=== PATIENT | female | born 1955 | race Caucasian/White ===

== ENCOUNTER 2020-05-17 09:48 | Emergency (ER) | payer MEDICARE, SELFPAY ==
--- NOTE | ~2020-05-17 | XR_ITS ---
EXAMINATION: XR humerus RT DATE: 05/17/2020 10:22 INDICATION: Right upper arm injury and pain. TECHNIQUE: 2 views of right humerus were obtained. COMPARISON: None. FINDINGS: Bone alignment is normal. No acute fracture. There is an old healed fracture deformity of p roximal humeral diaphysis. There is mild osteoarthritis of glenohumeral joint and acromioclavicular j oint. IMPRESSION: 1. Mild polyarticular osteoarthritis. Reviewed, dictated and finalized at location B. SUPERVISOR
[2020-05-17 10:00] VITALS: BP 140/78; PULSE 69; RESP 20; TEMP 37.7; O2SAT 98
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
== END 2020-05-17 11:50 | disposition home or self-care (01) ==
PROVIDERS: Emergency Provider Nurse Practitioner Family; PCP Internal Medicine
DX: S40.011A Contusion of right shoulder, initial encounter (principal); S60.222A Contusion of left hand, initial encounter; S60.221A Contusion of right hand, initial encounter; S60.00XA Contusion of unspecified finger without damage to nail, initial encounter; S50.12XA Contusion of left forearm, initial encounter; S50.11XA Contusion of right forearm, initial encounter; S70.11XA Contusion of right thigh, initial encounter; S40.021A Contusion of right upper arm, initial encounter; S51.811A Laceration without foreign body of right forearm, initial encounter; Y04.8XXA Assault by other bodily force, initial encounter
CPT/HCPCS: 73060; 99203; G0463

== ENCOUNTER 2021-07-31 18:59 | Emergency (ER) | payer MEDICARE, MEDICAID, SELFPAY ==
[2021-07-31] VITALS (26 sets, daily range): BP systolic 78–114; BP diastolic 47–71; PULSE 50–68; RESP 12–25; TEMP 36.4; O2SAT 95–100
[2021-07-31 19:27] LABS: Glucose Point of Care 96 mg/dl (65-105)
--- NOTE | 2021-07-31 19:37 | PC.NURSE ---
Pt to ED with report of accidentally taking her husbands night time medication instead of her own. Pt states their medications are sorted in a daily pill box and she accidentally picked up his instead of her own. Pt took Atorvastatin 80mg (1), Entresto 24mg-26mg (1), Metformin 500mg (2), Famotadine 20mg (1), ad Carvedilol 25mg (1). Pt has no complaints at this time. Denies dizziness, nausea, vomiting, or pain.
--- NOTE | 2021-07-31 19:38 | ECG_ITS ---
Measurements Intervals [place] Rate: 54 P: -3 AR: 195 QRS: -29 QRSD: 89 T: -27 QT: 447 QTc: 424 Interpretive Statements SINUS BRADYCARDIA BORDERLINE LEFT AXIS DEVIATION [QRS AXIS < -20] VOLTAGE CRITERIA FOR LVH [MEETS CRITERIA IN ONE OF: R(aVL), S(V1), R(V5), R(V5/V6)+S(V1)] NONSPECIFIC T-WAVE ABNORMALITY NO PREVIOUS ECG AVAILABLE FOR COMPARISON Electronically Signed On 08-01-2021 14:18:25 CDT by Della Oliveira M.D.
--- NOTE | 2021-07-31 19:41 | ED.OVERDOSE ---
HPI - Overdose General Chief Complaint: Overdose Stated Complaint: Accidently took husbands medication Time Seen by Provider: 07/31/21 19:30 Source: patient, family and RN notes reviewed Mode of arrival: ambulatory Limitations: no limitations History of Present Illness HPI Narrative: This is a 65 year old female who presents for evaluation after accidentally taking her 's medication. Patient took her 's Carvedilol 25 mg, Entresto 24/26 mg, metformin 1000 mg, famotidine 20 mg, and atorvastatin 80 mg at 4 pm. Patient normally only takes vitamins and celebrex. She states she became nauseated after eating a lot of chocolate to keep her blood sugar up. She also states she had diarrhea as well. She denies chest pain, shortness of breath, dizziness, vomiting, weakness. They checked her blood pressure at home and it was reading low. Poison control recommended that patient come to ER for evaluation. MD complaint: accidental overdose Related Data Home Medications Medication Instructions Recorded Confirmed celecoxib 200 mg PO BID 05/17/20 05/17/20 furosemide 40 mg PO DAILY 05/17/20 05/17/20 hydrocodone-acetaminophen 7.5 - 325 tablet PO TID 05/17/20 05/17/20 omeprazole 20 mg PO DAILY 05/17/20 05/17/20 potassium chloride [Klor-Con M20] 20 meq PO DAILY 05/17/20 05/17/20 Allergies Allergy/AdvReac Type Severity Reaction Status Date / Time No Known Allergies Allergy Verified 07/31/21 19:21 Review of Systems Review of Systems: All systems reviewed & are unremarkable except as noted in HPI and below PMFSH Past Medical History Medical History (Updated 08/01/21 @ 06:44 by Adri Joe MD) Arthritis Surgical History Surgical History (Updated 07/31/21 @ 19:47 by Adri Joe MD) History of knee replacement Hx of cholecystectomy Social History Social History (Updated 07/31/21 @ 19:47 by Adri Joe MD) Smoking status: Never smoker Alcohol intake: never Exam Const: General: no acute distress and alert Orientation/consciousness: patient oriented x3 Eyes: EOM: EOMs intact bilaterally Resp: Effort & Inspection: normal respiratory effort and no retractions Auscultation: clear to auscultation bilaterally Cardio: Rate: regular rate Rhythm: regular rhythm Heart sounds: no murmurs GI: GI Palp: Yes Soft to palpation, No Tenderness to palpation present (GI) and No Guarding due to palpation present (GI) Auscultation: normal bowel sounds Skin: General skin exam: normal color Rashes: no rashes Neuro: General: patient oriented x3, moves all extremities and CN's II-XI intact bilaterally Psych: Mental Status: mental status grossly normal Affect: normal affect Course Reevaluation(s) Reevaluation #1: Patient's HR has been decreasing in 40s with systolic BP in 80s. She is currently receiving IVF. Will give glucagon to check for response. Date: 07/31/21 Time: 21:00 Reevaluation #2: Patient's BP is improving. Patient is stating she is ready to go home. I tried to explain to patient that her BP is improving but it has only been improved for 30 minutes and she received medication to help. I explained that she will need to be monitored longer. Poison control states it takes 10 hours half life for coreg. I explained to patient if she leaves now she will be leaving AMA. Date: 07/31/21 Time: 21:45 Reevaluation #3: Nursing staff reports patient stated she was going home. Daughter stated she was leaving AMA. Date: 08/01/21 Time: 23:10 Vital Signs Vital signs: Vital Signs Temperature 97.6 F 07/31/21 19:16 Pulse Rate 60 07/31/21 19:16 Respiratory Rate 16 07/31/21 19:16 Blood Pressure 78/52 L 07/31/21 19:16 Pulse Oximetry 99 07/31/21 19:16 Temperature 97.6 F 07/31/21 19:16 Pulse Rate 62 07/31/21 22:15 Respiratory Rate 17 07/31/21 22:15 Blood Pressure 101/55 L 07/31/21 22:01 Pulse Oximetry 97 07/31/21 22:15 MDM - Overdose Lab Data Atte
--- NOTE | 2021-07-31 19:50 | PC.NURSE ---
Call poison control. Poison control reports expected symptoms with medications taken could include slight drowsiness, GI upset, and slight hypotension/bradycardia. All medications peak within 2-4 hours of ingestion. Pt took medications at 1600. Per poison control, monitor pt for 2-3 hours; if no change in stable condition pt can be discharged home. Dr. Joe made aware.
[2021-07-31 19:53] LABS: Basophils Absolute Auto 0.1 K/mm3 (0.0-0.1); Basophils Percent Auto 0.9 % (0.2-1.2); Eosinophils Absolute Auto 0.2 K/mm3 (0-0.3); Eosinophils Percent Auto 2.7 % (0-4.4); Hematocrit 41.8 % (37.0-47.0); Hemoglobin 13.4 g/dL (12.0-15.0); Immature Granulocyte Absolute 0.02 K/mm3 (0.00-0.031); Immature Granulocyte Percent A 0.3 % (0-0.5); Lymphocytes Absolute Auto 2.62 K/mm3 (0.9-3.2); Lymphocytes Percent Auto 34.7 % (18.3-44.2); Mean Corpuscular HGB Conc 32.1 g/dl (32-36); Mean Corpuscular Hemoglobin 31.7 pg (26-34); Mean Corpuscular Volume 98.8 fl (80-100); Mean Platelet Volume 11.8 fl (7.4-10.4); Monocytes Absolute Auto 0.5 K/mm3 (0.1-0.6); Monocytes Percent Auto 6.1 % (2.6-8.5); Neutrophils Absolute Auto 4.2 K/mm3 (1.3-6.7); Neutrophils Percent Auto 55.3 % (45.5-73.1); Platelet Count Result 197 k/mm3 (150-375); Red Blood Count 4.23 M/mm3 (4.2-5.4); Red Cell Distribution Width 13.5 % (11.5-14.5); White Blood Count 7.5 K/mm3 (4.5-10.0)
[2021-07-31] MEDS: SODIUM CHLORIDE 0.9% IV 1,000 ML 999 ML IV CONT (19:54)
[2021-07-31 20:05] LABS: Alanine Aminotransferase 17 U/L (4-35); Albumin Level 3.6 g/dL (3.5-5.1); Alkaline Phosphatase 63 U/L (38-126); Anion Gap 3 mmol/L (8-16); Aspartate Amino Transferase 28 U/L (14-36); Bilirubin,Total 0.2 mg/dL (0.2-1.3); Blood Urea Nitrogen 22 mg/dL (7-17); Calcium 8.8 mg/dL (8.4-10.2); Carbon Dioxide 26 mmol/L (22-30); Chloride 110 mmol/L (98-107); Estimated CRCL calculation 55 ml/min; Estimated Glomerular Filt Rate 56; Glucose 94 mg/dL (65-110); Magnesium 2.2 mg/dL (1.6-2.3); Sodium 139 mmol/L (137-145)
[2021-07-31 20:06] LABS: Partial Thromboplastin Time 26.1 SECONDS (22.3-36.8); Prothrombin Time 13.1 Seconds (11.1-14.7)
[2021-07-31 20:37] LABS: Lactic Acid Reflex 0.8 mmol/L (0.7-2.1)
[2021-07-31] MEDS: GLUCAGON FOR INJ 1 MG VIAL 5 MG IV PUSH (21:26)
--- NOTE | 2021-07-31 21:56 | PC.NURSE ---
closed - per elaine at poison control
--- NOTE | 2021-07-31 22:58 | PC.NURSE ---
PT REPORTS SHE IS GOING TO GO HOME. PT REPORTS SHE IS HUNGRY AND SHE IS UPSET BECAUSE NO ONE ANSWERED HER CALL LIGHT FAST SHE NEEDS. PT STATES I'VE BEEN HERE FOR A LONG TIME AND ALL YOU HAVE DONE IS GIVE ME FLUIDS. INFORMED PT POISON CONTROL RECOMMENDS HER TO BE WATCHED FOR A WHILE DUE TO INGESTION OF MEDICATIONS. PT AGITATED AND STATES I WANT TO LEAVE I'M HUNGRY. EVEN OFFERED PT MEAL AND SHE DENIED
== END 2021-07-31 23:03 | disposition left against medical advice (07) ==
LOC: ANHED 19:43
PROVIDERS: Emergency Provider General Practice; PCP Internal Medicine
DX: T65.91XA Toxic effect of unspecified substance, accidental (unintentional), initial encounter (principal); M19.90 Unspecified osteoarthritis, unspecified site; Z90.49 Acquired absence of other specified parts of digestive tract; R00.1 Bradycardia, unspecified
CPT/HCPCS: 36415; 80053; 82948; 83605; 83735; 85025; 85610; 85730; 93005; 96361; 96374; 99284; J1610; J7030

== ENCOUNTER 2022-07-05 09:10 | Emergency (ER) | payer MEDICARE, MEDICAID, SELFPAY ==
--- NOTE | 2022-07-05 09:13 | ED.URI ---
HPI - URI/Sore Throat General Chief Complaint: Upper Respiratory Infection Stated Complaint: cold/flu Time Seen by Provider: 07/05/22 09:13 Source: patient Mode of arrival: ambulatory Limitations: no limitations History of Present Illness HPI Narrative: Arcelia is a 66-year-old female patient presenting to the clinic today with complaints of headache, sore throat, fever, chills, runny nose, congestion, and body aches/chills. She reports she has had exposure to bronchitis and strep. She denies any shortness of breath or chest pain. MD elicited complaint: fever, cough, sore throat, rhinorrhea, nasal congestion and other (Headache, body aches chills) Related Data Home Medications Medication Instructions Recorded Confirmed celecoxib 200 mg capsule 200 mg PO BID 05/17/20 07/05/22 furosemide 40 mg tablet 40 mg PO DAILY 05/17/20 07/05/22 hydrocodone 7.5 mg-acetaminophen 7.5 - 325 tablet PO TID 05/17/20 07/05/22 325 mg tablet omeprazole 20 mg capsule,delayed 20 mg PO DAILY 05/17/20 07/05/22 release potassium chloride 20 mEq 20 meq PO DAILY 05/17/20 07/05/22 tablet,extended release(part/cryst) (Klor-Con M) ferrous sulfate 325 mg (65 mg 325 mg PO DAILY 07/05/22 07/05/22 iron) tablet pregabalin 50 mg capsule 50 mg PO DAILY 07/05/22 07/05/22 topiramate 100 mg tablet 100 mg PO BID 07/05/22 07/05/22 Allergies Allergy/AdvReac Type Severity Reaction Status Date / Time No Known Allergies Allergy Verified 07/31/21 19:21 Review of Systems Review of Systems: Pertinent positives per HPI. Patient denies any fever, chills, rash, headache, visual changes, dizziness, cough, shortness of breath, chest pain, palpitations, nausea, vomiting, diarrhea, constipation, abdominal pain, or any urinary issues. [facility] Past Medical History Medical History Arthritis Surgical History Surgical History History of knee replacement Hx of cholecystectomy Social History Social History Smoking status: Never smoker Alcohol intake: never Comments At the time of my signature, I reviewed and agree with the nursing past medical, surgical, social, and family history. There is no relevant family history pertinent to the patient complaint. Exam Narrative: General: Well-developed, well nourished, in no apparent distress Head: Normocephalic, atraumatic Eyes: Pupils equally round and reactive to light bilaterally, EOM intact, sclera and conjunctive clear, no discharge, lids normal Ears: TMs intact and dull, ear canals clear, no drainage, grossly hearing normal. Nose: Nares patent, clear nasal discharge, moderate inflammation, no sinus tenderness. Mouth: Oral pharynx without lesions or masses, good dentition, MMM. Oropharynx red, postnasal drip Neck: Supple, trachea midline, no enlargement of anterior or posterior cervical nodes, no thyroid masses or goiter palpable. Cardio: Regular rate and rhythm, s1 and s2 normal, no murmur appreciated. Resp: Clear to auscultation bilaterally, no rhonchi, rales, wheezing or rubs Course Course Emergency Course: Portions of this record may have been created with voice recognition software. Level of Care: Express Care Visit Vital Signs Vital signs: Vital Signs Temperature 38.5 C H 07/05/22 09:19 Pulse Rate 88 07/05/22 09:19 Respiratory Rate 16 07/05/22 09:19 Blood Pressure 124/72 07/05/22 09:19 Pulse Oximetry 98 07/05/22 09:19 Oxygen Delivery Room Air 07/05/22 09:19 Temperature 38.5 C H 07/05/22 09:19 Pulse Rate 88 07/05/22 09:19 Respiratory Rate 16 07/05/22 09:19 Blood Pressure 124/72 07/05/22 09:19 Pulse Oximetry 98 07/05/22 09:19 Oxygen Delivery Room Air 07/05/22 09:19 Vital signs reviewed MDM - URI/Sore Throat MDM Narrative Medical decision making narrative:
[2022-07-05 09:19] VITALS: BP 124/72; PULSE 88; RESP 16; TEMP 38.5; O2SAT 98
== END 2022-07-05 10:04 | disposition home or self-care (01) ==
PROVIDERS: Emergency Provider Nurse Practitioner Family; PCP Internal Medicine
DX: B34.9 Viral infection, unspecified (principal); J02.9 Acute pharyngitis, unspecified; R09.82 Postnasal drip; Z79.891 Long term (current) use of opiate analgesic; Z20.822 Contact with and (suspected) exposure to COVID-19
CPT/HCPCS: 87081; 87426; 87880; 99213; C9803; G0463

== ENCOUNTER 2022-07-06 09:01 | Emergency (ER) | payer MEDICARE, MEDICAID, SELFPAY ==
[2022-07-06 09:08] VITALS: BP 134/73; PULSE 73; RESP 20; TEMP 37.3; O2SAT 96
--- NOTE | 2022-07-06 09:19 | ED.EAR ---
HPI - Ear Problem General Chief complaint: Ear Stated complaint: Left ear Time Seen by Provider: 07/06/22 09:21 History of Present Illness HPI Narrative: patient presents with left er pain. patient states she wears hearing aids and noticed some bleeding from her left ear. no loss of hearing patient does wear heating aids in both ears. Related Data Home Medications Medication Instructions Recorded Confirmed celecoxib 200 mg capsule 200 mg PO BID 05/17/20 07/06/22 furosemide 40 mg tablet 40 mg PO DAILY 05/17/20 07/06/22 hydrocodone 7.5 mg-acetaminophen 7.5 - 325 tablet PO TID 05/17/20 07/06/22 325 mg tablet omeprazole 20 mg capsule,delayed 20 mg PO DAILY 05/17/20 07/06/22 release potassium chloride 20 mEq 20 meq PO DAILY 05/17/20 07/06/22 tablet,extended release(part/cryst) (Klor-Con M) ferrous sulfate 325 mg (65 mg 325 mg PO DAILY 07/05/22 07/06/22 iron) tablet pregabalin 50 mg capsule 50 mg PO DAILY 07/05/22 07/06/22 topiramate 100 mg tablet 100 mg PO BID 07/05/22 07/06/22 Allergies Allergy/AdvReac Type Severity Reaction Status Date / Time No Known Allergies Allergy Verified 07/06/22 09:26 Review of Systems Review of Systems: CONSTITUTIONAL: Denies fever, chills, or sweats. EYES: Denies visual changes, redness, or discharge. ENT: Denies rhinorrhea, congestion, sore throat, or otalgia. CARDIOVASCULAR: Denies chest pain, palpitations, or edema. RESPIRATORY: Denies cough or dyspnea. GASTROINTESTINAL: Denies abdominal pain, nausea, vomiting, or diarrhea. GENITOURINARY: Denies dysuria or hematuria. SKIN: Denies rash or itching. MUSCULOSKELETAL: Denies back pain, joint pain, or myalgia. NEUROLOGIC: Denies headache, numbness, or weakness. PSYCHIATRIC: Denies anxiety or depression. [facility] Past Medical History Medical History Arthritis Surgical History Surgical History History of knee replacement Hx of cholecystectomy Social History Social History Smoking status: Never smoker Alcohol intake: never Comments At time of signature, agree with nursing past medical, surgical, social and family history. There is no relevant family history pertinent to the presenting complaint Exam Narrative: GENERAL: Well-appearing, well-nourished, and in no acute distress. HEAD: Normocephalic, atraumatic. EYES: PERRLA and EOMI. ENT: Nares clear, no rhinorrhea or epistaxis. Mucous membranes moist. NECK: Supple. CHEST: Clear to auscultation. No respiratory distress. HEART: Regular rate and rhythm. No murmur heard. Normal peripheral pulses. ABDOMEN: Soft, nontender, nondistended, normal active bowel sounds. EXTREMITIES: Normal range of motion. No edema. SKIN: Warm, dry, no rash. NEURO: No focal deficits. Alert and oriented x3. [place] Coma Scale Eye Opening: Spontaneous 4 [place] Coma Scale Motor: Obeys Commands 6 [place] Coma Scale Verbal: Oriented 5 [place] Coma Scale Total 15 HENMT: Ears: Abnormal EAC present erythema, EAC tenderness and other (tympanic membrane intact ) Course Course Emergency Course: GENERAL: Well-appearing, well-nourished, and in no acute distress. HEAD: Normocephalic, atraumatic. EYES: PERRLA and EOMI. ENT: Nares clear, no rhinorrhea or epistaxis. Mucous membranes moist. NECK: Supple. CHEST: Clear to auscultation. No respiratory distress. HEART: Regular rate and rhythm. No murmur heard. Normal peripheral pulses. ABDOMEN: Soft, nontender, nondistended, normal active bowel sounds. EXTREMITIES: Normal range of motion. No edema. SKIN: Warm, dry, no rash. NEURO: No focal deficits. Alert and oriented x3. [place] Coma Scale Eye Opening: Spontaneous 4 [place] Coma Scale Motor: Obeys Commands 6 [place] Coma Scale Verbal: Oriented 5 [place] Coma Scale Total 15 Level of Care: Express Care Visit Vital
== END 2022-07-06 09:33 | disposition home or self-care (01) ==
PROVIDERS: Emergency Provider Nurse Practitioner Family; PCP Internal Medicine
DX: H60.92 Unspecified otitis externa, left ear (principal); M19.90 Unspecified osteoarthritis, unspecified site
CPT/HCPCS: 99213; G0463

== ENCOUNTER 2022-09-25 15:26 | Emergency (ER) | payer MEDICARE, MEDICAID, SELFPAY ==
[2022-09-25 15:36] VITALS: BP 145/73; PULSE 61; RESP 16; TEMP 37.2; O2SAT 99
--- NOTE | 2022-09-25 15:54 | ED.SKABFB ---
HPI - Skin/Abscess/Foreign Bdy General Stated complaint: Rash arms up to neck Time Seen by Provider: 09/25/22 16:11 Source: patient and RN notes reviewed Mode of arrival: ambulatory Limitations: no limitations History of Present Illness HPI narrative: 66-year-old female presents with concern for a rash on her arms and neck. She reports the rash started over the weekend after she was working in her yd. She reports she also used suntan lotion later that day, the rash is not on all of the areas of her body where she use some hand lotion such as her legs. She denies swollen tongue, swollen lips, trouble breathing. MD complaint: rash Related Data Home Medications Medication Instructions Recorded Confirmed celecoxib 200 mg capsule 200 mg PO BID 05/17/20 07/06/22 furosemide 40 mg tablet 40 mg PO DAILY 05/17/20 07/06/22 hydrocodone 7.5 mg-acetaminophen 7.5 - 325 tablet PO TID 05/17/20 07/06/22 325 mg tablet omeprazole 20 mg capsule,delayed 20 mg PO DAILY 05/17/20 07/06/22 release potassium chloride 20 mEq 20 meq PO DAILY 05/17/20 07/06/22 tablet,extended release(part/cryst) (Klor-Con M) ferrous sulfate 325 mg (65 mg 325 mg PO DAILY 07/05/22 07/06/22 iron) tablet pregabalin 50 mg capsule 50 mg PO DAILY 07/05/22 07/06/22 topiramate 100 mg tablet 100 mg PO BID 07/05/22 07/06/22 Allergies Allergy/AdvReac Type Severity Reaction Status Date / Time No Known Allergies Allergy Verified 07/06/22 09:26 Review of Systems Review of Systems: CONSTITUTIONAL: Denies malaise, chills, sweats, or fever. EYES: Denies redness, or discharge. ENT: Denies rhinorrhea, congestion, swollen lips, swollen tongue CARDIOVASCULAR: Denies chest pain, palpitations, or edema. RESPIRATORY: Denies cough or dyspnea. GASTROINTESTINAL: Denies abdominal pain, nausea, vomiting SKIN: Reports rash on bilateral forearms and neck MUSCULOSKELETAL: Denies joint pain or myalgia. NEUROLOGIC: Denies headache. All systems reviewed & are unremarkable except as noted in HPI and below PMFSH Past Medical History Medical History Arthritis Surgical History Surgical History History of knee replacement Hx of cholecystectomy Social History Social History Smoking status: Never smoker Alcohol intake: never Comments At time of signature, agree with nursing past medical, surgical, social and family history. There is no relevant family history pertinent to the presenting complaint Exam Narrative: GENERAL: Well-appearing, well-nourished, and in no acute distress. HEAD: Normocephalic, atraumatic. EYES: PERRLA, conjunctivae clear, and EOMI. ENT: Mucous membranes moist. Oropharynx without edema, erythema or lesions. NECK: Supple. No lymphadenopathy CHEST: Clear to auscultation. No respiratory distress. HEART: Regular rate and rhythm. SKIN: Warm, dry. Erythematous confluent papular rash noted to the bilateral forearms in the back of the neck, 1 urea noted on the left cheek NEURO: Alert and oriented x3. PSYCH: Normal mood and affect Course Course Emergency Course: Patient is aware of diagnosis, understands and agrees to treatment plan. Anticipatory guidance given. Patient agrees to follow-up as directed and is aware of reasons to seek care at the emergency department. Portions of this record may have been created with voice recognition software Level of Care: Express Care Visit Vital Signs Vital signs: Vital Signs Temperature 99 F 09/25/22 15:36 Pulse Rate 61 09/25/22 15:36 Respiratory Rate 16 09/25/22 15:36 Blood Pressure 145/73 H 09/25/22 15:36 Pulse Oximetry 99 09/25/22 15:36 Oxygen Delivery Room Air 09/25/22 15:36 Temperature 99 F 09/25/22 15:36 Pulse Rate 61 09/25/22 15:36 Respiratory Rate 16 09/25/22 15:36 Bloo
== END 2022-09-25 16:27 | disposition home or self-care (01) ==
PROVIDERS: Emergency Provider Nurse Practitioner; PCP Internal Medicine
DX: L25.5 Unspecified contact dermatitis due to plants, except food (principal); M19.90 Unspecified osteoarthritis, unspecified site
CPT/HCPCS: 99213; G0463

== ENCOUNTER 2022-10-08 08:49 | Emergency (ER) | payer MEDICARE, MEDICAID, SELFPAY ==
[2022-10-08 08:54] VITALS: BP 136/84; PULSE 88; RESP 20; TEMP 37; O2SAT 100
--- NOTE | 2022-10-08 08:59 | ED.SKABFB ---
HPI - Skin/Abscess/Foreign Bdy General Chief complaint: Skin/Abscess/Foreign Body Stated complaint: Rash on face Time Seen by Provider: 10/08/22 08:50 Source: patient and RN notes reviewed History of Present Illness HPI narrative: PATIENT IS A 66-YEAR-OLD FEMALE PRESENTS TO URGENT CARE WITH COMPLAINTS OF A RASH TO THE FACE. PATIENT PRESENTED TO THE URGENT CARE ON 09/25 AND WAS GIVEN A MEDROL DOSEPAK AND TRIAMCINOLONE FOR THE RASH ON BILATERAL ARMS. PATIENT THEN FOLLOWED UP WITH HER DOCTOR LAST FRIDAY AND WAS PLACED ON ANOTHER MEDROL DOSEPAK FOR THE RASH AROUND HER EYE AND FOREHEAD. PATIENT BELIEVES THAT SHE INITIALLY GOT INTO [facility]. PATIENT WAS NOT SEEN BY HER PCP AT THE TIME OF THE LAST PRESCRIPTION REFILL. NO OTHER ACUTE COMPLAINTS. NO ACUTE DISTRESS NOTED. PATIENT AWARE OF THE PLAN OF CARE. SOME PARTS OF THIS DICTATION WERE GENERATED BY VOICE RECOGNITION SOFTWARE AND MAY CONTAIN TYPOGRAPHICAL AND/OR GRAMMATICAL INACCURACIES. Related Data Home Medications Medication Instructions Recorded Confirmed celecoxib 200 mg capsule 200 mg PO BID 05/17/20 10/08/22 furosemide 40 mg tablet 40 mg PO DAILY 05/17/20 10/08/22 potassium chloride 20 mEq 20 meq PO DAILY 05/17/20 10/08/22 tablet,extended release(part/cryst) (Klor-Con M) ferrous sulfate 325 mg (65 mg 325 mg PO DAILY 07/05/22 10/08/22 iron) tablet Allergies Allergy/AdvReac Type Severity Reaction Status Date / Time No Known Allergies Allergy Verified 10/08/22 09:02 Review of Systems Review of Systems: CONSTITUTIONAL: Denies fever, chills, or sweats. EYES: Denies visual changes, redness, or discharge. ENT: Denies rhinorrhea, congestion, sore throat, or otalgia. CARDIOVASCULAR: Denies chest pain, palpitations, or edema. RESPIRATORY: Denies cough or dyspnea. GASTROINTESTINAL: Denies abdominal pain, nausea, vomiting, or diarrhea. GENITOURINARY: Denies dysuria or hematuria. SKIN: Reports of a rash around the left eye MUSCULOSKELETAL: Denies back pain, joint pain, or myalgia. NEUROLOGIC: Denies headache, numbness, or weakness. All other systems reviewed are negative, except as documented in HPI. [facility] Past Medical History Medical History Arthritis Surgical History Surgical History History of knee replacement Hx of cholecystectomy Social History Social History Smoking status: Never smoker Alcohol intake: never Comments At the time of my signature, I reviewed and agree with the nursing past medical, surgical, social, and family history. There is no relevant family history pertinent to the patient complaint. Exam Narrative: GENERAL: This is a well-nourished, well-developed patient, in no apparent distress. HEAD: normocephalic, atraumatic. EYES: PERRL. Sclera clear/white. Vision is grossly intact. EARS: External ears normal NOSE: External nose normal with no obvious nasal discharge, nares without redness, no rhinorrhea. THROAT: Mucous membranes moist NECK: Neck supple SKIN: Mild erythema/excoriation/dermatitis surrounding the left eye more notable to the medial upper orbital rim NEURO: awake, alert, and oriented to person, place and time. There were no obvious focal neurologic abnormalities. EXTREMITIES: No clubbing, cyanosis, or edema. Course Course Level of Care: Express Care Visit Vital Signs Vital signs: Vital Signs Temperature 98.6 F 10/08/22 08:54 Pulse Rate 88 10/08/22 08:54 Respiratory Rate 20 10/08/22 08:54 Blood Pressure 136/84 10/08/22 08:54 Pulse Oximetry 100 10/08/22 08:54 Oxygen Delivery Room Air 10/08/22 08:54 Temperature 98.6 F 10/08/22 08:54 Pulse Rate 88 10/08/22 08:54 Respiratory Rate 20 10/08/22 08:54 Blood Pressure 136/84 10/08/22 08:54 Pulse Oximetry 100 10/08/22 08:54 Oxygen Delive
== END 2022-10-08 09:16 | disposition home or self-care (01) ==
PROVIDERS: Emergency Provider Nurse Practitioner Family; PCP Internal Medicine
DX: L25.9 Unspecified contact dermatitis, unspecified cause (principal); M19.90 Unspecified osteoarthritis, unspecified site
CPT/HCPCS: 99213; G0463

== ENCOUNTER 2023-01-04 13:48 | Emergency (ER) | payer MEDICARE, MEDICAID, SELFPAY ==
[2023-01-04 14:00] VITALS: BP 123/68; RESP 16; TEMP 36.8; O2SAT 100
--- NOTE | 2023-01-04 14:04 | ED.GENADULT ---
HPI - General Adult General Chief complaint: Upper Respiratory Infection Stated complaint: sore throat/abdo pain Source: patient and RN notes reviewed History of Present Illness HPI narrative: 67 yo F presents to urgent care with complaints of sore throat, diarrhea, [place], nausea, lower abdominal discomfort, and lightheadedness. Pt states , she was at [employer] when she suddenly started to not feel well. Pt states she went home and had diarreha. Pt states she ate a little something and slept the majority of the day. Yesterday, her throat began to hurt and the rest of her symptoms began. Pt denies any vomiting, fevers, chest pain, or SOB. Pt denies any ear pain. Reports some congestion. States her diarrhea is getting better. Pt has taken an OTC cold and sinus med. Related Data Home Medications Medication Instructions Recorded Confirmed celecoxib 200 mg capsule 200 mg PO BID 05/17/20 10/08/22 furosemide 40 mg tablet 40 mg PO DAILY 05/17/20 10/08/22 potassium chloride 20 mEq 20 meq PO DAILY 05/17/20 10/08/22 tablet,extended release(part/cryst) (Klor-Con M) ferrous sulfate 325 mg (65 mg 325 mg PO DAILY 07/05/22 10/08/22 iron) tablet hydrocodone 7.5 mg-acetaminophen tablet 01/04/23 325 mg tablet omeprazole 20 mg capsule,delayed mg 01/04/23 release pregabalin 50 mg capsule mg 01/04/23 topiramate 100 mg tablet mg 01/04/23 Allergies Allergy/AdvReac Type Severity Reaction Status Date / Time No Known Allergies Allergy Verified 10/08/22 09:02 Review of Systems Review of Systems: Pertinent positives and pertinent negatives per HPI. [facility] Past Medical History Medical History Arthritis Surgical History Surgical History History of knee replacement Hx of cholecystectomy Social History Social History Smoking status: Never smoker Alcohol intake: never Comments At the time of my signature, I reviewed and agree with the nursing past medical, surgical, social, and family history. There is no relevant family history pertinent to the patient complaint. Exam Narrative: GENERAL: This is a well-nourished, well-developed patient, in no apparent distress. HEAD: normocephalic, atraumatic. EYES: Sclera clear/white. Vision is grossly intact. EARS: External ears normal, auditory canals clear and without drainage. Hearing grossly intact. NOSE: External nose normal with no obvious nasal discharge, nares without redness, no rhinorrhea. THROAT: Mucous membranes moist, posterior pharynx erythremic. NECK: Neck supple, non-tender without lymphadenopathy, masses or thyromegaly. CARDIOVASCULAR: Regular rate and rhythm without murmurs, gallops, or rubs. RESPIRATORY: Clear to auscultation. Breath sounds equal bilaterally. No wheezes, rales, or rhonchi. GASTROINTESTINAL: Abdomen soft, nondistended. Bowel sounds are active. No hepato-splenomegaly, or palpable masses. No guarding. Slight tenderness over suprapubic area. SKIN: warm, intact with no suspicious lesions or rash, good texture and turgor. NEURO: awake, alert, and oriented to person, place and time. There were no obvious focal neurologic abnormalities. BACK: Nontender without deformity or crepitus. No flank tenderness. Course Course Level of Care: Express Care Visit Vital Signs Vital signs: Vital Signs Temperature 98.3 F 01/04/23 14:00 Respiratory Rate 16 01/04/23 14:00 Blood Pressure 123/68 01/04/23 14:00 Pulse Oximetry 100 01/04/23 14:00 Oxygen Delivery Room Air 01/04/23 14:00 Temperature 98.3 F 01/04/23 14:00 Pulse Rate 63 01/04/23 14:31 Respiratory Rate 16 01/04/23 14:00 Blood Pressure 123/68 01/04/23 14:00 Pulse Oximetry 100 01/04/23 14:00 Oxygen Delivery Room Air 01/04/23 14:00 Reviewed Medical Decision [place]
[2023-01-04 14:31] VITALS: PULSE 63
== END 2023-01-04 14:43 | disposition home or self-care (01) ==
PROVIDERS: Emergency Provider Nurse Practitioner Family; PCP Internal Medicine
DX: K52.9 Noninfective gastroenteritis and colitis, unspecified (principal); Z20.822 Contact with and (suspected) exposure to COVID-19; M19.90 Unspecified osteoarthritis, unspecified site
CPT/HCPCS: 81003; 87081; 87426; 87880; 99213; C9803; G0463

== ENCOUNTER 2023-04-26 08:21 | Emergency (ER) | payer MEDICARE, MEDICAID, SELFPAY ==
[2023-04-26 08:31] VITALS: BP 149/71; PULSE 60; RESP 16; TEMP 36.8; O2SAT 100
--- NOTE | 2023-04-26 08:47 | ED.GENADULT ---
HPI - General Adult General Chief complaint: Upper Respiratory Infection Stated complaint: Sore Throat/Shortness of Breath/Nausea Source: patient, RN notes reviewed and old records reviewed Mode of arrival: ambulatory Limitations: no limitations History of Present Illness HPI narrative: 67-year-old female presents to [facility] with complaint cough, congestion, sore throat, fever, nausea, diarrhea, myalgia this started 2 days ago. Patient taking [id number] medications with no relief. Patient denies chest pain, shortness of breath, weakness, vomiting MD complaint: sore throat, congestion Onset (ago): day(s) (2-3) Related Data Home Medications Medication Instructions Recorded Confirmed celecoxib 200 mg capsule 200 mg PO BID 05/17/20 10/08/22 furosemide 40 mg tablet 40 mg PO DAILY 05/17/20 10/08/22 potassium chloride 20 mEq 20 meq PO DAILY 05/17/20 10/08/22 tablet,extended release(part/cryst) (Klor-Con M) ferrous sulfate 325 mg (65 mg 325 mg PO DAILY 07/05/22 10/08/22 iron) tablet hydrocodone 7.5 mg-acetaminophen tablet 01/04/23 325 mg tablet omeprazole 20 mg capsule,delayed mg 01/04/23 release pregabalin 50 mg capsule mg 01/04/23 topiramate 100 mg tablet mg 01/04/23 Allergies Allergy/AdvReac Type Severity Reaction Status Date / Time No Known Allergies Allergy Verified 10/08/22 09:02 Review of Systems Constitutional: Constitutional: Reports no additional constitutional complaints, Reports body ache(s), Denies chills, Denies fatigue, Reports fever(s) and Denies headache(s) Eyes: Eyes: Reports no additional eye complaints and Denies blurry vision ENT: Reports system reviewed and no additional complaints, except as documented, Denies vertigo, Denies dizziness, Denies ear discharge, Denies otalgia, Denies facial pain, Denies headache(s), Reports nasal congestion, Denies nasal discharge, Denies sinus pain, Denies sinus pressure and Reports sore throat Cardiovascular: Cardiovascular: Reports no additional cardiovascular complaints, Denies chest pain, Denies chest pain at rest, Denies rapid heart rate and Denies dyspnea Respiratory: Respiratory: Reports no additional respiratory complaints, Denies chest congestion, Reports cough, Denies pain on inspiration, Denies pain with cough and Denies dyspnea Gastrointestinal: Gastrointestinal: Denies abdominal pain, Reports diarrhea, Reports nausea and Denies vomiting Integumentary/Breasts: Skin/Breast: Denies rash Neurologic: Reports system reviewed and no additional complaints, except as documented, Denies vertigo, Denies dizziness and Denies headache(s) Endocrine: Endocrine: Denies fatigue PMFSH Past Medical History Medical History Arthritis Surgical History Surgical History History of knee replacement Hx of cholecystectomy Social History Social History Smoking status: Never smoker Alcohol intake: never Comments At the time of my signature, I reviewed and agree with the nursing past medical, surgical, social, and family history. There is no relevant family history pertinent to the patient complaint. Exam Const: General: cooperative, healthy appearing, no acute distress and well nourished Nutritional Appearance: well nourished Orientation/consciousness: patient oriented x3 Limitations: no limitations HENMT: Head: normal to inspection and normocephalic Ears: external ears normal, TM's normal bilaterally, mastoids normal and Abnormal EAC present Face/Nose/Sinus: normal facial exam Face and sinus: normal facial exam Mouth: Yes Normal oral and palatal mucosa present, Yes oropharynx normal and Yes moist mucous membranes Throat: uvula midline, posterior oropharynx abnormal erythema and no uvular edema Eyes: General: appearance normal, both eyes and all related structures
== END 2023-04-26 09:14 | disposition home or self-care (01) ==
PROVIDERS: Emergency Provider Registered Nurse; PCP Internal Medicine
DX: J02.9 Acute pharyngitis, unspecified (principal); B97.89 Other viral agents as the cause of diseases classified elsewhere; Z96.659 Presence of unspecified artificial knee joint; Z20.822 Contact with and (suspected) exposure to COVID-19
CPT/HCPCS: 87081; 87426; 87804; 87880; 99213; C9803; G0463

== ENCOUNTER 2024-01-03 09:04 | Emergency (ER) | payer MEDICARE, MEDICAID, SELFPAY ==
[2024-01-03 09:12] VITALS: BP 147/69; PULSE 51; RESP 20; TEMP 36.5; O2SAT 100
--- NOTE | 2024-01-03 09:38 | ED.GENADULT ---
HPI - General Adult General Chief complaint: Unspecified Stated complaint: had cardio version/heart feels off Time Seen by Provider: 01/03/24 09:24 Source: patient, RN notes reviewed and old records reviewed Mode of arrival: ambulatory Limitations: no limitations History of Present Illness HPI narrative: 68-year-old female to Express Care for complaint dizziness, weakness, lightheadedness, shortness of breath since yesterday. Patient endorses cardioversion 1 month ago as well as recent medication adjustments. Patient states that she checked her vitals this morning and that her rate was 45 at home. Patient drove herself to [facility], stating that she wants to get checked out. Patient denies chest pain, recent illness, allergy. Patient hypertensive and bradycardic in triage. Patient ambulates with steady gait. Patient resting anxiously and tearful in exam room. Respirations even and nonlabored. Patient in no acute distress. Related Data Home Medications Medication Instructions Recorded Confirmed celecoxib 200 mg capsule 200 mg PO BID 05/17/20 10/08/22 furosemide 40 mg tablet 40 mg PO DAILY 05/17/20 10/08/22 ferrous sulfate 325 mg (65 mg 325 mg PO DAILY 07/05/22 10/08/22 iron) tablet hydrocodone 7.5 mg-acetaminophen tablet 01/04/23 325 mg tablet omeprazole 20 mg capsule,delayed mg 01/04/23 release pregabalin 50 mg capsule mg 01/04/23 topiramate 100 mg tablet mg 01/04/23 alendronate 70 mg tablet mg PO 01/03/24 amiodarone 200 mg tablet mg 01/03/24 apixaban 5 mg tablet (Eliquis) mg 01/03/24 lisinopril 2.5 mg tablet mg 01/03/24 topiramate 100 mg tablet mg 01/03/24 Allergies Allergy/AdvReac Type Severity Reaction Status Date / Time No Known Allergies Allergy Verified 10/08/22 09:02 Review of Systems Review of Systems: All systems reviewed & are unremarkable except as noted in HPI and below Constitutional: Constitutional: Reports as per HPI and Reports weakness Eyes: Eyes: Reports no additional eye complaints ENT: Reports system reviewed and no additional complaints, except as documented Cardiovascular: Cardiovascular: Reports as per HPI, Denies chest pain, Denies syncope, Reports lightheadedness, Denies dyspnea and Reports slow heart rate Respiratory: Respiratory: Reports no additional respiratory complaints, Denies cough and Reports dyspnea Musculoskeletal: Musculoskeletal: Reports no additional musculoskeletal complaints Neurologic: Reports system reviewed and no additional complaints, except as documented Psychiatric: Psychiatric: Reports no additional psychiatric complaints PMFSH Past Medical History Medical History Arthritis Surgical History Surgical History History of knee replacement Hx of cholecystectomy Social History Social History Smoking status: Never smoker Alcohol intake: never Comments At the time of my signature, I reviewed and agree with the nursing past medical, surgical, social, and family history. There is no relevant family history pertinent to the patient complaint. Exam Const: General: cooperative, no acute distress, well developed, alert, anxious, tired appearing, uncomfortable, well groomed and well nourished Nutritional Appearance: well nourished Orientation/consciousness: patient oriented x3 Limitations: no limitations HENMT: Head: normal to inspection Ears: external ears normal Face/Nose/Sinus: Normal external nose present, Normal nares present, normal facial exam, No erythema and No edema Face and sinus: normal facial exam, no erythema and no edema Mouth: Yes Normal oral and palatal mucosa present Eyes: General: appearance normal, both eyes and all related structures Neck: Neck: normal visual inspection, full ROM and no meningeal signs Lymphatic: no lymphade
--- NOTE | 2024-01-03 09:50 | ECG_ITS ---
Test Date: 2024-01-03 09:25:34 Measurements Intervals [place] Rate: 40 P: -63 NH: 151 QRS: -36 QRSD: 98 T: 267 QT: 493 QTc: 405 Interpretive Statements SLOW SINUS BRADYCARDIA WITH MARKED SINUS ARRHYTHMIA WITH OCCASIONAL SUPRAVENTRICULAR PREMATURE COMPLEXES LEFT AXIS DEVIATION ST-T WAVE ABNORMALITY IN ANTEROLAT/INF LEADS- CONSIDER ISCHEMIA BASELINE WANDER- I, II, AVR, AVL, V1 ABNORMAL ECG No previous ECG available for comparison Electronically Signed On 01-03-2024 10:50:37 CDT by Pradeep Torres D.O.
--- NOTE | 2024-01-03 09:55 | PC.NURSE ---
Brought direct to room, EKG done and shown to provider. Patient remains stable. No SOB or chest pain. States doctor removed her metoprolol 3 days ago. Arranging to go to hospital. EMS called.
== END 2024-01-03 10:00 | disposition short-term general hospital (02) ==
LOC: EXPBETH 09:07
PROVIDERS: Emergency Provider Nurse Practitioner Family; PCP Internal Medicine
DX: R00.1 Bradycardia, unspecified (principal); R42 Dizziness and giddiness; R53.1 Weakness; R94.31 Abnormal electrocardiogram [ECG] [EKG]; M19.90 Unspecified osteoarthritis, unspecified site
CPT/HCPCS: 93005; 99215; G0463

== ENCOUNTER 2024-01-03 10:33 | Emergency (ER) | payer MEDICARE, MEDICAID, SELFPAY ==
--- NOTE | ~2024-01-03 | XR_ITS ---
EXAMINATION: XR chest 2V DATE: 01/03/2024 11:11 INDICATION: Weakness. Bradycardia. TECHNIQUE: Frontal and lateral views of the chest were obtained. COMPARISON: None. FINDINGS: There is no pneumonia, pleural effusion, or pneumothorax. Cardiomegaly is noted. Surgical c lips in the right upper quadrant are likely from cholecystectomy. IMPRESSION: 1. Cardiomegaly. Reviewed, dictated and finalized at location A. IMPRESSION: 1. Cardiomegaly.
[2024-01-03 10:32] VITALS: BP 153/59; PULSE 58; RESP 20; O2SAT 100
--- NOTE | 2024-01-03 10:39 | ECG_ITS ---
Test Date: 2024-01-03 10:41:18 Measurements Intervals [place] Rate: 44 P: 7 IN: 173 QRS: -34 QRSD: 97 T: -32 QT: 478 QTc: 410 Interpretive Statements SINUS BRADYCARDIA LEFT AXIS DEVIATION DELAYED PRECORDIAL R/S TRANSITION LEFT VENTRICULAR HYPERTROPHY WITH ST-T CHANGE NONSPECIFIC ST & T-WAVE ABNORMALITY- ANTEROLAT/INF LEADS BASELINE ARTIFACT- I, II, III, AVR, AVL, AVF, V1-V6 ABNORMAL ECG Compared to ECG 01/03/2024 09:25:34 NO SIGNIFICANT CHANGE Electronically Signed On 01-03-2024 10:44:31 CDT by Pradeep Torres D.O.
[2024-01-03 10:40] VITALS: TEMP 37.2
--- NOTE | 2024-01-03 11:15 | ED.WEAKNESS ---
HPI - Weakness General Chief complaint: Weakness Stated complaint: weakness Time Seen by Provider: 01/03/24 10:47 Source: patient and family (Daughter and granddaughter) Limitations: no limitations History of Present Illness HPI Narrative: Patient presents with complaint of generalized weakness since Friday. She presented from Urgent Care for this concern. She does not note any unilateral symptoms. She was cardioverted at [facility] approximately 6 weeks ago for atrial fibrillation. 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 Read through [facility] recommended that her metoprolol be discontinued which was done on Friday. She is also noting some dyspnea on exertion and dizziness but she denies any chest pain. She lives with her with not sick. She denies any fever or cough. She does note that she will have some lower extremity swelling at the end of the day. Related Data Home Medications Medication Instructions Recorded Confirmed celecoxib 200 mg capsule 200 mg PO BID 05/17/20 10/08/22 furosemide 40 mg tablet 40 mg PO DAILY 05/17/20 10/08/22 ferrous sulfate 325 mg (65 mg 325 mg PO DAILY 07/05/22 10/08/22 iron) tablet hydrocodone 7.5 mg-acetaminophen tablet 01/04/23 325 mg tablet omeprazole 20 mg capsule,delayed mg 01/04/23 release pregabalin 50 mg capsule mg 01/04/23 topiramate 100 mg tablet mg 01/04/23 alendronate 70 mg tablet mg PO 01/03/24 amiodarone 200 mg tablet mg 01/03/24 apixaban 5 mg tablet (Eliquis) mg 01/03/24 lisinopril 2.5 mg tablet mg 01/03/24 topiramate 100 mg tablet mg 01/03/24 Allergies Allergy/AdvReac Type Severity Reaction Status Date / Time No Known Allergies Allergy Verified 10/08/22 09:02 [facility] Past Medical History Medical History Arthritis Chronic anticoagulation since Afib diagnosis summer 2023 Heart failure History of atrial fibrillation cardioverted @ [facility] summer 2023 Surgical History Surgical History History of knee replacement Hx of cholecystectomy Social History Social History (Updated 01/03/24 @ 11:30 by Ruthie Curran MD) Smoking status: Never smoker Alcohol intake: never Living arrangements: with family Additional living arrangements comments: Exam Narrative: GENERAL: Well-appearing, well-nourished, and in no acute distress. HEAD: Normocephalic, atraumatic. EYES: Non injected, non icteric ENT: Nares clear, no rhinorrhea or epistaxis. NECK: Supple. CHEST: Speaking in full sentences. No respiratory distress. Lungs clear to auscultation bilaterally without wheezes, crackles HEART: Bradycardic rate and rhythm. ABDOMEN: Soft, nondistended. EXTREMITIES: Normal range of motion. No lower extremity edema. SKIN: Warm, dry, no rash. NEURO: No focal deficits. Alert and oriented x3. PSYCH: Normal mood and affect. Course Vital Signs Vital signs: Vital Signs Pulse Rate 58 L 01/03/24 10:32 Respiratory Rate 20 01/03/24 10:32 Blood Pressure 153/59 H 01/03/24 10:32 Pulse Oximetry 100 01/03/24 10:32 Oxygen Delivery Room Air 01/03/24 10:32 Temperature 99 F 01/03/24 10:40 Pulse Rate 58 L 01/03/24 10:32 Respiratory Rate 20 01/03/24 10:32 Blood Pressure 153/59 H 01/03/24 10:32 Pulse Oximetry 100 01/03/24 10:32 Oxygen Delivery Room Air 01/03/24 10:32 MDM - Weakness MDM Narrative Medical decision making narrative: Patient presents with report of generalized weakness as well as dyspnea on exertion and dizziness. She was recently cardioverted for atrial fibrillation approximately 6 weeks ago at [facility]. She has subsequently had a low heart rate and her metoprolol was discontinued earlier this week on Friday for that reason. In the emergency department she is afebrile with vital signs notable for mild bradycardia and
[2024-01-03 11:34] LABS: Basophils Percent Auto 0.5 % (0.2-1.2); Eosinophils Absolute Auto 0.1 K/mm3 (0-0.3); Eosinophils Percent Auto 1.4 % (0-4.4); Hematocrit 39.1 % (37.0-47.0); Hemoglobin 12.7 g/dL (12.0-15.0); Immature Granulocyte Absolute 0.02 K/mm3 (0.00-0.031); Immature Granulocyte Percent A 0.5 % (0-0.5); Immature Platelet Fraction Pct 8.8 % (0.9-11.2); Lymphocytes Absolute Auto 1.19 K/mm3 (0.9-3.2); Lymphocytes Percent Auto 27.4 % (18.3-44.2); Mean Corpuscular HGB Conc 32.5 g/dl (32-36); Mean Corpuscular Hemoglobin 31.5 pg (26-34); Mean Platelet Volume 13.9 fl (7.4-10.4); Monocytes Absolute Auto 0.3 K/mm3 (0.1-0.6); Monocytes Percent Auto 6.7 % (2.6-8.5); Neutrophils Absolute Auto 2.8 K/mm3 (1.3-6.7); Neutrophils Percent Auto 63.5 % (45.5-73.1); Platelet Count Result 125 k/mm3 (150-375); Red Blood Count 4.03 M/mm3 (4.2-5.4); White Blood Count 4.4 K/mm3 (4.5-10.0)
[2024-01-03 11:39] LABS: Add Urine Microscopic? NO; Appearance Urine Clear (Clear); Bilirubin Urine Negative (Negative); Blood Urine Negative (Negative); Color Urine Yellow (Yellow); Glucose Urine UA 1+ mg/dL (Negative); Ketones Urine Negative (Negative); Leukocyte Esterase Ur Negative LEU/UL (Negative); Nitrate Urine Negative (Negative); Protein Urine Negative (Negative); Specific Grav Ur 1.011 (1.001-1.035); Urobilinogen Urine 0.2 mg/dL (<2.0); pH Urine 5.5 (5.0-9.0)
[2024-01-03 12:13] LABS: Influenza A QL RT-PCR Negative (Negative); Influenza B QL RT-PCR Negative (Negative); RSV RNA, RT-PCR Negative (Negative); SARS-CoV-2 RNA PCR Negative (Negative)
[2024-01-03 12:21] LABS: Alanine Aminotransferase 16 U/L (6-35); Albumin Level 4.3 g/dL (3.5-5.1); Alkaline Phosphatase 81 U/L (38-126); Anion Gap 10 mmol/L (4-12); Aspartate Amino Transferase 25 U/L (14-36); Bilirubin,Total 0.4 mg/dL (0.2-1.3); Blood Urea Nitrogen 26 mg/dL (7-17); Calcium 8.8 mg/dL (8.4-10.2); Carbon Dioxide 25 mmol/L (22-30); Chloride 105 mmol/L (98-107); Estimated CRCL calculation 52 ml/min; Estimated Glomerular Filt Rate > 60; Glucose 110 mg/dL (65-110); Magnesium 2.4 mg/dL (1.6-2.3); Potassium 4.1 mmol/L (3.4-5.0); Sodium 140 mmol/L (137-145)
[2024-01-03 12:23] LABS: D Dimer < 0.27 ug/mL (<0.48)
[2024-01-03 12:31] LABS: NT Pro B Type Natriuretic Pept 1830 pg/mL (19.9-100); Troponin I < 0.012 ng/mL (0.000-0.034)
[2024-01-03 13:41] LABS: Free T4 Free Thyroxine 1.34 ng/mL (0.78-2.19)
[2024-01-03 13:59] VITALS: PULSE 47
[2024-01-03 14:01] VITALS: BP 113/52; PULSE 47; RESP 16; O2SAT 100
[2024-01-06 12:08] LABS: T3 Free 2.2 pg/mL (2.3-4.2)
== END 2024-01-03 14:03 | disposition home or self-care (01) ==
PROVIDERS: Emergency Provider Student in an Organized Health Care Education/Training Program; PCP Internal Medicine
DX: R53.1 Weakness (principal); D72.819 Decreased white blood cell count, unspecified; D69.6 Thrombocytopenia, unspecified; E03.9 Hypothyroidism, unspecified; Z86.79 Personal history of other diseases of the circulatory system
CPT/HCPCS: 36415; 71046; 80053; 81003; 83735; 83880; 84439; 84443; 84480; 84484; 85025; 85055; 85380; 87637; 93005; 99284

== ENCOUNTER 2024-06-13 10:48 | Emergency (ER) | payer MEDICARE, MEDICAID, SELFPAY ==
--- NOTE | ~2024-06-13 | XR_ITS ---
CHEST RADIOGRAPH, PA AND LATERAL CLINICAL HISTORY: cough and SOB . COMPARISON: 10/2023 TECHNIQUE: PA and lateral views of the chest. FINDINGS The cardiomediastinal silhouette is unremarkable. The lungs are clear. Visualized osseous structures and soft tissues are unremarkable. IMPRESSION: No focal infiltrate or effusion. Reviewed, dictated and finalized at location A. NT LAW[employer]ER
--- OUTSIDE RECORDS SUMMARY | 2024-06-13 10:51 | XMS_ITS | Continuity of Care Document ---
Author Organization [facility] Address [address] [place] [address] Phone Care Team Providers Care Young Adult Librarian Name Role Phone Nolan yDe MD Unavailable Unavailable Allergies, Adverse Reactions, Alerts Substance Reaction Status Criticality No Known Drug Allergies Active No I nformation No Known Allergies Active No Inform ation Procedures Procedure Date Office/outpatient visit,est, mod 2011 X-ray exam of wrist, complete 2 Supplemental Report Office/outpatient visit,est, mod 2011 X-ray exam of wrist, complete 2 Supplemental Report Office/outpatient visit,est, mod 2011 X-ray exam of wrist, complete 2 Supplemental Report Office/outpatient visit,est, mod 2011 X-ray exam of wrist, complete 2 Supplemental Report Office consultation, moderate 2 Wrist Brace Titan Advance Directives Directive Yes / No Effective Date File Name No Information Encounters Encounter Description Practice Location Reason(s) For Visit Diagnoses Date Provider Providers Copied on Encounter Office/outpat ient visit,est, mod [facility], [address] [facility], [place], [place], [id number], [place] tel:[phone] [facility] COLLES FRACTURE CLOSEDFX DISTAL RADIUS NEC-CLJOINT PAIN-FOREARM 2 Hardik Francisco. [address] [facility], [address], [place], [place], [id number] , [place]. tel:[phone] Office/outpat ient visit,est, [facility], [address], [id number], [place] [phone] [facility] COLLES FRACTURE CLOSEDFX DISTAL RADIUS NEC-CLJOINT PAIN-FOREARM [address] Francisco. [address] [facility], [address], [id number] , [place]. tel: [phone] Office/outpat ient visit,est, [facility], [address], [id number], [place] [phone] [facility] COLLES FRACTURE CLOSEDJOINT PAIN-FOREARM 2 Dye Nolan. [address], [id number] , [place]. tel: [phone] Office/outpat ient visit,est, [facility], [address], [id number], [place] [phone] [facility] COLLES FRACTURE CLOSEDFX DISTAL RADIUS NEC-CLJOINT PAIN-FOREARM 2 Dye Nolan. [address] [address], [place], [place], [id number] , [place]. tel: [phone] Office consultation, [facility], [address] [place] [address], [id number], [place] [phone] [facility] SPRAIN OF WRIST NOS 2 Hardik Francisco. [address], [id number] , [place]. tel: [phone] Family History Family Member Type Diagnosis Age At Onset No Information Payers Payer name Insurance type Covered green party ID Cruz bibiana(s) Bolivar Kngroo [id number] Social History Type Description Quantity Date Captured Comments Sex Female Smoking Status No Information Vital Signs Date / Time: Height Weight BMI Pulse Rate Blood Pressure Temperature Respiratory Rate Body Surface Area Head Circumference Head Circ. Percentile Wt./Carrillo. Percentile BMI percentile Pulse Ox Inhaled Ox 8:58 AM 148/75 mm[Hg] Chief Complaint And Reason For Visit No Information Reason For Referral Reason For Referral No Information History Of Present Illness Encounter Date Complaint History Of Prese nt Illness No Information Functional Status Date Functional Assessmen t No Information Instructions Date Instruction Additional Infor mation No Information Assessments Type Assessment Date No Information Patient Care Teams Name Effective Dates (start - stop) Status Members No Information
--- OUTSIDE RECORDS SUMMARY | 2024-06-13 10:51 | XMS_ITS | Encounter Summary ---
Author Organization [facility] Address [address] [place] [address] Phone Care Team Providers Care Water Pump Servicer Name Role Phone David Han MD Primary Care Provider [phone] Suly Prabhakar APRN, PHYSICAL LABORATORY ASSISTANT Unavailable + [phone] Solomon Meyers MD PhD Unavailable [phone] Marisela Hi APRN, PHYSICAL LABORATORY ASSISTANT Unavailable [phone] Suly Prabhakar APRN, PHYSICAL LABORATORY ASSISTANT Unavailable + [phone] Reason for Visit * Reason Comments Medication Refill Encounter Details Date Type Department Care Team (Late st Contact Info) Description 09/01/[address] [facility] - Internal Medicine - [place] [address] [place] [address] David Han MD [address] [place] [address] Medication Refill Social History Tobacco Use Types Packs/Day Years Used Date Smoking Tobacco: Never Passive Smoke Exposure: Never Smokeless Tobacco: Never Alcohol Use Standard Drinks/Week Comments Not Currently 0 (1 standard drink = 0.6 oz pur e alcohol) [facility] Utilities Answer Date Recorded In the past 12 months has [employer], oil, or [employer] threatened to shut off services in your home? No 07/21/2023 Social Connection and Isolat ion Panel [NHANES] Answer Date Recorded In a typical week, how many times do you talk on the phone with family, friends, or neighbors? More than three times a week 07/21/2023 How often do you get togethe r with friends or relatives? Twice a week 07/21/2023 How often do you attend chur ch or moravian services? Never 07/21/2023 Do you belong to any clubs o r organizations such as yazidi groups, unions, fraternal or athletic groups, or school groups? No 07/21/2023 How often do you attend meet ings of the clubs or organizations you belong to? Never 07/21/2023 Are you , , di vorced, , never , or living with a partner? 07/21/2023 AUDIT-C Answer Date Recorded Q1: How often do you have a drink containing alcohol? Never 07/21/2023 Q2: How many drinks containi ng alcohol do you have on a typical day when you are drinking? Patient does not drink Q3: How often do you have si x or more drinks on one occasion? Never 07/21/2023 Overall Financial Resource Strain (CARDIA) Answe r Date Recorded How hard is it for you to pa y for the very basics like food, housing, medical care, and heating? Very hard 07/21/2023 PHQ-2 Answer Date Recorded Total Score - Questions 1-9 0 04/28 [facility] Questionnaire Answer Date Recorded Do you feel stress - tense, restless, nervous, or anxious, or unable to sleep at night because your mind is troubled all the time - these days? Only a little 07/21/2023 Exercise Vital Sign Answer Date Recorde d On average, how many days pe r week do you engage in moderate to strenuous exercise (like a brisk walk)? 0 days 07/21/2023 On average, how many minutes do you engage in exercise at this level? 0 min 07/21/2023 Hunger Vital Sign Answer Date Recorded Within the past 12 months, y ou worried that your food would run out before you got the money to buy more. Often true 07/21/19 Within the past 12 months, t he food you bought just didn't last and you didn't have money to get more. Never true 07/21/2023 PRAPARE - Transportation Answer Date Re corded In the past 12 months, has l ack of transportation kept you from medical appointments or from getting medications? No 06/27 In the past 12 months, has l ack of transportation kept you from meetings, work, or from getting things needed for daily living? No 07/21/2023 Housing Stability Vital Sign Answer Gene e Recorded In the last 12 months, was t here a time when you were not able to pay the mortgage or rent on time? No 07/21/2023 In the last 12 months, how many places have you lived? 1 07/21/2023 In the last 12 months, was t here a time when you did not have a steady place to sleep or slept in a care home (including now)? No 07/21/2023 Education Answer Date Recorded What is the highest level of school you have completed or the highest degree you have received? Associate degree: occupational, technical, or vocational program 07/14/2022 Sexually Active Control Partners Comments Yes Post-menopausal Comments No Sex and Gender Information Value Date Recorded Sex Assigned at Not on file Legal Sex Female 1:44 PM CDT Gender Identity Not on file Sexual Orientation Not on file documented as of this encounter Miscellaneous Notes * Telephone Encounter - Alta Liriano RN - 09/01/2023 9:39 AM CDT Medication failed the protocol, provider to review and approve the medication order if appropriate. Requested Prescriptions Pending Prescriptions Disp Refills Klor-Con M20 20 MEQ Tablet Controlled Release [Pharmacy Med Name: KLOR-CON M20 TABLET] 90 Tablet 1 Sig: TAKE 1 TABLET BY MOUTH DAILY NEEDED Potassium Supplement Protocol Failed - 09/01/2023 7:25 AM Failed - Normal serum potassium in past 12 months No results found for: POTASSIUM , POCTK Passed - Visit with relevant provider in past 12 months or upcoming 90 days Recent Visits Date Type Provider Dept 06/16/23 Office Visit David Han MD [facility] 03/05/23 Office Visit David Han MD [facility] 12/02/22 Office Visit David Han MD [facility] 10/15/22 Office Visit David Han MD [facility] Showing recent visits within past 365 days and meeting all other requirements Future Appointments Date Type Provider Dept 09/17/23 Appointment David Han MD [facility] Showing future appointments within next 90 days and meeting all other requirements documented in this encounter Plan of Treatment Upcoming Encounters Date Type Department Care Team (Late st Contact Info) Description 06/17/2024 8:40 AM SCRUBBER MACHINE TENDER Lab [facility] Internal Medicine [facility] [address] [place] [address] Jaret [facility] 06/24/2024 8:15 AM SCRUBBER MACHINE TENDER Office Visit [facility] Internal Medicine [facility] [address] [place] [address] David Han MD [address] [facility] [place] [address] 09/13/2024 1:00 PM CDT Office Visit [facility] Medical [facility] - Cardiology - [place] [address] [place] [id number] Suly Prabhakar, RECORDS ASSOCIATE, PHYSICAL LABORATORY ASSISTANT #2 [facility] [address] [place] [address] 10/25/2024 8:00 AM CDT Office Visit [facility] Medical [facility] - Pulmonology & Sleep Medicine - [place] [address] [place] [id number] Marisela Hi, RECORDS ASSOCIATE, PHYSICAL LABORATORY ASSISTANT #[address] [facility] [address] [place] [address] documented as of this encounter Visit Diagnoses Not on filedocumented in this encounter Additional Health Concerns Assessment Noted Time PHQ-9 Depression Total Score: 0 07/26/19 21 9:00 AM CDT documented as of this encounter Care Teams Water Pump Servicer Relationship Specialty Start Date End Date David Han MD [address] [place] [address] PCP - General Internal Medicine 01/14/20 Suly Prabhakar APRN, PHYSICAL LABORATORY ASSISTANT #2 [facility], [address] [place] [address] Nurse Practitioner Advanced Practice Nurse 10/29/23 Solomon Meyers MD PhD #[address] [place] [address] Fish Butcher Interventional Cardiology 12/02/23 Marisela Hi APRN, PHYSICAL LABORATORY ASSISTANT #[address] [facility] [address] [place] [address] Nurse Practitioner Advanced Practice Nurse 01/19/24 Suly Prabhakar APRN, PHYSICAL LABORATORY ASSISTANT #2 [facility], [address] [place] [address] Nurse Practitioner Cardiology 03/24/24 documented as of this encounter
--- OUTSIDE RECORDS SUMMARY | 2024-06-13 10:51 | XMS_ITS | Encounter Summary ---
Author Organization [facility] Address [address] [place] [address] Phone Care Team Providers Care Ethics Manager Name Role Phone David Han MD Primary Care Provider [phone] Suly Prabhakar APRN, LIFE COACH Unavailable + [phone] Solomon Meyers MD PhD Unavailable [phone] Marisela Hi APRN, LIFE COACH Unavailable [phone] Suly Prabhakar APRN, LIFE COACH Unavailable + [phone] Reason for Visit * Reason Comments Medication Refill Encounter Details Date Type Department Care Team (Late st Contact Info) Description 06/06/2020 Refill [facility] - Internal Medicine - [place] [address] [place] [address] David Han MD [address] [place] [address] Medication Refill Social History Tobacco Use Types Packs/Day Years Used Date Smoking Tobacco: Never Smokeless Tobacco: Never PHQ-2 Answer Date Recorded Total Score - Questions 1-9 0 12/28 Comments No Sex and Gender Information Value Date Recorded Sex Assigned at Not on file Legal Sex Female 1:44 PM CDT Gender Identity Not on file Sexual Orientation Not on file documented as of this encounter Miscellaneous Notes * Telephone Encounter - Jaylin Terrell RN - 06/07/2020 8:05 AM CST Please review and sign. TH PLATER documented in this encounter Plan of Treatment Upcoming Encounters Date Type Department Care Team (Late st Contact Info) Description 06/17/2024 8:40 AM SMOOTH PLATER Lab [facility] Internal Medicine [facility] [address] [place] [address] [facility] 06/24/2024 8:15 AM SMOOTH PLATER Office Visit [facility] Internal Medicine [facility] [address] [place] [place] [address] David Han MD [address] [place] [address] 09/13/2024 1:00 PM CDT Office Visit [facility] Medical [facility] - Cardiology - [place] [address] [place] [address] Suly Prabhakar APRN, LIFE COACH #2 [facility], [address] [place] [address] 10/25/2024 8:00 AM CDT Office Visit [facility] Medical [facility] - Pulmonology & Sleep Medicine - [place] [address] [place] [address] Mariesla Hi, DENTAL HYGIENE ADMINISTRATIVE ASSISTANT, LIFE COACH #2 [facility] [address] [place] [address] documented as of this encounter Visit Diagnoses Not on filedocumented in this encounter Additional Health Concerns Infection Onset Date Last Indicated Resolved Time COVID - 19 11/26/2021 11/26/2021 12/06/2021 12:1 6 AM CDT COVID - 19 06/16/2023 06/16/2023 06/26/2023 12:1 6 AM SMOOTH PLATER Respiratory Rule-Out 06/16/2023 06/16/2023 024 10:28 AM SMOOTH PLATER Assessment Noted Time PHQ-9 Depression Total Score: 0 01/20/20 20 9:00 AM CDT documented as of this encounter Care Teams Ethics Manager Relationship Specialty Start Date End Date David Han MD [address] [place] [address] PCP - General Internal Medicine 01/14/20 Suly Prabhakar APRN, LIFE COACH #2 [facility], [address] [place] [address] Nurse Practitioner Advanced Practice Nurse 10/29/23 Solomon Meyers MD PhD #[address] [place] [address] Transfill Technician Interventional Cardiology 12/02/23 Marisela Hi APRN, LIFE COACH #[address] [facility] [address] [place] [address] Nurse Practitioner Advanced Practice Nurse 01/19/24 Suly Prabhakar APRN, LIFE COACH #2 [facility], [address] [place] [address] Nurse Practitioner Cardiology 03/24/24 documented as of this encounter
--- OUTSIDE RECORDS SUMMARY | 2024-06-13 10:51 | XMS_ITS | Clinical Summary ---
Author Organization [facility] Care Team Providers Care Supervisor Pipeline Maintenance Name Role Phone David Han MD Primary Care Provider [phone] Solomon Meyers MD PhD Unavailable [phone] Marisela Hi APRN, BOOK SORTER Unavailable [phone] Suly Prabhakar MOVEMENT EDUCATION SPECIALIST, BOOK SORTER Unavailable + [phone] Allergies No known active allergies Medications Multiple Vitamins-Mineral s (PRESERVISION/MARÍA TEIN PO) Take by mouth daily. Active HYDROcodone-acet aminophen (NORCO) 7.5-325 MG Tablet every 8 hours as needed. 0 Active TURMERIC PO Take 1 Tablet by mouth daily. Active Calcium Carbonate-Vitami n D 600-200 MG-UNIT Tablet Take 1 Tablet by mouth daily. Active Cyanocobalamin (VITAMIN B-12) 1000 MCG Tablet Take 1,000 mcg by mouth. 0 Active alendronate (FOSAMAX) 70 MG TabletIndication s:Age-related osteoporosis without current pathological fracture Take 1 Tablet by mouth every 7 days. 12 Tablet 3 4 Active apixaban (ELIQUIS) 5 MG TabletIndication s:Atrial Fibrillation Take 1 Tablet by mouth 2 times daily. Indications: Atrial Fibrillation 180 Tablet 1 4 Active Empagliflozin (JARDIANCE) 10 MG Tablet Take 1 Tablet by mouth daily. 90 Tablet 1 4 Active Ferrous Sulfate (Iron) 325 (65 Fe) MG Tablet Take 1 Tablet by mouth daily. 90 Tablet 1 4 Active furosemide (LASIX) 40 MG Tablet TAKE 1 TABLET BY MOUTH EVERY DAY NEEDED FOR EDEMA 90 Tablet 1 4 Active lisinopril (PRINIVIL, ZESTRIL) 5 MG Tablet Take 1 Tablet by mouth daily. 90 Tablet 1 4 Active omeprazole (PriLOSEC) 20 MG CAPSULE DELAYED RELEASE Take 1 Capsule by mouth daily. 90 Capsule 1 4 Active pregabalin (LYRICA) 100 MG CapsuleIndicatio ns:Idiopathic peripheral neuropathy Take 1 Capsule by mouth 2 times daily. 180 Capsule 1 4 Active spironolactone (ALDACTONE) 25 MG Tablet Take 1 Tablet by mouth daily. 90 Tablet 1 4 Active topiramate (TOPAMAX) 100 MG Tablet Take 1 Tablet by mouth 2 times daily. 180 Tablet 1 4 Active levothyroxine (SYNTHROID) 25 MCG Tablet 1 tab on mon, wed, fri 36 Tablet 1 4 Active metoprolol Succinate (TOPROL-XL) 25 MG TABLET SR 24 HR Take 0.5 Tablets by mouth daily. 45 Tablet 1 4 Active Active Problems Problem Noted Date Diagnosed Date Obstructive sleep apnea 04/26/2024 Chronic systolic CHF (congestive heart failure) 11/18/2023 Assessment & Plan (12/09/2023 4:32 PM CDT): Main issue for discussion today. The patient has chronic combined systolic diastolic heart failure. Appears to be rather euvolemic. She has blood pressure room to increase ED MT. She is on SGLT 2 inhibitor, beta-cristela (low dose, although limited by bradycardia), and low doses of lisinopril and spironolactone. Since she just had her BMP checked today, and results pending, I would like to hold the current course. Once the creatinine and potassium checks out, then we can increase lisinopril and spironolactone. We talked about the overarching direction of heart failure care. We talked about ICD considerations after a few months of maximal guideline directed therapy. Chronic atrial fibrillation 11/03/2023 Assessment & Plan (12/09/2023 4:29 PM CDT): Remains in sinus rhythm today. Bradycardic therefore unable to push beta- cristela. To be evaluated for AFib ablation at [facility] Continue apixaban. Age-related osteoporosis wit hout current pathological fracture 12/02/2022 Chronic anemia 05/27/2022 Chronic bilateral low back pain with right-sided sciatica 02/18/2022 Heart murmur 02/18/2022 Bilateral lower extremity edema 02/01/2021 Bariatric surgery status 07/25/2020 Overview (07/25/2020): Gastric Sleeve- 2007 Hearing impaired person, unspecified laterality 04/25/2020 Obesity (BMI 30.0-34.9) 04/25/2020 Idiopathic peripheral neuropathy 04/25/2020 Primary generalized (osteo)arthritis 07/15/2016 Gastro-esophageal reflux disease without esophag itis 07/15/2016 Resolved Problems Problem Noted Date Diagnosed Date Resolved Date Snoring 01/19/2024 04/26/2024 Witnessed episode of apnea 12/09/2023 1 Assessment & Plan (12/09/2023 4:32 PM CDT): Sleep study being arranged by primary physician. No need for stress testing prior to sleep study. Essential hypertension, benign 07/25/2020 05/10/2021 Encounters Date Type Department Care Team Description 04/26/2024 8:30 AM LEAD MECHANIC Office Visit [facility] - Pulmonology & Sleep Medicine [facility] [address] [place] [address] Marisela Hi APRN, BOOK SORTER Obstructive sleep apnea (Primary Dx) Discharge Disposition: Discharged to home or Selfcare 04/24/2024 Travel 04/16/2024 Telephone [facility] Cardiology [facility] [address] [place] [address] Suly Prabhakar APRN, BOOK SORTER Labs Only; Appointment 04/12/2024 9:00 AM LEAD MECHANIC Clinical Support [facility] Cardiology [facility] [address] [place] [address] NurseVinny Cardiology Blood pressure check (Primary Dx) Discharge Disposition: Discharged to home or Selfcare 04/12/2024 Travel 04/10/2024 Travel 04/03/2024 MyChart RX Renewal [facility] [address] [place] [address] Tiffany Garcia APRN, BOOK SORTER Medication Renewal Declined 04/03/2024 MyChart RX Renewal [facility] [address] [place] [address] David Han MD Medication Renewal Declined 03/31/2024 9:30 AM LEAD MECHANIC Clinical Support [facility] [address] [place] [address] Nurse, Vinny Cardiology Primary hypertension (Primary Dx) Discharge Disposition: Discharged to home or Selfcare 03/29/2024 Telephone [facility] Internal [facility] [address] [place] [address] David Han MD Prior Authorization 03/29/2024 Travel 03/24/2024 8:15 AM LEAD MECHANIC Office Visit [facility] [address] [place] [address] David Han MD Chronic systolic CHF (congestive heart failure) (HCC) (Primary Dx); Age-related osteoporosis without current pathological fracture; Idiopathic peripheral neuropathy; Acquired hypothyroidism; Chronic atrial fibrillation (HCC) Discharge Disposition: Discharged to home or Selfcare 03/23/2024 10:30 AM LEAD MECHANIC Office Visit [facility] [address] [place] [address] Suly Prabhakar MOVEMENT EDUCATION SPECIALIST, BOOK SORTER Atrial fibrillation, unspecified type (HCC) (Primary Dx) Discharge Disposition: Discharged to home or Selfcare 03/22/2024 Travel from Last 3 Months Immunizations Immunization Administration Dates Next Due COVID-19, MRNA, LNP-S, BIVAL ENT , MODERNA, 50 MCG/0.5 ML (12+) 01/23/2023 Covid-19, Mrna, Lnp-s, Pf, 3 0 Mcg/0.3 Ml Dose (Pfizer) 12/31/2023 Covid-19, Mrna, Lnp-s, Pf, T ris-sucrose, 3 Mcg/0.3 Ml 07/09/2023 Covid-19, Mrna, Lnp-s, Pf, T ris-sucrose, 30 Mcg/0.3 Ml (Pfizer) 07/09/2023 Influenza Vaccine 03/09/2019 Influenza Vaccine greater than 3 yrs 12/31/2023, 12/27/2022 Influenza Vaccine, Quadrivalent, PF 02/18/2022,1 ,01/20/2020 Influenza, High-dose, Quadrivalent 12/27/2022 Influenza, Injectable, Mdck,quadrivalent,with Preservative 03/09/2019 Influenza, Injectable, Quadrivalent 04/16/2018 Influenza, Seasonal, Injectable, Undefined 03/13 Pneumococcal Vaccine Adult - 23 Valent 2 Pneumococcal conjugate PCV20 , polysaccharide [id number] conjugate, adjuvant, PF 12/31/2023 RSV, Recombinant, Protein Alberts bunit Rsvpref, Adjuvant Recon (Arexvy) 04/08/2023 Zoster Vaccine Recombinant 12/02/2022,05/19/2020 Zoster Vaccine, live 12/02/2022 Family History Medical History Relation Name Comments Hypertension Daughter 1 Bipolar Disorder Daughter 2 Mental Disorder, Other Daughter 3 thyro id issues Cancer Father ashley lung Diabetes Mother [place] Heart Disease Mother [place] High Cholesterol Mother [place] Stroke Mother [place] Relation Name Status Comments Daughter 1 Alive Daughter 2 Alive Daughter 3 Alive Father ashley Mother [place] Sister Social History Tobacco Use Types Packs/Day Years Used Date Smoking Tobacco: Never Passive Smoke Exposure: Never Smokeless Tobacco: Never Tobacco Cessation:Counseling Given: No Alcohol Use Standard Drinks/Week Comments Not Currently 0 (1 standard drink = 0.6 oz pur e alcohol) [facility] Utilities Answer Date Recorded In the past 12 months has fruux, gas, oil, or water [employer] threatened to shut off services in your home? No 11/03/2023 Social Connection and Isolat ion Panel [NHANES] Answer Date Recorded In a typical week, how many times do you talk on the phone with family, friends, or neighbors? More than three times a week 09/16/2023 How often do you get togethe r with friends or relatives? Twice a week 09/16/2023 How often do you attend chur ch or tenriism services? 1 to 4 times per year 09/16/2023 Do you belong to any clubs o r organizations such as jehovah's witness groups, unions, fraternal or athletic groups, or school groups? Yes 09/16/2023 How often do you attend meet ings of the clubs or organizations you belong to? 1 to 4 times per year 09/16/2023 Are you , , di vorced, , never , or living with a partner? 09/16/2023 AUDIT-C Answer Date Recorded Q1: How often do you have a drink containing alcohol? Never 09/16/2023 Q2: How many drinks containi ng alcohol do you have on a typical day when you are drinking? Patient does not drink Q3: How often do you have si x or more drinks on one occasion? Never 09/16/2023 Overall Financial Resource Strain (CARDIA) Answe r Date Recorded How hard is it for you to pa y for the very basics like food, housing, medical care, and heating? Somewhat hard 09/16/2023 PHQ-2 Answer Date Recorded Total Score - Questions 1-9 0 10/27 [facility]ational Stress Questionnaire Answer Date Recorded Do you feel stress - tense, restless, nervous, or anxious, or unable to sleep at night because your mind is troubled all the time - these days? Not at all 09/16/2023 Exercise Vital Sign Answer Date Recorde d On average, how many days pe r week do you engage in moderate to strenuous exercise (like a brisk walk)? 3 days 09/16/2023 On average, how many minutes do you engage in exercise at this level? 20 min 09/16/2023 Hunger Vital Sign Answer Date Recorded Within the past 12 months, y ou worried that your food would run out before you got the money to buy more. Never true 11/03/19 24 Within the past 12 months, t he food you bought just didn't last and you didn't have money to get more. Never true 11/03/2023 PRAPARE - Transportation Answer Date Re corded In the past 12 months, has l ack of transportation kept you from medical appointments or from getting medications? No 11/2023 In the past 12 months, has l ack of transportation kept you from meetings, work, or from getting things needed for daily living? No 11/03/2023 Housing Stability Vital Sign Answer Gene e Recorded In the last 12 months, was t here a time when you were not able to pay the mortgage or rent on time? No 09/16/2023 In the last 12 months, how many places have you lived? 1 09/16/2023 In the last 12 months, was t here a time when you did not have a steady place to sleep or slept in a jail (including now)? No 09/16/2023 Housing Stability Vital Sign Answer Gene e Recorded In the last 12 months, was t here a time when you were not able to pay the mortgage or rent on time? No 11/03/2023 In the past 12 months, how m any times have you moved where you were living? 1 11/03/2023 At any time in the past 12 m [facility], were you homeless or living in a jail (including now)? No 11/03/2023 Education Answer Date Recorded What is the [...] on file Sexual Orientation Not on file Last Filed Vital Signs Vital Sign Reading Time Taken Comments Blood Pressure 116/60 04/26/2024 8:32 AM LEAD MECHANIC Pulse 60 04/26/2024 8:32 AM LEAD MECHANIC Temperature 36.4 C (97.6 F) 04/26/2024 8:32 AM LEAD MECHANIC Respiratory Rate 14 04/26/2024 8:32 AM LEAD MECHANIC Oxygen Saturation 98% 04/26/2024 8:32 AM LEAD MECHANIC Inhaled Oxygen Concentration - - Weight 73.5 kg (162 lb 1.6 oz) 04/26/2024 8:32 A M LEAD MECHANIC Height 162.6 cm (5' 4 ) 04/26/2024 8:32 AM LEAD MECHANIC Body Mass Index 27.82 04/26/2024 8:32 AM LEAD MECHANIC Plan of Treatment Upcoming Encounters Date Type Department Care Team (Late st Contact Info) Description 06/17/2024 8:40 AM LEAD MECHANIC Lab [facility] - Internal Medicine - [place] [address] [place] [phone] Jaret Lance [facility] 06/24/2024 8:15 AM LEAD MECHANIC Office Visit [facility] Internal Medicine [facility] [address] [place] [address] David Han MD [address] [place] [address] 09/13/2024 1:00 PM CDT Office Visit [facility] - Cardiology - [place] [address] [place] [address] Suly Prabhakar APRN, BOOK SORTER [address] [facility] [address] [place] [address] 10/25/2024 8:00 AM CDT Office Visit [facility] - Pulmonology & Sleep Medicine - [place] [address] [place] [address] Marisela Hi, ORA, BOOK SORTER [address] [facility] [address] [place] [address] Health Maintenance Due Date Last Done Comments Hepatitis C Virus (HCV) Screening 1955 TdaP Immunization 1955 Immunochemical Fecal Occult Blood 2006 Zoster Immunization (2 of 2) 01/27/202310/2022, 12/02/2022, 05/19/2020 SARS-COV-2 Immunization ( season) 2024 12/31/2023, 07/09/2023, 07/09/2023, Additional history exists DEXA Bone Density 10/22/2024 10/22/2022 Mammogram 10/22/2024 10/22/2022, 08/03/2020 Cologuard 12/12/2024 12/12/2021 Colonoscopy 05/15/2025 05/15/2022 Colorectal Cancer Screening 05/15/2025 05/15/2022 Respiratory Syncytial Virus (RSV) Immunization (Adult) Completed 04/08/2023 Influenza Immunization Completed , 12/27/2022, 12/27/2022, Additional history exists Pneumococcal Immunization (50+ years) Completed 12/31/2023, 08/09/2021 Pneumococcal Immunization Combined Discontinued 12/31/2023, 08/09/2021 Hepatitis B Immunization Aged Out No longer eligible based on patient's age to complete this topic Meningococcal Immunization (ACWY) Aged Out No longer eligible based on patient's age to complete this topic Rotavirus Immunization Aged Out No lo nger eligible based on patient's age to complete this topic Interventions Community Resource Recommendations Community Resource Services Recommended Domains Addressed Status Status Reason/Outcome Date/Time [facility] Emergency Food Food Insecurity Recommended 03/11/2024 10:13 PM LEAD MECHANIC [facility] Food Insecurity Recommended 03/11/2024 10:13 PM LEAD MECHANIC [facility] Financial Resource Needs Financial Resource Strain Recommended 03/11/2024 10:13 PM LEAD MECHANIC [facility] Financial Resource Needs Financial Resource Strain Recommended 03/11/2024 10:13 PM LEAD MECHANIC [facility] Financial Resource Needs Financial Resource Strain Recommended 03/11/2024 10:13 PM LEAD MECHANIC from Last 12 Months Procedures Procedure Name Priority Date/Time Associated Diagnosis Comments HM DILATED EYE EXAM 05/12/2024 1 2:00 AM LEAD MECHANIC HEMOGLOBIN, A1C 05/12/2024 12:00 AM LEAD MECHANIC PAIN CONSULT 04/22/2024 12:00 AM LEAD MECHANIC EKG 12 LEAD Routine 03/23/2024 10:43 AM LEAD MECHANIC Atrial fibrillation, unspecified type (HCC) BOBBY BONE DENSITOMETRY AXIAL SKELETON Routine 10/22/2022 11:08 AM CDT Asymptomatic menopausal state [facility] SCREENING BILATERAL DIGITAL W CAD W ESME Routine 10/22/2022 10:45 AM CDT Breast cancer screening by mammogram COLOGUARD Routine 12/12/2021 5:45 AM CDT Screening for colorectal cancer from Last 3 Months or Most Recently Relevant to Health Maintenance Results * HEMOGLOBIN, A1C (05/12/2024 12:00 AM LEAD MECHANIC) HGB-A1C 4.2 SCAN 05/12/2024 us Provider Scan CHEMISTRY ORDERABLES Final Resul t Performing Organization Address [facility] de Phone Number SCAN * HM DILATED EYE EXAM (05/12/2024 12:00 AM LEAD MECHANIC) 05/12/2024 us Provider Scan PROCEDURE/MINOR SURGICAL ORDERAB LES Final Result Performing Organization Address [facility] de Phone Number SCAN * PAIN CONSULT (04/22/2024 12:00 AM LEAD MECHANIC) 04/22/2024 us Provider Scan GENERIC SCAN ORDERS CONSULT Vicky l Result Performing Organization Address [facility] Co de Phone Number SCAN * EKG 12 LEAD (03/23/2024 10:43 AM LEAD MECHANIC) Ventricular Rate 48 BPM EXTERNAL EKG Atrial Rate 48 BPM EXTERNAL EKG P-R Interval 162 ms EXTERNAL EKG QRS Duration 94 ms EXTERNAL EKG Q-T Duration 468 ms EXTERNAL EKG QTC CALCULATION 418 ms EXTERNAL EKG P [place] 12 degrees EXTERNAL EKG R [place] -40 degrees EXTERNAL EKG T [place] -24 degrees EXTERNAL EKG 03/23/2024 10:4 3 AM LEAD MECHANIC Impressions EXTERNAL EKG - 03/26/2024 6:45 PM LEAD MECHANIC Sinus bradycardia Left axis deviation Minimal voltage criteria for LVH, may be normal variant Septal infarct , age undetermined Abnormal ECG ~ Confirmed by Odessa Franklin ([id number]) on 03/26/2024 6:45:10 PM Narrative Procedure Note Odessa Franklin MD - 03/26/2024 IMPRESSION: Sinus bradycardia Left axis deviation Minimal voltage criteria for LVH, may be normal variant Septal infarct , age undetermined Abnormal ECG ~ Confirmed by Odessa Franklin ([id number]) on 03/26/2024 6:45:10 PM us Suly Prabhakar APRN, CNP IMG ECG ORDERABLES F inal Result EXTERNAL EKG * BOBBY BONE DENSITOMETRY AXIAL SKELETON (10/22/2022 11:08 AM CDT) Anatomical Region Laterality Modality BODY N/A Computed Radiogr aphy 10/23/2022 11:2 2 AM CDT Impressions 10/23/2022 11:25 AM CDT IMPRESSION: Osteoporosis. REFERENCE: Bone mineral density: Normal (T-score above or = -1.0) Low bone mass (T-score between -1.0 and -2.5) replaces the previously used term osteopenia Osteoporosis (T-score = or below -2.5) Medical evaluation for secondary causes of low bone mineral density may be appropriate. FRAX is a World Health Organization validated fracture risk assessment tool that calculates a person's 10 year probability of a major osteoporosis related fracture and hip fracture. According to the National Osteoporosis Foundation guidelines, postmenopausal women and men age 50 or older with low bone mass and a 10 year probability of a major osteoporosis related fracture = or greater than 20% or a 10 year probability of a hip fracture = or greater than 3% should be considered for treatment. For further information, including treatment recommendations, please refer to the 2019 ISCD Official Positions (http://www.iscd.org) and the NOF's Clinician's Guide to Prevention and Treatment of Osteoporosis (http://www.nof.org/professionals/clinical-guidelines) Narrative 10/23/2022 11:25 AM CDT EXAM DESCRIPTION: [facility] BONE DENSITOMETRY AXIAL SKELETON REASON FOR STUDY: 66 y/o year old F with given history of: Asymptomatic menopausal state Rivet Flunky/Model: Your Style Unzipped (S/N [id number]) CLINICAL INFORMATION: Current height: 65 inches Maximum height: 65.5 inches Weight: 188 pounds Risk factors: Postmenopausal, steroid use COMPARISON: None available FINDINGS: AP LUMBAR SPINE L1-L4: Total BMD is 0.877 g/cm2 T-score is -2.6 LEFT HIP: Total BMD is 0.640 g/cm2 T-score is -2.9 Femoral neck BMD is 0.595 g/cm2 T-score is -3.2 FRAX: FRAX not reported due to T-scores of hip, femoral neck and/or spine being at or below -2.5 (Osteoporosis). THIS IS AN ELECTRONICALLY VERIFIED FINAL REPORT 10/23/2022 11:22 AM - Electronically signed by Sukhjinder Allison M.D. MF: ERIN Report ID: [id number] Reading Location: [place] [address] Procedure Note Sukhjinder Allison MD - 10/23/2022 EXAM DESCRIPTION: [facility] BONE DENSITOMETRY AXIAL SKELETON REASON FOR STUDY: 66 y/o year old F with given history of: Asymptomatic menopausal state Rivet Flunky/Model: Your Style Unzipped (S/N [id number]) CLINICAL INFORMATION: Current height: 65 inches Maximum height: 65.5 inches Weight: 188 pounds Risk factors: Postmenopausal, steroid use COMPARISON: None available FINDINGS: AP LUMBAR SPINE L1-L4: Total BMD is 0.877 g/cm2 T-score is -2.6 LEFT HIP: Total BMD is 0.640 g/cm2 T-score is -2.9 Femoral neck BMD is 0.595 g/cm2 T-score is -3.2 FRAX: FRAX not reported due to T-scores of hip, femoral neck and/or spine being at or below -2.5 (Osteoporosis). THIS IS AN ELECTRONICALLY VERIFIED FINAL REPORT 10/23/2022 11:22 AM - Electronically signed by Sukhjinder Allison M.D. MF: ERIN Report ID: [id number] Reading Location: [id number] IMPRESSION: Osteoporosis. REFERENCE: Bone mineral density: Normal (T-score above or = -1.0) Low bone mass (T-score between -1.0 and -2.5) replaces the previously used term osteopenia Osteoporosis (T-score = or below -2.5) Medical evaluation for secondary causes of low bone mineral density may be appropriate. FRAX is a World Health Organization validated fracture risk assessment tool that calculates a person's 10 year probability of a major osteoporosis related fracture and hip fracture. According to the National Osteoporosis Foundation guidelines, postmenopausal women and men age 50 or older with low bone mass and a 10 year probability of a major osteoporosis related fracture = or greater than 20% or a 10 year probability of a hip fracture = or greater than 3% should be considered for treatment. For further information, including treatment recommendations, please refer to the 2019 ISCD Official Positions (http://www.iscd.org) and the NOF's Clinician's Guide to Prevention and Treatment of Osteoporosis (http://www.nof.org/professionals/clinical-guidelines) us David Han MD IMG DEXA ORDERABLES Final R esult * BOBBY SCREENING BILATERAL DIGITAL W CAD W ESME (10/22/2022 10:45 AM CDT) Anatomical Region Laterality Modality breast Bilateral Mammography 10/22/2022 10:1 8 AM CDT Narrative 10/23/2022 10:32 AM CDT - BOBBY SCREENING BILATERAL DIGITAL W CAD W ESME BILATERAL DIGITAL SCREENING MAMMOGRAM 3D/2D WITH CAD WITH MEDIOLATERAL OBLIQUE CRANIOCAUDAL: 10/22/2022 The study was acquired using digital technology and interpreted from soft copy. Current study was also evaluated with ICAD version 7.2. 2D digital mammographic views, as well as 3D digital tomosynthesis were performed in the CC and MLO projections. CLINICAL: Routine screening. Patient has no complaints. No personal history of cancer. No family history of breast cancer. COMPARISONS: Comparison is made to exam dated: 08/03/2020 [facility]. BREAST TISSUE:There are scattered fibroglandular densities in both breasts. FINDINGS: There are benign vascular calcifications in both breasts. No significant masses, calcifications, or other findings are seen in either breast. There has been no significant interval change. IMPRESSION: BI-RAD 2 BENIGN There is no mammographic evidence of malignancy. A 1 year screening mammogram is recommended. A letter will be sent to the patient with these results. The patient will be entered into a reminder system with a target due date of 1 year for her next screening exam. Electronically signed by: Deloris Killian M.D. /penrad:10/22/2022 19:42:16 County Agent(s): RT Kateryna(R)(M), [facility] letter sent: Normal Exam Reading location: [facility] BI-RADS: 2 Benign Procedure Note Deloris Killian MD - 10/23/2022 - BOBBY SCREENING BILATERAL DIGITAL W CAD W ESME BILATERAL DIGITAL SCREENING MAMMOGRAM 3D/2D WITH CAD WITH MEDIOLATERAL OBLIQUE CRANIOCAUDAL: 10/22/2022 The study was acquired using digital technology and interpreted from soft copy. Current study was also evaluated with ICAD version 7.2. 2D digital mammographic views, as well as 3D digital tomosynthesis were performed in the CC and MLO projections. CLINICAL: Routine screening. Patient has no complaints. No personal history of cancer. No family history of breast cancer. COMPARISONS: Comparison is made to exam dated: 08/03/2020 [facility] [facility]. BREAST TISSUE:There are scattered fibroglandular densities in both breasts. FINDINGS: There are benign vascular calcifications in both breasts. No significant masses, calcifications, or other findings are seen in either breast. There has been no significant interval change. IMPRESSION: BI-RAD 2 BENIGN There is no mammographic evidence of malignancy. A 1 year screening mammogram is recommended. A letter will be sent to the patient with these results. The patient will be entered into a reminder system with a target due date of 1 year for her next screening exam. Electronically signed by: Deloris peres/penrad:10/22/2022 19:42:16 County Agent(s): Michelle Stuart RT(R)(M), [facility] letter sent: Normal Exam Reading location: [facility] BI-RADS: 2 Benign David Han MD IMG MAMMO ORDERABLES Final Result * (ABNORMAL) COLOGUARD (12/12/2021 5:45 AM CDT) Cologuard Positive( A) Negative [employer] Comment: POSITIVE TEST RESULT. A positive Cologuard result should be followed with a colonoscopy or visual examination of the colon. The normal value (reference range) for this assay is negative. TEST DESCRIPTION: Composite algorithmic analysis of stool DNA-biomarkers with hemoglobin immunoassay. Quantitative values of individual biomarkers are not reportable and are not associated with individual biomarker result reference ranges. Cologuard is intended for colorectal cancer screening of adults of either sex, 45 years or older, who are at average-risk for colorectal cancer (CRC). Cologuard has been approved for use by the U.S. FDA. The performance of Cologuard was established in a cross sectional study of average-risk adults aged 50-84. Cologuard performance in patients ages 45 to 49 years was estimated by sub-group analysis of near-age groups. Colonoscopies performed for a positive result may find as the most clinically significant lesion: colorectal cancer [4.0%], advanced adenoma (including sessile serrated polyps greater than or equal to 1cm diameter) [20%] or non- advanced adenoma [31%]; or no colorectal neoplasia [45%]. These estimates are derived from a prospective cross-sectional screening study of 10,000 individuals at average risk for colorectal cancer who were screened with both Cologuard and colonoscopy. (Hi Turner et al, N Engl J Med 2014;370(14):9924-7166.) Cologuard may produce a false negative or false positive result (no colorectal cancer or precancerous polyp present at colonoscopy follow up). A negative Cologuard test result does not guarantee the absence of CRC or advanced adenoma (pre-cancer). The current Cologuard screening interval is every 3 years. ([employer] and U.S. Multi-Society Task Force). Cologuard performance data in a 10,000 patient pivotal study using colonoscopy as the reference method can be accessed at the following location: www.[employer]/results. Additional description of the Cologuard test process, warnings and precautions can be found at www.cologuard.com. Stool 12/12/2021 5:45 AM CDT 12/13/2021 6:37 PM CDT David Han MD BODY FLUIDS & STOOLS ORDERA BLES Final Result [id number] [place] [address], [employer] [address] 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 PRE-ARREST: Use entire range of life support measures to stabilize the patient. Care Teams Supervisor Pipeline Maintenance Relationship Specialty Start Date End Date David Han MD [address] [place] [address] PCP - General Internal Medicine 01/14/20 Solomon Meyers MD PhD [address] [place] [address] Office Workforce Planner Interventional Cardiology 12/02/23 Marisela Hi APRN, BOOK SORTER [address] [facility] [address] [place] [address] Nurse Practitioner Advanced Practice Nurse 01/19/24 Suly Prabhakar APRN, BOOK SORTER [address] [facility], [address] [place] [address] Nurse Practitioner Cardiology 03/24/24
--- OUTSIDE RECORDS SUMMARY | 2024-06-13 10:51 | XMS_ITS | Clinical Summary ---
Author Organization [facility] Address [address] [place] [address] Care Team Providers Care Surveillance Investigator Name Role Phone David Han MD Primary Care Provider [phone] Source Comments [facility],non-owned Affiliates and Associated Physician Practices is amultiple site organization consisting of ambulatory clinics and hospital sitesin [place], [place], [place] and [place]. This disclosure is being madepursuant to the Care Everywhere program and may not contain all information available regarding this patient. Last updated 18.[facility] Allergies No known active allergies Medications * Be aware that medications may not be up to date on this document. Alwaysverify current medications with the patient. Medication Sig Dispensed Refills Start Date End Date Status Calcium-Vitamin D (CALCIUM + D PO) Take 1 tablet by mouth once daily Active vitamin E (TOCOPHERYL) 400 UNIT tablet Active [place]-3 Fatty Acids (FISH OIL PO) Take 1 capsule by mouth once daily Active Ascorbic Acid (EQL VITAMIN C) 1000 MG TABS Active Ferrous Sulfate (IRON) 325 (65 FE) MG TABS Take 1 (one) tablet by mouth daily with breakfast Active apixaban (Eliquis) 5 MG tablet Take 1 (one) tablet by mouth 2 times daily 09/17/2023 Active alendronate (Fosamax) 70 MG tablet Take 1 (one) tablet by mouth every 7 days 06/16/2023 Active furosemide (Lasix) 40 MG tablet Take 1 (one) tablet by mouth once daily 09/17/2023 Active omeprazole (PriLOSEC) 20 MG capsule Take 1 (one) capsule by mouth daily before breakfast 09/17/2023 Active topiramate (Topamax) 100 MG tablet Take 1 (one) tablet by mouth 2 times daily 09/17/2023 Active empagliflozin (Jardiance) 10 MG tabletIndications:H FrEF (heart failure with reduced ejection fraction) (HCC) Take 1 (one) tablet by mouth once daily 90 tablet 3 11/13/2023 Active multiple vitamins with minerals tablet Take 1 (one) tablet by mouth once daily Active Multiple Vitamins-Minerals (PreserVision/Lutei n) Take 1 (one) capsule by mouth once daily Active HYDROcodone-acetami nophen (Ingalls) 7.5-325 MG tablet 10/31/2023 Active pregabalin (Lyrica) 100 MG capsule Take 1 (one) capsule by mouth 2 times daily 09/17/2023 Active cyanocobalamin (Vitamin B-12) 1000 MCG tablet Take 1 (one) tablet by mouth once daily Active Fe-Succ Ac-B Nxidm-O-Pb-FA (Irospan 19/10) Take by mouth Active spironolactone (Aldactone) 25 MG tablet Take 0.5 (one-half) tablet by mouth once daily 90 tablet 1 11/21/2023 Active lisinopril (Prinivil; Zestril) 5 MG tabletIndications:H FrEF (heart failure with reduced ejection fraction) (HCC) Take 1 (one) tablet by mouth once daily 90 tablet 3 12/15/2023 Active amiodarone (Cordarone) 200 MG tabletIndications:A trial Fibrillation Take 0.5 (one-half) tablet by mouth once daily Reasons: Atrial Fibrillation 01/08/2024 Active Active Problems Problem Noted Date Diagnosed Date HFrEF (heart failure with reduced ejection fract ion) 11/05/2023 GERD (gastroesophageal reflux disease) 4 Atrial fibrillation 11/05/2023 HTN (hypertension) 11/05/2023 Migraines 11/05/2023 Age-related osteoporosis wit hout current pathological fracture 11/05/2023 Cardiogenic shock 11/04/2023 Degeneration of lumbar or lumbosacral interverte bral disc 04/04/2010 Immunizations Name Administration Dates Next Due COVID MODERNA BIVALENT 12Y+ 50MCG/0.5ML 01/24/20 23 COVID PFIZER BIVALENT 12Y+ 30mcg/0.3ML 3 FLU VACCINE TRI IIV3 SPLIT IM (FLUVIRIN) 017 INFLUENZA VACCINE 12/27/2022 INFLUENZA VACCINE, CELL CULT URE, QUADR. (FLUCELVAX QUADRIVALENT; 6MO+), 0.5 ML (CCIIV4) 03/09/2019 INFLUENZA VACCINE, HIGH-DOSE , QUADR. (FLUZONE HIGH-DOSE QUADRIVALENT; 65Y+), 0.7 ML (HD-IIV4) 12/27/2022 INFLUENZA VACCINE, QUADR. (A FLURIA, FLUZONE QUADRIVALENT; 6MO+) (IIV4) 04/16/2018 INFLUENZA VACCINE, QUADR. (F LUZONE; FLULAVAL; FLUARIX; AFLURIA QUADRIVALENT; 6MO+), 0.5 ML (IIV4) 02/18/2022,02/01/2021,01/20/2020 MMR VACCINE 09/01/2023,08/04/2023 PNEUMOCOCCAL PPV VACCINE 08/09/2021 RSV AREXVY 60YR+ 0.5ML 04/08/2023 Zoster Hzv Vacc Recombinant Inj Im 12/02/2022, Family History Medical History Relation Name Comments Cancer Father Diabetes Mother Hypercholesterolemia Mother Relation Name Status Comments Father Mother Alive Social History Tobacco Use Types Packs/Day Years Used Date Smoking Tobacco: Never Smokeless Tobacco: Never Alcohol Use Standard Drinks/Week Comments No 0 (1 standard drink = 0.6 oz pur e alcohol) Sex and Gender Information Value Date Recorded Sex Assigned at Not on file Gender Identity Not on file Sexual Orientation Not on file Last Filed Vital Signs Vital Sign Reading Time Taken Comments Blood Pressure 121/71 11/21/2023 2:36 PM CDT Pulse 61 11/21/2023 2:36 PM CDT Temperature 37.2 C (98.9 F) 11/13/2023 2:17 PM CDT Respiratory Rate 18 11/13/2023 2:17 PM CDT Oxygen Saturation 95% 11/21/2023 2:36 PM CDT Inhaled Oxygen Concentration - - Weight 72.6 kg (160 lb) 11/21/2023 2:36 PM CDT Height 162.6 cm (5' 4 ) 11/21/2023 2:36 PM CDT Body Mass Index 27.46 11/21/2023 2:36 PM CDT Plan of Treatment Health Maintenance Due Date Last Done Comments COLOGUARD (AGES 45-75) - COLON CA SCREENING 1956 COLON MONITORING 1956 COLONOSCOPY - COLON CA SCREENING 1956 CT COLONOGRAPHY - COLON CA SCREENING 1955 Colorectal Cancer Screening 1956 FIT - COLON CA SCREENING 1956 FLEX SIG - COLON CA SCREENING 1956 LIPID TESTING 1956 HEPATITIS C SCREENING 11/19/1974 DTAP/TDAP/TD VACCINES (1 - Tdap) 11/24/1975 PNEUMOCOCCAL VACCINE 50+ (2 of 2 - PCV) 08/09/2022 08/09/2021 COVID-19 VACCINE ( season) 2024 12/31/2023, 07/09/2023, 01/23/2023, Additional history exists DEPRESSION SCREENING 04/28/2024 MEDICARE AWV CALENDAR YEAR 2024 MAMMOGRAM 10/22/2024 10/22/2022, 09/27, 08/03/2020 SCREENING FOR DIABETES 12/25/2026 , 12/09/2023, 11/08/2023, Additional history exists BONE DENSITY TESTING Completed 10/22/2022 ZOSTER VACCINE Completed 12/02/2022, 05/19/2020 Respiratory Syncytial Virus (RSV) Vaccine Pt: or over 60 yrs Completed 04/08/2023 INFLUENZA VACCINE Completed 12/31/2023, , 12/27/2022, Additional history exists HEPATITIS B VACCINE Aged Out No longe r eligible based on patient's age to complete this topic HIB VACCINE Aged Out No longer eligi ble based on patient's age to complete this topic HPV VACCINE Aged Out No longer eligi ble based on patient's age to complete this topic MENINGOCOCCAL (Group B) VACCINE Aged Out No longer eligible based on patient's age to complete this topic MENINGOCOCCAL VACCINE Aged Out No danyell gianluca eligible based on patient's age to complete this topic Procedures Procedure Name Priority Date/Time Associated Diagnosis Comments BASIC METABOLIC PANEL (CALCIUM TOTAL) Routine 12/26/2023 7:22 AM CDT HFrEF (heart failure with reduced ejection fraction) ([facility]) from Last 3 Months or Most Recently Relevant to Health Maintenance Results * (ABNORMAL) BASIC METABOLIC PANEL (CALCIUM TOTAL) (12/26/2023 7:22 AM CDT) Glucose 98 65 - 99 mg/dL [facility] Comment: Fasting reference interval BUN 25 7 - 25 mg/dL [facility] Creatinine 1.06(H) 0.50 - 1.05 mg/dL [facility] eGFR by Cystatin C 58(L) > OR = 60 mL/min/1.7 3m2 [facility] BUN/Creatinine Ratio 24(H) 6 - 22 (calc) [facility] Sodium 142 135 - 146 mmol/L [facility] Potassium 4.6 3.5 - 5.3 mmol/L [facility] Chloride 108 98 - 110 mmol/L [facility] CO2 29 20 - 32 mmol/L [facility] Calcium 9.1 8.6 - 10.4 mg/dL [facility] Comment: REPORT COMMENT: FASTING:YES Test Performed at: [facility] [id number] [place] [address] JULIAN MARC MD Blood BLOOD SPECIMEN / Unknown 12/26/2023 7:22 AM CDT 12/26/2023 7:22 AM CDT Deja Meehan C.O.D. [facility] - CHEMISTR Y ORDERABLES [facility] [id number] [place] [address] from Last 3 Months or Most Recently Relevant to Health Maintenance Advance Directives * Full Code (Latest Code Status on File) Date Activated Date Inactivated Comments 11/05/2023 12:20 AM 11/08/2023 12:28 PM Healthcare Agents on File Name Relationship Healthcare Agent [facility] Communication Radha Mccormick Daughter Power of Learning Services Coordinator (POA) Care Teams Surveillance Investigator Relationship Specialty Start Date End Date David Han MD [address] [place] [address] PCP - General Internal Medicine 11/07/23
--- OUTSIDE RECORDS SUMMARY | 2024-06-13 10:51 | XMS_ITS | Patient Health Summary ---
Author Organization [facility] Address [address] [place] [address] Care Team Providers Care Financial Analyst Accountant Name Role Phone David Han MD Primary Care Provider [phone] Note from [facility],non-owned Affiliates and Associated Physician Practices is amultiple site organization consisting of ambulatory clinics and hospital sitesin [place], [place], [place] and [place]. This disclosure is being madepursuant to the Care Everywhere program and may not contain all information available regarding this patient. Last updated 18.[facility] Allergies No known active allergies Medications * Be aware that medications may not be up to date on this document. Alwaysverify current medications with the patient. * Calcium-Vitamin D (CALCIUM + D PO) Take 1 tablet by mouth once daily * vitamin E (TOCOPHERYL) 400 UNIT tablet * [place]-3 Fatty Acids (FISH OIL PO) Take 1 capsule by mouth once daily * Ascorbic Acid (EQL VITAMIN C) 1000 MG TABS * Ferrous Sulfate (IRON) 325 (65 FE) MG TABS Take 1 (one) tablet by mouth daily with breakfast * apixaban (Eliquis) 5 MG tablet(Started 09/17/2023) Take 1 (one) tablet by mouth 2 times daily * alendronate (Fosamax) 70 MG tablet(Started 06/16/2023) Take 1 (one) tablet by mouth every 7 days * furosemide (Lasix) 40 MG tablet(Started 09/17/2023) Take 1 (one) tablet by mouth once daily * omeprazole (PriLOSEC) 20 MG capsule(Started 09/17/2023) Take 1 (one) capsule by mouth daily before breakfast * topiramate (Topamax) 100 MG tablet(Started 09/17/2023) Take 1 (one) tablet by mouth 2 times daily * empagliflozin (Jardiance) 10 MG tablet(Started 11/13/2023) Take 1 (one) tablet by mouth once daily 3 refills by 11/12/2024 * multiple vitamins with minerals tablet Take 1 (one) tablet by mouth once daily * Multiple Vitamins-Minerals (PreserVision/Lutein) Take 1 (one) capsule by mouth once daily * HYDROcodone-acetaminophen ([place]) 7.5-325 MG tablet(Started 10/31/2023) * pregabalin (Lyrica) 100 MG capsule(Started 09/17/2023) Take 1 (one) capsule by mouth 2 times daily * cyanocobalamin (Vitamin B-12) 1000 MCG tablet Take 1 (one) tablet by mouth once daily * Fe-Succ Ac-B Dtyjb-B-Ay-FA (Irospan 19/10) Take by mouth * spironolactone (Aldactone) 25 MG tablet(Started 11/21/2023) Take 0.5 (one-half) tablet by mouth once daily 1 refill by 11/20/2024 * lisinopril (Prinivil; Zestril) 5 MG tablet(Started 12/15/2023) Take 1 (one) tablet by mouth once daily 3 refills by 12/14/2024 * amiodarone (Cordarone) 200 MG tablet(Started 01/08/2024) Take 0.5 (one-half) tablet by mouth once daily Reasons: Atrial Fibrillation Active Problems Problem Noted Date Diagnosed Date HFrEF (heart failure with reduced ejection fract ion) 11/05/2023 GERD (gastroesophageal reflux disease) Atrial fibrillation 11/05/2023 HTN (hypertension) 11/05/2023 Migraines 11/05/2023 Age-related osteoporosis wit hout current pathological fracture 11/05/2023 Cardiogenic shock 11/04/2023 Degeneration of lumbar or lumbosacral interverte bral disc 04/04/2010 Immunizations * COVID MODERNA BIVALENT 12Y+ 50MCG/0.5ML(Given 01/23/2023) * COVID PFIZER BIVALENT 12Y+ 30mcg/0.3ML(Given 01/23/2023) * FLU VACCINE TRI IIV3 SPLIT IM (FLUVIRIN)(Given 03/13/2017) * INFLUENZA VACCINE(Given 12/27/2022) * INFLUENZA VACCINE, CELL CULTURE, QUADR. (FLUCELVAX QUADRIVALENT; 6MO+), 0.5 ML (CCIIV4)(Given 03/09/2019) * INFLUENZA VACCINE, HIGH-DOSE, QUADR. (FLUZONE HIGH-DOSE QUADRIVALENT; 65Y+), 0.7 ML (HD-IIV4)(Given 12/27/2022) * INFLUENZA VACCINE, QUADR. (AFLURIA, FLUZONE QUADRIVALENT; 6MO+) (IIV4)(Given 04/16/2018) * INFLUENZA VACCINE, QUADR. (FLUZONE; FLULAVAL; FLUARIX; AFLURIA QUADRIVALENT; 6MO+), 0.5 ML (IIV4)(Given 02/18/2022, 02/01/2021, 01/20/2020) * MMR VACCINE(Given 09/01/2023, 08/04/2023) * PNEUMOCOCCAL PPV VACCINE(Given 08/09/2021) * RSV AREXVY 60YR+ 0.5ML(Given 04/08/2023) * Zoster Hzv Vacc Recombinant Inj Im(Given 12/02/2022, 05/19/2020) Social History Tobacco Use Types Packs/Day Years [...] Mass Index 27.46 11/21/2023 2:36 PM CDT Procedures * REF LAB-REQUEST PROBLEM(Performed 12/26/2023) * BASIC METABOLIC PANEL (CALCIUM TOTAL)(Performed 12/26/2023) Performed for HFrEF (heart failure with reduced ejection fraction) ([facility]LY [facility]) * BASIC METABOLIC PANEL (CALCIUM TOTAL)(Performed 12/09/2023) Performed for HFrEF (heart failure with reduced ejection fraction) ([facility]) * EKG 12-LEAD(Performed 11/21/2023) Performed for HFrEF (heart failure with reduced ejection fraction) ([facility]) * B-TYPE NATRIURETIC PEPTIDE(Performed 11/08/2023) * BASIC METABOLIC PANEL (CALCIUM TOTAL)(Performed 11/08/2023) * CBC W AUTO DIFFERENTIAL(Performed 11/08/2023) * MAGNESIUM BLOOD(Performed 11/08/2023) * PHOSPHORUS BLOOD(Performed 11/08/2023) * EP CARDIOVERSION(Performed 11/07/2023) Performed for Longstanding persistent atrial fibrillation ([facility]) * EKG 12-LEAD(Performed 11/07/2023) Performed for Persistent atrial fibrillation ([facility]) * XR CHEST 2VW(Performed 11/07/2023) Performed for HFrEF (heart failure with reduced ejection fraction) ([facility]) * BASIC METABOLIC PANEL (CALCIUM TOTAL)(Performed 11/07/2023) * CBC W AUTO DIFFERENTIAL(Performed 11/07/2023) * MAGNESIUM BLOOD(Performed 11/07/2023) * PHOSPHORUS BLOOD(Performed 11/07/2023) * LACTIC ACID BLOOD(Performed 11/06/2023) * CBC W AUTO DIFFERENTIAL(Performed 11/06/2023) * COMPREHENSIVE METABOLIC PANEL(Performed 11/06/2023) * MAGNESIUM BLOOD(Performed 11/06/2023) * PHOSPHORUS BLOOD(Performed 11/06/2023) * LACTIC ACID BLOOD(Performed 11/05/2023) * LACTIC ACID BLOOD(Performed 11/05/2023) * ECHO COMPLETE W CONTRAST(Performed 11/05/2023) Performed for Cardiogenic shock ([facility]) * LACTIC ACID BLOOD(Performed 11/05/2023) * SVO2 FOR RECALIBRATION(Performed 11/05/2023) * CBC W AUTO DIFFERENTIAL(Performed 11/05/2023) * COMPREHENSIVE METABOLIC PANEL(Performed 11/05/2023) * MAGNESIUM BLOOD(Performed 11/05/2023) * PHOSPHORUS BLOOD(Performed 11/05/2023) * BLOOD GASES ART + COOX PANEL(Performed 11/05/2023) * XR CHEST 1VW PORTABLE(Performed 11/05/2023) Performed for Cardiogenic shock (HCC) * BLOOD GASES MIGUEL ANGEL + COOX PANEL(Performed 11/05/2023) * COMPREHENSIVE METABOLIC PANEL(Performed 11/05/2023) * CBC W AUTO DIFFERENTIAL(Performed 11/05/2023) * PTT [facility](Performed 11/05/2023) * PT-INR [facility](Performed 11/05/2023) * PHOSPHORUS BLOOD(Performed 11/05/2023) * MAGNESIUM BLOOD(Performed 11/05/2023) * LACTIC ACID BLOOD(Performed 11/05/2023) * B-TYPE NATRIURETIC PEPTIDE(Performed 11/05/2023) * CARDIAC ECHOCARDIOGRAM COMPLETE ORDER(Performed 02/28/2010) * MRI LUMBAR SPINE WO CONTRAST(Performed 02/28/2010) Results * REF LAB-REQUEST PROBLEM (12/26/2023 7:22 AM CDT) [facility] Specimen Integrity Compromised See Below [facility] Comment: Whole blood, unspun or partially spun gel barrier tube was received more than 6 hours since collection. A false elevation of K, Phos and LD as well as a false decrease in glucose may occur due to prolonged contact with red cells. Test Performed at: [facility] [id number] [place] [id number] JULIAN MARC MD 12/26/2023 7:22 AM CDT 12/26/2023 7:22 AM CDT Deja Meehan CONSERVATION SPECIALIST-REFRESH TECHNICIAN LAB - CHEMISTR Y ORDERABLES [facility] [address] [place] [address] * (ABNORMAL) BASIC METABOLIC PANEL (CALCIUM TOTAL) (12/26/2023 7:22 AM CDT) Only the most recent of4 resultswithin the time period is included. [facility] Glucose 98 65 - 99 mg/dL [facility] [...] Comment: REPORT COMMENT: FASTING:YES Test Performed at: [facility] [address] [facility] [place] [id number] JULIAN MARC MD Blood BLOOD SPECIMEN / Unknown 12/26/2023 7:22 AM CDT 12/26/2023 7:22 AM CDT Deja Meehan CONSERVATION SPECIALIST-REFRESH TECHNICIAN LAB - CHEMISTR Y ORDERABLES [facility] [address] [place] [address] * EKG 12-LEAD (11/21/2023 3:52 PM CDT) Only the most recent of2 resultswithin the time period is included. Ventricular Rate 61 BPM [facility] Atrial Rate 61 BPM [facility] P-R Interval 192 ms [facility] QRS Duration ms 100 ms [facility] Q-T Interval ms 434 ms [facility] QTC Calculation (Bezet) 436 ms [facility] Calculated P [place] 42 degrees [facility] Calculated R [place] -26 degrees [facility] Calculated T [place] 150 degrees [facility] Interpretation EKG NORMAL SINUS RHYTHM LEFT VENTRICULAR HYPERTROPHY WITH REPOLARIZATION ABNORMALITY ( Iain product ) CANNOT RULE OUT SEPTAL INFARCT , AGE UNDETERMINED ABNORMAL ECG WHEN COMPARED WITH ECG OF 07-NOV-2023 15:27, (UNCONFIRMED) MINIMAL CRITERIA FOR SEPTAL INFARCT ARE NOW PRESENT NONSPECIFIC T WAVE ABNORMALITY NO LONGER EVIDENT IN ANTERIOR LEADS Confirmed by SOLANGE WILEY [facility] ([id number]) on 11/26/2023 5:52:25 PM [facility] 11/21/2023 3:52 PM CDT 11/26/2023 5:52 PM CDT Deja Meehan CONSERVATION SPECIALIST-REFRESH TECHNICIAN ECG ORDERABLES [facility]ERRER[facility] * (ABNORMAL) CBC W AUTO DIFFERENTIAL (11/08/2023 3:54 AM CDT) Only the most recent of5 resultswithin the time period is included. WBC 4.1 4.0 - 10.7 x10E9/L 11/08/2023 4:20 AM [facility] RBC Count 3.98 3.90 - 5.20 x10E12/L 11/08/2023 4:20 AM [facility] Hemoglobin 12.0 11.9 - 15.8 g/dL 11/08/2023 4:20 AM [facility] Hematocrit 37.7 34.8 - 46.1 % 11/08/2023 4:20 AM [facility] MCV 94.7 80.0 - 98.0 fL 11/08/2023 4:20 AM [facility] MCH 30.2 26.7 - 33.6 pg 11/08/2023 4:20 AM [facility] MCHC 31.8 31.7 - 36.3 g/dL 11/08/2023 4:20 AM [facility] RDW-CV 13.3 11.3 - 14.8 % 11/08/2023 4:20 AM [facility] Platelet Count 140(L) 150 - 420 x10E9/L 11/08/2023 4:20 AM [facility] MPV 11.9(H) 7.8 - 11.4 fL 11/08/2023 4:20 AM [facility] Neutrophil % 64.4 41.0 - 74.0 % 11/08/2023 4:20 AM [facility] Lymphocyte % 26.2 17.0 - 47.0 % 11/08/2023 4:20 AM [facility] Monocyte % 5.3 3.0 - 11.0 % 11/08/2023 4:20 AM [facility] Eosinophil % 3.6 0.0 - 7.0 % 11/08/2023 4:20 AM [facility] Basophil % 0.5 0.0 - 1.6 % 11/08/2023 4:20 AM [facility] Immature Granulocytes % 0.0 0.0 - 1.0 % 11/08/2023 4:20 AM [facility] Neutrophil Absolute 2.65 1.60 - 7.50 x10E9/L 11/08/2023 4:20 AM [facility] Lymphocyte Absolute 1.08 1.00 - 4.40 x10E9/L 11/08/2023 4:20 AM [facility] Monocyte Absolute 0.22 0.15 - 1.00 x10E9/L 11/08/2023 4:20 AM [facility] Eosinophil Absolute 0.15 0.00 - 0.60 x10E9/L 11/08/2023 4:20 AM [facility] Basophil Absolute 0.02 0.00 - 0.13 x10E9/L 11/08/2023 4:20 AM [facility] Blood BLOOD SPECIMEN / Unknown Venipuncture / Unknown 11/08/2023 3:54 AM CDT 11/08/2023 4:09 AM CDT Solomon Meyers MD LAB - HEMATOLOGY ORD ERABLES [facility] [address] [place] [address], [facility] [phone] * (ABNORMAL) B-TYPE NATRIURETIC PEPTIDE (11/08/2023 3:54 AM CDT) Only the most recent of2 resultswithin the time period is included. BNP 780(H) <100 pg/mL 11/08/2023 4:44 AM [facility] Comment: A decision threshold of 100 pg/mL has been demonstrated to provide the maximal combination of sensitivity, specificity and predictive value for the diagnosis of congestive heart failure (CHF). Virtually all patients with no evidence of CHF have BNP values less than 100 pg/mL. A BNP value greater than 100 pg/mL is consistent with the diagnosis of CHF in the appropriate clinical setting. In a study of 693 patients (male and female) with diagnosed CHF, the following values were determined based on the NYHA functional classification system: NYHA Functional Class Mean Valule (pg/mL) % >100 pg/mL I 320 58.1 II 432 73.0 III 656 79.0 IV 1635 98.3 Blood BLOOD SPECIMEN / Unknown Venipuncture / Unknown 11/08/2023 3:54 AM CDT 11/08/2023 4:09 AM CDT Sonido Solitario MD LAB - CHEMISTRY ORDSvetlana LEUNG Performing Organization Address [facility] Co de Phone Number [address] [address], [facility] [phone] * PHOSPHORUS BLOOD (11/08/2023 3:54 AM CDT) Only the most recent of5 resultswithin the time period is included. Phosphorus 4.0 2.9 - 5.1 mg/dL 11/08/2023 4:39 AM CDT [facility] Blood BLOOD SPECIMEN / Unknown Venipuncture / Unknown 11/08/2023 3:54 AM CDT 11/08/2023 4:09 AM CDT Solomon Meyers MD LAB - CHEMISTRY FABRICIO LEUNG Performing Organization Address [facility] Co de Phone Number [address] [address], [facility] [phone] * MAGNESIUM BLOOD (11/08/2023 3:54 AM CDT) Only the most recent of5 resultswithin the time period is included. Magnesium 2.4 1.6 - 2.6 mg/dL 11/08/2023 4:39 AM CDT [facility] Blood BLOOD SPECIMEN / Unknown Venipuncture / Unknown 11/08/2023 3:54 AM CDT 11/08/2023 4:09 AM CDT Solomon Meyers MD LAB - CHEMISTRY FABRICIO LEUNG [facility] [address] [place] [address], [facility] [phone] * EP CARDIOVERSION (11/07/2023 12:34 PM CDT) Anatomical Region Laterality Modality Chest X-Ray Angiograph y Narrative 11/07/2023 12:34 PM CDT Lukas Frazier MD 11/07/2023 12:43 PM Electrical Cardioversion (DCCV) Procedure Report 11/07/2023 Procedure Perfomed: Elective Cardioversion Indication: Janneth Cummins is a 67 year old year old female who is in atrial fibrillation with RVR. The patient has been offered elective cardioversion and presents today to undergo this procedure. The patient has been on uninterrepted anticoagulation with therapeutic levels for over one month. 911 Emergency Services Dispatcher: Sonido Solitario MD and Lukas Frazier MD Medications: The patient received 4 mg of Versed and 100 mcg of Fentanyl in divided doses for conscious sedation during the procedure. Description of Procedure: The risks and benefits of the procedure were discussed with the patient and the patient consented for the procedure. Upon confirmation of therapeutic INR value defibrillator pads were placed on thepatient in an anterior/postrerior configuration for conversion of atrial fibrillation. After adequate sedation was achieved, cardioversion was attempted with a synchronized 200 joule biphasic shock. The patient was successfully converted to normal sinus rhythm but then reverted back into afib with RVR. A second synchronized shock of 200J was delivered with successful conversion to sinus rhythm. An ECG was performed which confirmed sinus rhythm. The patient tolerated the procedure well; there were no apparent complications at the conclusion of the procedure. Successful elective cardioversion from atrial fibrillation with RVR to sinus rhythm. Complications: None Estimated blood loss: None Lukas Frazier MD Cardiovascular Diseases Fellow PGY-5 [facility] Sonido Solitario MD ELECTROPHYS RADIANT * XR CHEST 2VW (11/07/2023 11:37 AM CDT) Anatomical Region Laterality Modality Chest Radiographic Florecita ging 11/07/2023 3:48 PM CDT Impressions 11/07/2023 3:49 PM CDT IMPRESSION: Stable cardiomegaly. Similar small to moderate left pleural effusion with associated retrocardiac atelectasis/airspace disease. The right lung is clear. No pneumothorax. > Interpreting Provider: Johnathon Kimball MD on 11/07/2023 3:49 PM Narrative 11/07/2023 3:49 PM CDT PROCEDURE: XR CHEST 2VW DATE/TIME OF EXAM: 11/07/2023 11:38 AM CLINICAL INFORMATION: None relevant/not provided if blank. Indication: I50.20: HFrEF (heart failure with reduced ejection fraction) (HCC) Additional History: COMPARISON: 11/05/2023 Procedure Note Johnathon Kimball MD - 11/07/2023 PROCEDURE: XR CHEST 2VW DATE/TIME OF EXAM: 11/07/2023 11:38 AM CLINICAL INFORMATION: None relevant/not provided if blank. Indication: I50.20: HFrEF (heart failure with reduced ejection fraction) (HCC) Additional History: COMPARISON: 11/05/2023 IMPRESSION: Stable cardiomegaly. Similar small to moderate left pleural effusionwith associated retrocardiac atelectasis/airspace disease. The right lung is clear. No pneumothorax. > Interpreting Provider: Johnathon Kimball MD on 11/07/2023 3:49 PM Sonido Solitario MD DIAGNOSTIC IMAGING O RDERABLES * (ABNORMAL) COMPREHENSIVE METABOLIC PANEL (11/06/2023 3:47 AM CDT) Only the most recent of3 resultswithin the time period is included. BUN 17 7 - 26 mg/dL 11/06/2023 4:20 AM [facility] Creatinine 0.79 0.56 - 0.96 mg/dL 11/06/2023 4:20 AM T [facility] Sodium 142 136 - 145 mmol/L 11/06/2023 4:20 AM T [facility] Potassium 3.9 3.5 - 4.5 mmol/L 11/06/2023 4:20 AM CDT [facility] Chloride 108(H) 98 - 107 mmol/L 11/06/2023 4:20 AM [facility] CO2 27 22 - 29 mmol/L 11/06/2023 4:20 AM [facility] Glucose 114 70 - 115 mg/dL 11/06/2023 4:20 AM [facility] Calcium 8.6 8.4 - 10.2 mg/dL 11/06/2023 4:20 AM [facility] Protein Total 6.0 6.0 - 8.3 g/dL 11/06/2023 4:20 AM [facility] Albumin 3.2(L) 3.4 - 5.0 g/dL 11/06/2023 4:20 AM [facility] Bilirubin Total 0.3 0.2 - 1.2 mg/dL 11/06/2023 4:20 AM [facility] Alkaline Phosphatase 78 40 - 150 U/L 11/06/2023 4:20 AM [facility] ALT 19 5 - 55 U/L 11/06/2023 4:20 AM [facility] AST 15 5 - 34 U/L 11/06/2023 4:20 AM [facility] Anion Gap 7 6 - 16 11/06/2023 4:20 AM [facility] BUN/Creatinine Ratio 22 7 - 23 11/06/2023 4:20 AM [facility] Osmolality Calculated 296(H) 275 - 295 mOsm/kg 11/06/2023 4:20 AM [facility] Albumin/Globulin Ratio 1.1 1.1 - 2.3 11/06/2023 4:20 AM [facility] eGFR by CKD-EPI 82(L) >=90 mL/min/1.7 3 m2 11/06/2023 4:20 AM [facility] Blood BLOOD SPECIMEN / Unknown Venipuncture / Unknown 11/06/2023 3:47 AM CDT 11/06/2023 3:56 AM T Solomon Meyers MD LAB - CHEMISTRY FABRICIO LEUNG [facility] Organization Address City/State/ZIP Co de Phone Number [facility] [address] [place] [address], [place] [phone] * LACTIC ACID BLOOD (11/06/2023 3:47 AM CDT) Only the most recent of5 resultswithin the time period is included. Pathologist [facility] Lactic Acid-Stat 0.7 <=2.0 mmol/L 11/06/2023 4:16 AM CDT [facility] Blood BLOOD SPECIMEN / Unknown Venipuncture / Unknown 11/06/2023 3:47 AM CDT 11/06/2023 3:54 AM CDT Solomon Meyers MD LAB - CHEMISTRY FABRICIO [facility] [place] [address] [place] [address], [place] [phone] * ECHO COMPLETE W CONTRAST (11/05/2023 3:15 PM CDT) Pathologist [facility] vol index 0.06 l/m SSM CV FUJI PACS IVSd 2D 0.929 cm SSM CV FUJ I PACS IVSd 2D 0.977 cm SSM CV FUJ I PACS IVSd 2D 0.882 cm SSM CV FUJ I PACS LVIDd 5.826 cm SSM CV FUJ I PACS LVIDd 5.973 cm SSM CV FUJ I PACS LVIDd 5.679 cm SSM CV FUJ I PACS LVIDs 5.413 cm SSM CV FUJ I PACS LVIDs 5.525 cm SSM CV FUJ I PACS LVIDs 5.301 cm SSM CV FUJ I PACS LVOT diam 1.994 cm SSM CV FUJ I PACS LVOT diam 1.994 cm SSM CV FUJ I PACS LVPWd 0.944 cm SSM CV FUJ I PACS LVPWd 1.023 cm SSM CV FUJ I PACS LVPWd 0.865 cm SSM CV FUJ I PACS LV biplane EF 32.307 % SSM CV FUJI PACS LV biplane EF 32.307 % SSM CV FUJI PACS LV biplane EF 32.307 % SSM CV FUJI PACS LV A2C EF 36.615 % SSM CV [facility] I PACS LV A2C EF 36.615 % SSM CV [facility] I PACS LV A2C EF 36.615 % SSM CV [facility] I PACS LV A4C EF 22.141 % SSM CV [facility] I PACS LV A4C EF 22.141 % SSM CV [facility] I PACS LV A4C EF 22.141 % SSM CV [facility] I PACS LV EDV A2C 214.293 ml SSM CV FU JI PACS LV EDV A2C 214.293 ml SSM CV FU JI PACS LV EDV A4C 126.612 ml SSM CV FU JI PACS LV EDV A4C 126.612 ml SSM CV FU JI PACS LV ESV A2C 135.831 ml SSM CV FU JI PACS LV ESV A2C 135.831 ml SSM CV FU JI PACS LV ESV A4C 98.58 ml SSM CV FU JI PACS LV ESV A4C 98.58 ml SSM CV FU PACS LVOT pk willem 91.025 cm/s SSM CV F [facility] PACS LVOT pk willem 78.87 cm/s SSM CV F [facility] PACS LVOT pk willem 90.107 cm/s SSM CV F [facility] PACS LVOT pk willem 81.045 cm/s SSM CV F [facility] PACS LVOT pk willem 104.244 cm/s SSM CV F [facility] PACS LVOT pk willem 86.405 cm/s SSM CV F [facility] PACS LVOT pk willem 105.482 cm/s SSM CV F [facility] PACS LVOT VTI 13.918 cm SSM CV [facility] I PACS LVOT VTI 12.467 cm SSM CV [facility] I PACS LVOT VTI 13.133 cm SSM CV [facility] I PACS LVOT VTI 12.03 cm SSM CV [facility] I PACS LVOT VTI 17.394 cm SSM CV [facility] I PACS LVOT VTI 10.971 cm SSM CV [facility] I PACS LVOT VTI 17.514 cm SSM CV [facility] I PACS RV-whitehead basal diam 4.097 cm SSM CV [facility] PACS RV-whitehead basal diam 4.097 cm SSM CV FUJI PACS RVIDd 3.978 cm SSM CV FUJ I PACS RVIDd 3.978 cm SSM CV FUJ I PACS RVOT diam Doppler 2.002 cm SSM CV FUJI PACS RVOT diam Doppler 2.002 cm SSM CV FUJI PACS RVOT pk willem 60.078 cm/s SSM CV F UJI PACS RVOT pk willem 60.078 cm/s SSM CV F UJI PACS RVOT VTI 9.945 cm SSM CV FUJ I PACS RVOT VTI 9.945 cm SSM CV FUJ I PACS LA size 5.212 cm SSM CV FUJ I PACS LA size 5.212 cm SSM CV FUJ I PACS LA vol BP 113.732 ml SSM CV FUJ I PACS LA vol BP 113.732 ml SSM CV FUJ I PACS RA area 30.985 cm SSM CV FUJI PACS RA area 30.985 cm SSM CV FUJI PACS AV mn grad 3.511 mmHg SSM CV FU JI PACS AV mn grad 3.411 mmHg SSM CV FU JI PACS AV mn grad 3.773 mmHg SSM CV FU JI PACS AV mn grad 2.974 mmHg SSM CV FU JI PACS AV mn grad 3.375 mmHg SSM CV FU JI PACS AV mn grad 4.019 mmHg SSM CV FU JI PACS AV pk willem 114.754 cm/s SSM CV FUJ I PACS AV pk willem 110.456 cm/s SSM CV FUJ I PACS AV pk willem 121.201 cm/s SSM CV FUJ I PACS AV pk willem 105.62 cm/s SSM CV FUJ I PACS AV pk willem 115.291 cm/s SSM CV FUJ I PACS AV pk willem 121.201 cm/s SSM CV FUJ I PACS AV VTI 17.735 cm SSM CV FUJ I PACS AV VTI 13.615 cm SSM CV FUJ I PACS AV VTI 21.292 cm SSM CV FUJ I PACS AV VTI 15.571 cm SSM CV FUJ I PACS AV VTI 18.981 cm SSM CV FUJ I PACS AV VTI 19.215 cm SSM CV FUJ I PACS MV pk willem regurg 397.779 cm/s SSM CV FUJI PACS MV pk willem regurg 377.141 cm/s SSM CV FUJI PACS MV pk willem regurg 418.418 cm/s SSM CV FUJI PACS MV mn grad 2.13 mmHg SSM CV FU JI PACS MV mn grad 2.13 mmHg SSM CV FU JI PACS MV VTI 30.637 cm SSM CV FUJ I PACS MV VTI 30.637 cm SSM CV FUJ I PACS PV pk willem 88.486 cm/s SSM CV FUJ I PACS PV pk willem 81.83 cm/s SSM CV FUJ I PACS PV pk willem 95.141 cm/s SSM CV FUJ I PACS PV VTI 14.244 cm SSM CV FUJ I PACS PV VTI 12.047 cm SSM CV FUJ I PACS PV VTI 16.442 cm SSM CV FUJ I PACS TR pk willem 303.116 cm/s SSM CV FUJ I PACS TR pk willem 303.116 cm/s SSM CV FUJ I PACS Ascending aorta 3.367 cm SSM CV FUJI PACS Ascending aorta 3.367 cm SSM CV FUJI PACS IVC Diam Expiration 2.695 cm SSM CV FUJI PACS Sinus of Valsalva 3.285 cm SSM CV FUJI PACS Anatomical Region Laterality Modality Ultrasound 11/05/2023 1:24 PM CDT Narrative 11/05/2023 4:34 PM CDT Patient Info Name: Janneth Cummins Age: 67 years : 1955 Gender: Female Ht: 64 in Wt: 170 lb BSA: 1.89 m2 HR: 84 bpm BP: 92 / 78 mmHg Heart Rhythm: Atrial Fibrillation Exam Date: 11/05/2023 1:24 PM Patient Status: I/P Study Site: [facility] Primary Location: [facility] EStudy Info Technical Quality: Good Exam Type: ECHO COMPLETE W CONTRAST Indications R57.0 - Cardiogenic shock (HCC) Procedure(s) * Complete 2D, color Doppler, spectral Doppler and M-Mode transthoracic echocardiogram is performed with an Ultrasound Enhancing Agent (UEA). Contrast/Agitated Saline Contrast / Saline: Definity Amount: 0.50 ml Administered By: Anup Hays Reaction to Contrast: no Reason for Technically Difficult Study: body habitus Staff Referring Physician: Solomon Meyers Ordering Provider: Solomon Meyers Attending Physician: Solomon Meyers Test Desk Supervisor: Anup Hays Left Ventricle Left ventricular systolic function is moderately reduced with an estimated ejection fraction of 32% by biplane method of disks. The left ventricle is severely dilated. There is severe eccentric hypertrophy of the left ventricle. Severe left ventricular global hypokinesis. The left ventricular diastolic function is indeterminate. Diastolic function is indeterminate due to an abnormal rhythm. Right Ventricle The right ventricle is normal in size. Right ventricular systolic function is mildly reduced. Left Atrium The left atrium is severely dilated with a left atrial volume index of 60 ml/m2 by BP MOD. Right Atrium The right atrium is dilated. Atrial Septum Intact interatrial septum visualized by 2D and color Doppler imaging. Aortic Valve The aortic valve is trileaflet. There is no aortic valve regurgitation. There is no aortic valve stenosis with a peak velocity of 1.2 m/s, mean gradient of 4 mmHg, and aortic valve area of 2.6 cm2. Pulmonic Valve The pulmonic valve is normal. There is no pulmonic valve stenosis. There is mild pulmonic regurgitation. Mitral Valve The mitral valve is tethered with restricted motion. There is no mitral valve stenosis. There is moderate mitral valve regurgitation. Tricuspid Valve The tricuspid valve is normal. There is severe and moderate tricuspid valve regurgitation. There is no tricuspid valve stenosis. The pulmonary artery systolic pressure is mildly elevated, 45 mmHg. Inferior Vena Cava The inferior vena cava is dilated (> 2.1 cm). There is > 50% collapse of the IVC upon inspiration with an estimated right atrial pressure of 8 mmHg. Pericardium/Pleural There is a moderate, loculated and inferolateral pericardial effusion. Large left pleural effusion. Aorta The aortic root at the sinus of Valsalva is normal in size. The ascending aorta is normal in size. Measurements Left Ventricular Outflow Tract Name Value Normal LVOT 2D LVOT Diameter 2.0 cm LVOT Area 3.1 cm2 LVOT Doppler LVOT Peak Velocity 1.1 m/s LVOT Peak Gradient 4 mmHg LVOT Mean Velocity 84.05 cm/s LVOT Mean Gradient 3 mmHg LVOT VTI 17.5 cm LVOT VTI/AV VTI Ratio 0.8 LVOT Stroke Volume 55 ml LVOT Stroke Volume Index 29 ml/m2 35-58 LVOT CO 4.6 l/min LVOT CI 2.4 l/min/m2 Pulmonic Valve Name Value Normal PV 2D RVOT Diameter (2D) 2.0 cm 1.7-2.7 RVOT Doppler RVOT Peak Velocity 0.6 m/s RVOT Peak Gradient 1 mmHg RVOT Mean Gradient 1 mmHg PV Doppler PV Peak Velocity 1.0 m/s PV Peak Gradient 4 mmHg PV Mean Gradient 2 mmHg PV Area (Cont Eq VTI) 1.90 cm2 PV Area Index (Cont Eq VTI) 1.01 cm2/m2 PV Area (Cont Eq Willem) 2.0 cm2 PV Area Index (Cont Eq Willem) 1.05 cm2/m2 Mitral Valve Name Value Normal MV Doppler MV Peak Gradient 9 mmHg MV Mean Gradient 2 mmHg MV DI (VTI) 1.75 MV Area (Cont Eq VTI) 1.78 cm2 MV Regurgitation Doppler MR Peak Gradient 70 mmHg Tricuspid Valve Name Value Normal TV Regurgitation Doppler TR Peak Velocity 3.0 m/s TR Peak Gradient 37 mmHg Estimated PAP/RSVP RA Pressure 8 mmHg <=5 PA Systolic Pressure 45 mmHg <35 RV Systolic Pressure 45 mmHg <36 Aorta Name Value Normal Ascending Aorta Sinus of Valsalva Diameter 3.3 cm 2.4-3.6 Sinus of Valsalva Index 1.7 cm/m2 1.4-2.2 Asc Ao Diameter 3.4 cm 1.9-3.5 Asc Ao Diameter Index 1.8 cm/m2 1.0-2.2 Septae/Shunt/Generic Name Value Normal Qp/Qs Qp/Qs 0.6 Venous Name Value Normal IVC/SVC IVC Diameter 2.7 cm <=2.1 Aortic Valve Name Value Normal AV 2D/MM AV Cusp Sep (MM) 2.0 cm AV Doppler AV Peak Velocity 1.21 m/s AV Peak Gradient 6 mmHg AV Mean Gradient 4 mmHg AV VTI 21 cm AV Area (Cont Eq VTI) 2.57 cm2 >=2.00 AV Area (Cont Eq Willem) 2.72 cm2 AV DI (Willem) 0.87 AV Regurgitation 2D LVOT Area 3.12 cm2 Ventricles Name Value Normal LV Dimensions 2D/MM IVS Diastolic Thickness (2D) 0.9 cm 0.6-0.9 LVID Diastole (2D) 5.7 cm 3.8-5.2 LVPW Diastolic Thickness (2D) 0.9 cm 0.6-0.9 IVS Systolic Thickness (2D) 1.0 cm LVID Systole (2D) 5.3 cm 2.2-3.5 LVPW Systolic Thickness (2D) 1.0 cm LV Mass (2D Cubed) 231 g 67-162 LV Mass Index (2D Cubed) 122 g/m2 43-95 Relative Wall Thickness (2D) 0.30 <=0.42 LV Fractional Shortening/Ejection Fraction 2D/MM LV Fractional Shortening (2D) 7 % 27-45 LV EF (2D Teicholz) 15 % 54-74 LV Diastolic Volume (4C MOD) 127 ml LV EF (4C MOD) 22 % LV Diastolic Volume (2C MOD) 214 ml LV EF (2C MOD) 37 % LV Diastolic Volume (BP MOD) 175 ml 46-106 LV Diastolic Volume Index (BP MOD) 93 ml/m2 29-61 LV Systolic Volume (BP MOD) 119 ml 14-42 LV Systolic Volume Index (BP MOD) 63 ml/m2 8-24 LV EF (BP MOD) 32 % 54-74 LV Diastolic Length (4C) 8.0 cm LV Systolic Length (4C) 7.7 cm LV Stroke Volume (4C MOD) 28 ml RV Dimensions 2D/MM RVID Diastole (2D) 4.0 cm 2.5-3.5 RVID Systole (2D) 3.4 cm RV Basal Diastolic Dimension 4.1 cm 2.5-4.1 RV Diastolic Length (4C) 9.3 cm 5.9-8.3 Atria Name Value Normal LA Dimensions LA Dimension (2D) 5.2 cm 2.7-3.8 LA Dimen Index (2D) 2.8 cm/m2 LA Volume (BP MOD) 114 ml LA Volume Index (BP MOD) 60 ml/m2 16-34 RA Dimensions RA Area (4C) 31 cm2 <=18 RA Area (4C) Index 16 cm2/m2 Report Signatures Finalized by Caridad Luevano on 11/05/2023 04:34 PM Procedure Note Caridad Luevano MD - 11/05/2023 Patient Info Name: Janneth Cummins Age: 67 years : 1955 Gender: Female Ht: 64 in Wt: 170 lb BSA: 1.89 m2 HR: 84 bpm BP: 92 / 78 mmHg Heart Rhythm: Atrial Fibrillation Exam Date: 11/05/2023 1:24 PM Patient Status: I/P Study Site: [facility] Primary Location: [facility] EStud Info Technical Quality: Good Exam Type: ECHO COMPLETE W CONTRAST Indications R57.0 - Cardiogenic shock (HCC) Procedure(s) * Complete 2D, color Doppler, spectral Doppler and M-Modetransthoracic echocardiogram is performed with an Ultrasound Enhancing Agent (UEA). Contrast/Agitated Saline Contrast / Saline: Definity Amount: 0.50 ml Administered By: Anup Hays Reaction to Contrast: no Reason for Technically Difficult Study: body habitus Staff Referring Physician: Solomon Meyers Ordering Provider: Solomon Meyers Attending Physician: Solomon Meyers Test Desk Supervisor: Anup Hays Left Ventricle Left ventricular systolic function is moderately reduced with anestimated ejection fraction of 32% by biplane method of disks. The left ventricleis severely dilated. There is severe eccentric hypertrophy of the leftventricle. Severe left ventricular global hypokinesis. The left ventriculardiastolic function is indeterminate. Diastolic function is indeterminate due to an abnormal rhythm. Right Ventricle The right ventricle is normal in size. Right ventricular systolicfunction is mildly reduced. Left Atrium The left atrium is severely dilated with a left atrial volume index of60 ml/m2 by BP MOD. Right Atrium The right atrium is dilated. Atrial Septum Intact interatrial septum visualized by 2D and color Doppler imaging. Aortic Valve The aortic valve is trileaflet. There is no aortic valveregurgitation. There is no aortic valve stenosis with a peak velocity of 1.2 m/s, mean gradient of 4 mmHg, and aortic valve area of 2.6 cm2. Pulmonic Valve The pulmonic valve is normal. There is no pulmonic valve stenosis. Thereis mild pulmonic regurgitation. Mitral Valve The mitral valve is tethered with restricted motion. There is nomitral valve stenosis. There is moderate mitral valve regurgitation. Tricuspid Valve The tricuspid valve is normal. There is severe and moderate tricuspidvalve regurgitation. There is no tricuspid valve stenosis. The pulmonaryartery systolic pressure is mildly elevated, 45 mmHg. Inferior Vena Cava The inferior vena cava is dilated (> 2.1 cm). There is > 50% collapse ofthe IVC upon inspiration with an estimated right atrial pressure of 8 mmHg. Pericardium/Pleural There is a moderate, loculated and inferolateral pericardial effusion.Large left pleural effusion. Aorta The aortic root at the sinus of Valsalva is normal in size. Theascending aorta is normal in size. Measurements Left Ventricular Outflow Tract Name Value Normal LVOT 2D LVOT Diameter 2.0 cm LVOT Area 3.1 cm2 LVOT Doppler LVOT Peak Velocity 1.1 m/s LVOT Peak Gradient 4 mmHg LVOT Mean Velocity 84.05 cm/s LVOT Mean Gradient 3 mmHg LVOT VTI 17.5 cm LVOT VTI/AV VTI Ratio 0.8 LVOT Stroke Volume 55 ml LVOT Stroke Volume Index 29 ml/m2 35-58 LVOT CO 4.6 l/min LVOT CI 2.4 l/min/m2 Pulmonic Valve Name Value Normal PV 2D RVOT Diameter (2D) 2.0 cm 1.7-2.7 RVOT Doppler RVOT Peak Velocity 0.6 m/s RVOT Peak Gradient 1 mmHg RVOT Mean Gradient 1 mmHg PV Doppler PV Peak Velocity 1.0 m/s PV Peak Gradient 4 mmHg PV Mean Gradient 2 mmHg PV Area (Cont Eq VTI) 1.90 cm2 PV Area Index (Cont Eq VTI) 1.01 cm2/m2 PV Area (Cont Eq Willem) 2.0 cm2 PV Area Index (Cont Eq Willem) 1.05 cm2/m2 Mitral Valve Name Value Normal MV Doppler MV Peak Gradient 9 mmHg MV Mean Gradient 2 mmHg MV DI (VTI) 1.75 MV Area (Cont Eq VTI) 1.78 cm2 MV Regurgitation Doppler MR Peak Gradient 70 mmHg Tricuspid Valve Name Value Normal TV Regurgitation Doppler TR Peak Velocity 3.0 m/s TR Peak Gradient 37 mmHg Estimated PAP/RSVP RA Pressure 8 mmHg <=5 PA Systolic Pressure 45 mmHg <35 RV Systolic Pressure 45 mmHg <36 Aorta Name Value Normal Ascending Aorta Sinus of Valsalva Diameter 3.3 cm 2.4-3.6 Sinus of Valsalva Index 1.7 cm/m2 1.4-2.2 Asc Ao Diameter 3.4 cm 1.9-3.5 Asc Ao Diameter Index 1.8 cm/m2 1.0-2.2 Septae/Shunt/Generic Name Value Normal Qp/Qs Qp/Qs 0.6 Venous Name Value Normal IVC/SVC IVC Diameter 2.7 cm <=2.1 Aortic Valve Name Value Normal AV 2D/MM AV Cusp Sep (MM) 2.0 cm AV Doppler AV Peak Velocity 1.21 m/s AV Peak Gradient 6 mmHg AV Mean Gradient 4 mmHg AV VTI 21 cm AV Area (Cont Eq VTI) 2.57 cm2 >=2.00 AV Area (Cont Eq Willem) 2.72 cm2 AV DI (Willem) 0.87 AV Regurgitation 2D LVOT Area 3.12 cm2 Ventricles Name Value Normal LV Dimensions 2D/MM IVS Diastolic Thickness (2D) 0.9 cm 0.6-0.9 LVID Diastole (2D) 5.7 cm 3.8-5.2 LVPW Diastolic Thickness (2D) 0.9 cm 0.6-0.9 IVS Systolic Thickness (2D) 1.0 cm LVID Systole (2D) 5.3 cm 2.2-3.5 LVPW Systolic Thickness (2D) 1.0 cm LV Mass (2D Cubed) 231 g 67-162 LV Mass Index (2D Cubed) 122 g/m2 43-95 Relative Wall Thickness (2D) 0.30 <=0.42 LV Fractional Shortening/Ejection Fraction 2D/MM LV Fractional Shortening (2D) 7 % 27-45 LV EF (2D Teicholz) 15 % 54-74 LV Diastolic Volume (4C MOD) 127 ml LV EF (4C MOD) 22 % LV Diastolic Volume (2C MOD) 214 ml LV EF (2C MOD) 37 % LV Diastolic Volume (BP MOD) 175 ml 46-106 LV Diastolic Volume Index (BP MOD) 93 ml/m2 29-61 LV Systolic Volume (BP MOD) 119 ml 14-42 LV Systolic Volume Index (BP MOD) 63 ml/m2 8-24 LV EF (BP MOD) 32 % 54-74 LV Diastolic Length (4C) 8.0 cm LV Systolic Length (4C) 7.7 cm LV Stroke Volume (4C MOD) 28 ml RV Dimensions 2D/MM RVID Diastole (2D) 4.0 cm 2.5-3.5 RVID Systole (2D) 3.4 cm RV Basal Diastolic Dimension 4.1 cm 2.5-4.1 RV Diastolic Length (4C) 9.3 cm 5.9-8.3 Atria Name Value Normal LA Dimensions LA Dimension (2D) 5.2 cm 2.7-3.8 LA Dimen Index (2D) 2.8 cm/m2 LA Volume (BP MOD) 114 ml LA Volume Index (BP MOD) 60 ml/m2 16-34 RA Dimensions RA Area (4C) 31 cm2 <=18 RA Area (4C) Index 16 cm2/m2 Report Signatures Finalized by Caridad Luevano on 11/05/2023 04:34 PM Solomon Meyers MD ECHO CUPID * (ABNORMAL) SVO2 FOR RECALIBRATION (11/05/2023 3:50 AM CDT) Pathologist [facility] SVO2 for Recalibration 93.3(H) 66.0 - 77.0 % 11/05/2023 4:00 AM CDT [facility] Blood BLOOD SPECIMEN / Unknown Venipuncture / Unknown 11/05/2023 3:50 AM CDT 11/05/2023 3:57 AM CDT Solomon Meyers MD LAB - CHEMISTRY FABRICIO LEUNG [facility] [address] [place] [id number], [facility] [phone] * (ABNORMAL) BLOOD GASES ART + COOX PANEL (11/05/2023 1:21 AM CDT) pH Arterial 7.41 7.35 - 7.45 pH 11/05/2023 1:28 AM [facility] pO2 Arterial 79(L) 80 - 100 mmHg 11/05/2023 1:28 AM [facility] pCO2 Arterial 37 35 - 45 mmHg 1:28 AM [facility] HCO3 Arterial 23.5 20.0 - 30.0 mmol/L 11/05/2023 1:28 AM [facility] BE Arterial -0.9 -2.0 - 2.0 mmol/L 11/05/2023 1:28 AM [facility] Oxyhemoglobin Arterial 96.3 % 11/05/2023 1:28 AM [facility] Dexoyhemoglobin (HHB) % 1.5 % 11/05/2023 1:28 AM [facility] Methemoglobin 0.8 0.0 - 2.0 % 11/05/2023 1:28 AM [facility] Carboxyhemoglobin 1.5 0.0 - 2.0 % 2023 1:28 AM [facility] O2 Content Arterial 16.7 Interpret within clinical context ml/dL 11/05/2023 1:28 AM [facility] Hemoglobin by COOX 12.3 12.0 - 15.6 g/dL 11/05/2023 1:28 AM [facility] O2 Saturation Arterial 99 90 - 100 % 11/05/2023 1:28 AM [facility] FI O2 Arterial 21.0 % 11/05/2023 1:28 AM [facility] Blood, arterial ARTERIAL BLOOD SPECIMEN / Unknown Arterial Puncture / Unknown 11/05/2023 1:21 AM [facility] 11/05/2023 1:25 AM [facility] - 11/05/2023 1:28 AM [facility] Carboxyhemoglobin Normal Concentration: Non-smokers: 0-2%; Smokers: 0-9%; Toxic: >20% Solomon Meyers MD LAB - BLOOD GASES OR DERABLES [facility] [address] [place] [address], [facility] [phone] * XR CHEST 1VW PORTABLE (11/05/2023 12:38 AM CDT) Anatomical Region Laterality Modality Chest Radiographic Florecita ging 11/05/2023 10:4 7 AM CDT Narrative 11/05/2023 10:47 AM CDT PROCEDURE: XR CHEST 1VW PORTABLE DATE/TIME OF EXAM: 11/05/2023 12:38 AM CLINICAL INFORMATION: None relevant/not provided if blank. Indication: R57.0: Cardiogenic shock (HCC) Additional History: Findings/impression: The heart is markedly enlarged. Retrocardiac opacities are seen and there is left pleural effusion. Right lung is clear. No pneumothorax is seen. > Interpreting Provider: Nasir Paris MD on 11/05/2023 10:47 AM Procedure Note Nasir Paris MD - 11/05/2023 PROCEDURE: XR CHEST 1VW PORTABLE DATE/TIME OF EXAM: 11/05/2023 12:38 AM CLINICAL INFORMATION: None relevant/not provided if blank. Indication: R57.0: Cardiogenic shock (HCC) Additional History: Findings/impression: The heart is markedly enlarged. Retrocardiacopacities are seen and there is left pleural effusion. Right lung is clear. No pneumothorax is seen. > Interpreting Provider: Nasir Paris MD on 11/05/2023 10:47 AM Solomon Meyers MD DIAGNOSTIC IMAGING O RDERABLES * PTT [facility] (11/05/2023 12:32 AM CDT) APTT 35.5 23.0 - 38.4 Seconds 11/05/2023 1:26 AM CDT [facility] Comment:Suggested therapeuti c range for full dose I.V. unfractionated heparin therapy for venous thromboembolism is 71 to 109 seconds. Blood BLOOD SPECIMEN / Unknown Venipuncture / Unknown 11/05/2023 12:32 AM CDT 11/05/2023 12:42 AM CDT Solomon Meyers MD LAB - COAGULATION OR DERABLES [address] [address], [facility] [phone] * (ABNORMAL) PT-INR [facility] (11/05/2023 12:32 AM CDT) PT 17.6(H) 12.1 - 14.8 Seconds 11/05/2023 1:26 AM [facility] INR 1.5 See Comment 11/05/2023 1:26 AM [facility] Comment:The suggested therap eutic range for standard coumadin (warfarin) therapy is an INR of 2.0-3.0. For high-risk patients (Mechanical Mitral Valve Prosthesis, etc.), the suggested prophylactic therapeutic range is an INR of 2.5-3.5. Blood BLOOD SPECIMEN / Unknown Venipuncture / Unknown 11/05/2023 12:32 AM CDT 11/05/2023 12:42 AM CDT Solomon Meyers MD LAB - COAGULATION OR DERABLES Performing Organization Address City/State/[facility] Co de Phone Number [address] [address], [facility] [phone] * (ABNORMAL) BLOOD GASES MIGUEL ANGEL + COOX PANEL (11/05/2023 12:32 AM CDT) pH Venous 7.38 7.32 - 7.42 pH 11/05/2023 12:42 AM [facility] pO2 Venous 46(H) 35 - 40 mmHg 11/05/2023 12:42 AM [facility] pCO2 Venous 41 40 - 50 mmHg 11/05/2023 12:42 AM [facility] HCO3 Venous 24.3 20 - 30 mmol/L 11/05/2023 12:42 AM [facility] Base Excess Venous -0.8 -2.0 - 2.0 mmol/L 11/05/2023 12:42 AM [facility] Oxyhemoglobin Venous 80.3 % 10/26 12:42 AM [facility] Deoxyhemoglobin (HHB) Venous % 17.4 % 11/05/2023 12:42 AM [facility] Methemoglobin <0.8 0.0 - 2.0 % 11/05/2023 12:42 AM [facility] Carboxyhemoglobin 1.5 0.0 - 2.0 % 2023 12:42 AM [facility] O2 Content Venous 14.0 Interpret within clinical context ml/dL 11/05/2023 12:42 AM [facility] Hemoglobin by COOX 12.4 12.0 - 15.6 g/dL 11/05/2023 12:42 AM [facility] O2 Saturation Venous 82 >=70 % 10/26 12:42 AM [facility] FI O2 Mixed Venous 21.0 % 2023 12:42 AM [facility] Blood BLOOD SPECIMEN / Unknown Venipuncture / Unknown 11/05/2023 12:32 AM [facility] 11/05/2023 12:40 AM [facility] Narrative [facility] - 11/05/2023 12:42 AM [facility] Carboxyhemoglobin Normal Concentration: Non-smokers: 0-2%; Smokers: 0-9%; Toxic: >20% Solomon Meyers MD LAB - BLOOD GASES OR DERABLES Performing Organization Address City/State/[facility] Co de Phone Number [facility] [address] [place] [phone], [facility] [phone] * CARDIAC ECHOCARDIOGRAM COMPLETE ORDER (02/28/2010) Elijah Logan MD ECHO ORDERABLES * MRI SPINE LUMBAR NON CONTRAST (02/28/2010) Anatomical Region Laterality Modality Spine Other Elijah Logan MD MR ORDERABLES Care Teams Financial Analyst Accountant Relationship Specialty Start Date End Date David Han MD [address] [place] [address] PCP - General Internal Medicine 11/07/23
--- OUTSIDE RECORDS SUMMARY | 2024-06-13 10:51 | XMS_ITS | Data Portability ---
Author Organization [facility], [place] Address [address] [place] [address] Care Team Providers Care Molding Engineer Name Role Phone NATO DUKES Primary Care Provider Assessment Encounter Date Assessment Date Assessment LastModified by Organization Details LastModified Time 07/26/2020 07/26/2020 Annual gynecological exam performed. Patient will come back in a year unless there are new symptoms. Not available 07/26/2020 11:20:30 Plan of Treatment Reminders Order Date Submit Date Provider Last Modified By Organization Details Last Modified Time Details Appointments None recorded. Lab None recorded. Referral None recorded. Procedures None recorded. Surgeries None recorded. Imaging DEXA, axial skeleton + vertebral fracture assessment 2020 0[address] [facility], [address] [place], [address], 05:00:47 Medication Orders None recorded. Patient TargetsNo targets recorded. Patient InstructionsNo instructions recorded. Reason for Referral None Reported. Problems Name Problem SNOMED Code Status Onset Date Resolution Date Notes Provider Name and Address Organization Details Recorded Time Diabetes mellitus 60256251 Active 2020 Urszula fairchild [facility] 11:39:58 Hypertensive disorder 00420096 Active 2020 Urszula fairchild [facility] 11:40:07 Problem Notes None recorded. Procedures Surgical History Date Name Laterality Status Provider Name and Address Organization Details Recorded Time 07/27/19 21 Date of Last Pap Smear completed Urszula Lux [facility] 07/26/2020 13:04:27 04/28/19 17 total knee replacement completed [facility] 07/26/2020 17:41:36 04/28/19 10 abdominoplasty completed [facility] 07/26/2020 17:41:02 04/28/19 08 Gastric Bypass completed [facility] 07/26/2020 17:40:51 04/28/19 00 Breast reduction completed [facility] 07/26/2020 17:41:24 04/28/18 89 Partial Hysterectomy completed [facility] 07/26/2020 17:40:41 04/28/18 79 Tubal Ligation completed [facility] 07/26/2020 17:40:30 Imaging Results None recorded. Procedure Notes None recorded. Medical Equipment None Reported. Allergies No known drug allergies Medications Name Sig Start Date Stop Date Status Note LastModified by Organization Details LastModified Time celecoxib 200 mg capsule TAKE 1 CAPSULE BY MOUTH EVERY DAY active Not Available Not Available No t Available furosemide 40 mg tablet TAKE ONE TABLET BY MOUTH ONCE A DAY NEEDED FOR EDEMA active Not Available Not Available No t Available sulfamethoxa zole 800 mg-trimethop rim 160 mg tablet TAKE 1 TABLET BY MOUTH TWICE A DAY 07/26 completed Not Available Not Available Not Available hydrocodone 7.5 mg-acetamino phen 325 mg tablet TAKE 1 TABLET BY MOUTH EVERY 6 HOURS NEEDED DNF UNTIL 06/27/20 PER RX active Not Available Not Available No t Available omeprazole 20 mg capsule,mili yed release TAKE 1 CAPSULE BY MOUTH EVERY DAY active Not Available Not Available No t Available lisinopril 5 mg tablet TAKE 1 TABLET BY MOUTH EVERY DAY active Not Available Not Available No t Available Klor-Con M20 mEq tablet,exten ded release TAKE 1 TABLET BY MOUTH EVERY DAY active Not Available Not Available No t Available topiramate 50 mg tablet TAKE 2 TABLETS BY MOUTH TWICE A DAY active Not Available Not Available No t Available pregabalin 50 mg capsule TAKE 1 CAPSULE BY MOUTH TWICE A DAY active Not Available Not Available No t Available magnesium active Not Available Not Susu ilable Not Available aspirin active Not Available Not Avail able Not Available Fish Oil active Not Available Not Avai lable Not Available iron active Not Available Not Availa ble Not Available multivitamin active Not Available Not Available Not Available Vision-Geovanny Preserve active Not Available Not Available Not Available Lyrica active Not Available Not Availa ble Not Available calcium 166.75 mg-vit D3 166.75 unit-vit C-vit K2-minerals capsule Take by oral route. active Not Available Not Available No t Available Narcan 4 mg/actuation nasal spray USE 1 SPRAY IN NOSE ONCE FOR OVERSEDA TION, REPEAT IN 2 3 MINUTES IF NEEDED FOR 2 DOSES 07/26 completed Not Available Not Available Not Available turmeric active Not Available Not Avai lable Not Available Vitals Date Recorded Body height Body mass index (BMI) Body weight Systolic blood pressure Diastolic blood pressure Provider Name and Address Organization Details Last Updated DateTime 07/26/2020 161.29 cm 33.7 kg/m2 76137.33 g 120 mm[Hg] 79 mm[Hg] Urszula Lux [facility] 11:24:29 Social History Question Answer Notes LastModified by Organizat ion Details LastModified Time Tobacco Smoking Status Never Smoker Urszula Lxu [facility] 07/26/2020 17:40:08 What Is Your Level Of Alcohol Consumption? None [email or web address] Information not available 07/26/2020 Are You Blind Or Do You Have Difficulty Seeing? No [email or web address] Information n ot available 07/26/2020 What Is Your Level Of Caffeine Consumption? Heavy [email or web address] Information not available 07/26/2020 In The 14 Days Before Symptom Onset, Have You Had Close Contact With A Laboratory-confirm ed COVID-19 While That Case Was Ill? No [email or web address] Information n ot available 07/26/2020 In The 14 Days Before Symptom Onset, Have You Had Close Contact With A Person Who Is Under Investigation For COVID-19 While That Person Was Ill? No [email or web address] Information not available 07/26/2020 Have You Been To An Area Known To Be High Risk For COVID-19? No [email or web address] Information not available 07/26/2020 Are You Deaf Or Do You Have Serious Difficulty Hearing? No [email or web address] Information not available 07/26/2020 What Type Of Diet Are You Following? REGULAR [email or web address] Information n ot available 07/26/2020 Do You Use Your Seat Belt Or Car Seat Routinely? Yes [email or web address] Information not available 07/26/2020 Do You Have Smoke And Carbon Monoxide Detectors In Your Home? Yes [email or web address] Information not available 07/26/2020 Do You Feel Stressed (tense, Restless, Nervous, Or Anxious, Or Unable To Sleep At Night)? [id number] [email or web address] Information not available 07/26/2020 Do You Use Any Illicit Or Recreational Drugs? No Information not available 07/26/2020 Do You Use Sunscreen Routinely? Yes Information not available 07/26/2020 Has Tobacco Cessation Counseling Been Provided? No [email or web address] Information not available 07/26/2020 Do You Or Have You Ever Used Any Other Forms Of Tobacco Or Nicotine? No Information not available 07/26/2020 Sex: Unknown Functional Status Question Answer Note LastModified by Organizat ion Details LastModified Time Are you able to walk? YESWOREST [email or web address] Information not available 07/26/2020 What is your exercise level? Occasional [email or web address] Information not available 07/26/2020 Mental Status None recorded. Family History Relationship Description Onset Age of this Age Resolved Age Notes LastModified by Organization Details LastModified Time Mother Diabetes mellitus [email or web address] Not available 07/26 17:39:22 Mother Hypercholest erolemia [email or web address] Not available 07/26 17:39:30 Mother Hypertensive disorder Not available 07/26 17:39:40 Medical History Condition Response Allergies (Food, seasonal, environmental ) N Other Y Breast Cancer N Drug/Latex Allergies/Reactions N Blood Transfusion N Dermatologic Disorders N Lung Disease N Defects or Inherited Disease N Breast Problem Y Gestational Diabetes N Hematologic disorders N Anesthesia Complications N History of STI N Deep Vein Thrombosis N Polycystic ovary syndrome N Anxiety Disorder N Autoimmune disease N Arthritis N Infertility N Polyps N Acid Reflux (GERD) Y History of abnormal pap N Cancer N Stroke N Varicosities N Neurologic/Epilepsy Y Endometriosis N High Cholesterol N Headaches N Fibromyalgia N Kidney Disease N Heart Problems N Kidney or Bladder Problems N Thyroid Problems N GI Problems Y Eating Disorder N Anemia Y Art (IVF or FET) N Psychiatric Illness N Ovarian Cancer N Diabetes Y Pulmonary (TB, Asthma) N Hepatitis/Liver Disease N No Past Medical History N Eczema N Urinary Tract Infection N Abuse/Domestic Violence N Asthma N Trauma/Violence N Depression/ depression N Heart Disease N Pre-Eclampsia N Hypertension N Osteoporosis N Thrombophilias N Gynecological History Statement/Question Response Date of Last Pap Smear 07/26/2020 Current Control Method Tubal Ligat ion Desired Control Method Hysterectom y Date of LMP 04/28/1988 LMP Approximate Obstetrics History GPAL:G 6 P 3 0 3 3 Type Value Full Term 3 Spontaneous 3 Living 3 Total 6 Past Encounters Encounter ID Performer Location Encounter Start Date Encounter Closed Date Diagnosis/Indication Diagnosis SNOMED-CT Code Diagnosis ICD10 Code Diagnosis Note [id number] Abi Mccoy , [facility] [address] [address] 07/26/2020 11:07:19 07/26/2020 16:22:25 Gynecologic examination 13898014 Z01.419 Take Calcium with Vitamin D 12-1500mg daily. Do monthly self breast exams. It is advised to get annual flu shot in the fall and she could obtain at [facility] or [facility] care clinic. If you haven't received the Tdap vaccine in the last 10 years you should obtain one as well. Have mammogram yearly, bone density every 2-3 years and colonoscop y every 5-10 years depending on findings and history. Engage in daily exercise of low impact aerobic exercise 45-60 minutes 4-5 times weekly. Avoid tobacco and illicit drugs as well as using moderation with alcohol intake less than 1-2 8 oz beverages daily. This lifestyle behavior pattern will lead to less health conditions and longer life span. If BMI greater than 25 weight watchers or dietary consult advised. Questions have been answered. Patient appears to understand instructio ns, but if you have any further questions call or respond to this email Colon-Will discuss with PCP who she see's in 3mos. Dexa-order ed Mammo orderd Hx of hysterecto my for AUB non-cancer indication s in 1988. Normal pap/hpv hx We agreed to defer pap/hpv unless otherwise indicated. x 11yrs (second spouse) Postmenopa usal osteopenia [id number] M85.80 Health Concerns Section Related Observation LastModified by Organization Detai ls LastModified Time None Recorded Concern Status LastModified by Organization Details LastModified Time None Recorded Advance Directives Directive None Recorded Payers Encounter Date Sequence Insurance Name Policy Number Policy Dick Covered Member ID Dick Member ID Guarantor Name 07/26/2020 1 [employer] (MEDICARE REPLACEMENT HMO) [id number] L Janneth Cummins [id number] Janneth Cummins Notes Date Note Type Note Provider Name and Address Organization Details Recorded Time 07/26/2020 text/html Annual Flask Fitter Post-MenopausalRe ported bypatient.[place] Symptoms:no menopausal symptoms; normal vaginal lubrication Vaginal Bleeding:history of menopause having occurred; no history of post menopausal bleeding Urinary Symptoms:no hematuria; no incontinence; no nocturia; no urinary frequency Vulva:no genital lesion; no vulvar atrophy Vagina:normal vaginal discharge; no vaginal atrophy Breast:no breast lump; no nipple discharge; no breast pain Sexual Complaints:no sexual complaints Psychological Symptoms:no depression; no anxiety Preventive Measures:encourag e regular mammograms starting age 40; encourage self breast examination; encourage regular exercise; encourage no tobacco use; needs to schedule mammogram; needs to schedule colonoscopy (Thinks PCP said he's updating this. Will ask when goes to appt in 3mos); needs to schedule bone density Abi Mccoy, RA- [address], [place], [address], [facility] 07/26/2020 12:12:19 OBGyn Episode Ob Episode Information Episode Created Date Number of Fetuses Patient Bloodtype Patient rh Status Prepregnancy Weight lbs Domestic Partner Domestic Partner Phone Father Name Marketing Development Representative Status 07/27/19 21 1 CLOSED Fetus Data First Name Last Name Admitted to NICU Weight (g) Sex Living Outcome Pediatric Complications Fetus ID Race Codes Race Delivery Type [id number] F Prematur e [id number] Vaginal Delivery Charanjit Calculation Initial Charanjit Date Initial Exam Date Initial Exam Provider Initial Ultrasound Date Last Menstrual Period Date Ultra Sound Weeks Gestation 0 Eighteen To Twenty Week Charanjit Update Ultra Sound Date Fundal Height At Umbil Quickening Date Ultra Sound Latest Weeks Gestation Final Charanjit Confirmed By Final Charanjit Confirmed Date Final Charanjit Date Ultra Sound Latest Days Gestation 0 0 Menstrual History Last Menstrual Date Menses Monthly On Bcp Conception Prior Menses Frequency Hcg Plus Date Menarche Onset Age Delivery Information Delivery Date Delivery Type Labor Anesthesia Weeks Gestation Incision Type Labor Labor Length Hrs Delivered By Post Complications Tubal Sterilization Discharge Date Comments 9 32 Discharge Information Feeding Method Contraceptive Method Maternal HG B and HCT Levels Ob Episode Information Episode Created Date Number of Fetuses Patient Bloodtype Patient rh Status Prepregnancy Weight lbs Domestic Partner Domestic Partner Phone Father Name Marketing Development Representative Status 07/27/19 21 1 CLOSED Fetus Data First Name Last Name Admitted to NICU Weight (g) Sex Living Outcome Pediatric Complications Fetus ID Race Codes Race Delivery Type , Spontane ous [id number] Charanjit Calculation Initial Charanjit Date Initial Exam Date Initial Exam Provider Initial Ultrasound Date Last Menstrual Period Date Ultra Sound Weeks Gestation 0 Eighteen To Twenty Week Charanjit Update Ultra Sound Date Fundal Height At Umbil Quickening Date Ultra Sound Latest Weeks Gestation Final Charanjit Confirmed By Final Charanjit Confirmed Date Final Charanjit Date Ultra Sound Latest Days Gestation 0 0 Menstrual History Last Menstrual Date Menses Monthly On Bcp Conception Prior Menses Frequency Hcg Plus Date Menarche Onset Age Delivery Information Delivery Date Delivery Type Labor Anesthesia Weeks Gestation Incision Type Labor Labor Length Hrs Delivered By Post Complications Tubal Sterilization Discharge Date Comments 8 Discharge Information Feeding Method Contraceptive Method Maternal HG B and HCT Levels Ob Episode Information Episode Created Date Number of Fetuses Patient Bloodtype Patient rh Status Prepregnancy Weight lbs Domestic Partner Domestic Partner Phone Father Name Marketing Development Representative Status 07/27/19 21 1 CLOSED Fetus Data First Name Last Name Admitted to NICU Weight (g) Sex Living Outcome Pediatric Complications Fetus ID Race Codes Race Delivery Type , Spontane ous 8736 Charanjit Calculation Initial Charanjit Date Initial Exam Date Initial Exam Provider Initial Ultrasound Date Last Menstrual Period Date Ultra Sound Weeks Gestation 0 Eighteen To Twenty Week Charanjit Update Ultra Sound Date Fundal Height At Umbil Quickening Date Ultra Sound Latest Weeks Gestation Final Charanjit Confirmed By Final Charanjit Confirmed Date Final Charanjit Date Ultra Sound Latest Days Gestation 0 0 Menstrual History Last Menstrual Date Menses Monthly On Bcp Conception Prior Menses Frequency Hcg Plus Date Menarche Onset Age Delivery Information Delivery Date Delivery Type Labor Anesthesia Weeks Gestation Incision Type Labor Labor Length Hrs Delivered By Post Complications Tubal Sterilization Discharge Date Comments 6 Discharge Information Feeding Method Contraceptive Method Maternal HG B and HCT Levels Ob Episode Information Episode Created Date Number of Fetuses Patient Bloodtype Patient rh Status Prepregnancy Weight lbs Domestic Partner Domestic Partner Phone Father Name Marketing Development Representative Status 07/27/19 21 1 CLOSED Fetus Data First Name Last Name Admitted to NICU Weight (g) Sex Living Outcome Pediatric Complications Fetus ID Race Codes Race Delivery Type 1785.79 1704 F Prematur e 8733 Vaginal Delivery Charanjit Calculation Initial Charanjit Date Initial Exam Date Initial Exam Provider Initial Ultrasound Date Last Menstrual Period Date Ultra Sound Weeks Gestation 0 Eighteen To Twenty Week Charanjit Update Ultra Sound Date Fundal Height At Umbil Quickening Date Ultra Sound Latest Weeks Gestation Final Charanjit Confirmed By Final Charanjit Confirmed Date Final Charanjit Date Ultra Sound Latest Days Gestation 0 0 Menstrual History Last Menstrual Date Menses Monthly On Bcp Conception Prior Menses Frequency Hcg Plus Date Menarche Onset Age Delivery Information Delivery Date Delivery Type Labor Anesthesia Weeks Gestation Incision Type Labor Labor Length Hrs Delivered By Post Complications Tubal Sterilization Discharge Date Comments 7 28 Discharge Information Feeding Method Contraceptive Method Maternal HG B and HCT Levels Ob Episode Information Episode Created Date Number of Fetuses Patient Bloodtype Patient rh Status Prepregnancy Weight lbs Domestic Partner Domestic Partner Phone Father Name Marketing Development Representative Status 07/27/19 21 1 CLOSED Fetus Data First Name Last Name Admitted to NICU Weight (g) Sex Living Outcome Pediatric Complications Fetus ID Race Codes Race Delivery Type , Spontane ous 8735 Charanjit Calculation Initial Charanjit Date Initial Exam Date Initial Exam Provider Initial Ultrasound Date Last Menstrual Period Date Ultra Sound Weeks Gestation 0 Eighteen To Twenty Week Charanjit Update Ultra Sound Date Fundal Height At Umbil Quickening Date Ultra Sound Latest Weeks Gestation Final Charanjit Confirmed By Final Charanjit Confirmed Date Final Charanjit Date Ultra Sound Latest Days Gestation 0 0 Menstrual History Last Menstrual Date Menses Monthly On Bcp Conception Prior Menses Frequency Hcg Plus Date Menarche Onset Age Delivery Information Delivery Date Delivery Type Labor Anesthesia Weeks Gestation Incision Type Labor Labor Length Hrs Delivered By Post Complications Tubal Sterilization Discharge Date Comments 4 Discharge Information Feeding Method Contraceptive Method Maternal HG B and HCT Levels Ob Episode Information Episode Created Date Number of Fetuses Patient Bloodtype Patient rh Status Prepregnancy Weight lbs Domestic Partner Domestic Partner Phone Father Name Marketing Development Representative Status 07/27/19 21 1 CLOSED Fetus Data First Name Last Name Admitted to NICU Weight (g) Sex Living Outcome Pediatric Complications Fetus ID Race Codes Race Delivery Type 2494.75 6 F Prematur e 8732 Vaginal Delivery Charanjit Calculation Initial Charanjit Date Initial Exam Date Initial Exam Provider Initial Ultrasound Date Last Menstrual Period Date Ultra Sound Weeks Gestation 0 Eighteen To Twenty Week Charanjit Update Ultra Sound Date Fundal Height At Umbil Quickening Date Ultra Sound Latest Weeks Gestation Final Charanjit Confirmed By Final Charanjit Confirmed Date Final Charanjit Date Ultra Sound Latest Days Gestation 0 0 Menstrual History Last Menstrual Date Menses Monthly On Bcp Conception Prior Menses Frequency Hcg Plus Date Menarche Onset Age Delivery Information Delivery Date Delivery Type Labor Anesthesia Weeks Gestation Incision Type Labor Labor Length Hrs Delivered By Post Complications Tubal Sterilization Discharge Date Comments 5 32 Discharge Information Feeding Method Contraceptive Method Maternal HG B and HCT Levels
--- OUTSIDE RECORDS SUMMARY | 2024-06-13 10:51 | XMS_ITS | Referral Summary ---
Author Organization [facility] Medical Office Building B Address [address] [place] [address] Care Team Providers Care Administrative Assistant Office Manager Name Role Phone David Han MD Primary Care Provider [phone] Celia Bill CLAIM INVESTIGATOR Unavailable Unavailable Joann Tovar Unavailable [phone] Jocy Mooney PT Unavailable Unavailable Maksim Quiroga MD Unavailable [phone] Encounters Date Type Department Care Team Description 04/15/2024 Telephone [facility] Bone Marrow Transplant [facility] [address] [id number] Heidi Simpson RN 04/09/2024 6:25 AM CABLE CUTTER AND SWAGER - 04/09/2024 11:59 PM CABLE CUTTER AND SWAGER Hospital Encounter [facility] [address] [place] [id number] Maksim Quiroga MD Lytic bone lesions on xray Discharge Disposition: Discharge to home or self care 03/30/2024 8:15 AM CABLE C[employer]TER AND SWAGER Office Visit [facility] Sports Medicine [address] [place] [phone] Joann Tovar PA Insufficiency of right rotator cuff (Primary Dx); Primary osteoarthritis of left shoulder from Last 3 Months Allergies No known active allergies Medications calcium-vitamin D3-vitamin K 500 mg-1,000 unit-40 mcg tablet,chewable Acti ve multivitamin capsule Take 1 capsule by mouth daily Active omeprazole (PriLOSEC) 20 mg capsule Take 1 capsule (20 mg total) by mouth daily Active magnesium oxide 400 mg capsule Take by mouth. Active cyanocobalamin (Vitamin B-12) 1,000 mcg tablet Take 1 tablet (1,000 mcg total) by mouth daily Active topiramate (TOPAMAX) 100 mg tablet 2 (two) times a day 07/29/2018 Active iron bisgly,ps-FA-B- C#12-succ 65 mg-65 mg -1,000 mcg (24) tablet Take by mouth Active alendronate (FOSAMAX) 70 mg tablet Take 1 tablet (70 mg total) by mouth once a week 06/16/2023 Active apixaban (ELIQUIS) 5 mg tabletIndicatio ns:Multiple myeloma not having achieved remission (CMS/HCC) (HCC) Take 1 tablet (5 mg total) by mouth 2 (two) times a day 09/17/2023 Active Klor-Con M20 20 mEq CR tabletIndicatio ns:Multiple myeloma not having achieved remission (CMS/HCC) (HCC) Take 1 tablet (20 mEq total) by mouth daily as needed 08/18/2023 Active lisinopriL (PRINIVIL,ZESTR IL) 2.5 mg tabletIndicatio ns:Multiple myeloma not having achieved remission (CMS/HCC) (HCC) Take 1 tablet (2.5 mg total) by mouth daily Active amiodarone (PACERONE) 100 mg tablet Take 1 tablet (100 mg total) by mouth daily Active Active Problems Problem Noted Date Diagnosed Date MGUS (monoclonal gammopathy of unknown significa nce) 09/30/2023 Otosclerosis of right ear 10/13/2020 Mixed conductive and sensori neural hearing loss of right ear with restricted hearing of left ear 10/13/2020 ASNHL (asymmetrical sensorineural hearing loss) 06/19/2020 Assessment & Plan (08/01/2020 12:03 PM CDT): Right single sided deafness Referral to Neurotology for Cochlear implant candidacy MR IACs Negative Consider Hearing aid for the Left ear Assessment & Plan (06/19/2020 9:54 AM CABLE CUTTER AND SWAGER): MRI IACs - call with results and medically clear for hearing aids based on these findings Consider BiCROS versus Cochlear implant History of diabetes mellitus 04/03/2018 Assessment & Plan (04/03/2018 10:14 AM CABLE CUTTER AND SWAGER): Discussed options and will add GLP-1 analog -- semaglutide. Discussed risks, benefits, alternatives, potential side effects. Reviewed dosing and administration and referred to website for additional info. Weight loss counseling, encounter for 03/12/2018 Assessment & Plan (09/04/2018 11:57 AM CDT): Reviewed calorie restriction based on BMR as previously detailed. Reviewed recommendation/goal of >/= 150 minutes/week moderate-intensity aerobic exercise. Assessment & Plan (06/27/2018 4:18 PM CABLE CUTTER AND SWAGER): Reviewed calorie restriction based on BMR as previously detailed. Reviewed recommendation/goal of >/= 150 minutes/week moderate-intensity aerobic exercise. Asked to keep detailed food diary for at least 1 week and bring to next visit and/or continue tracking on phone. Assessment & Plan (05/08/2018 8:28 AM CABLE CUTTER AND SWAGER): Reviewed calorie restriction based on BMR as previously detailed. Reviewed recommendation/goal of >/= 150 minutes/week moderate-intensity aerobic exercise. Asked to keep detailed food diary for at least 1 week and bring to next visit and/or continue tracking on phone. Assessment & Plan (04/03/2018 10:09 AM CABLE CUTTER AND SWAGER): Reviewed calorie restriction based on BMR as previously detailed. Reviewed recommendation/goal of >/= 150 minutes/week moderate-intensity aerobic exercise. Asked to keep detailed food diary for at least 1 week and bring to next visit and/or continue tracking on phone. Assessment & Plan (03/12/2018 11:48 AM CABLE CUTTER AND SWAGER): Discussed that weight loss will require calorie deficit. Calculated basal metabolic rate and estimated total energy expenditure; discussed 500-1000 kcal/day deficit to lose 1-2 lb per week. Asked to keep detailed food diary for at least 1 week and bring to next visit. Discussed relatively small, although significant, role of exercise in weight loss; greater importance in weight maintenance. Metabolic and nutritional disorder 03/12/2018 Assessment & Plan (09/04/2018 11:57 AM CDT): Continue low-carb (<150 g/day), low-glycemic diet. Reviewed importance of adequate protein intake of 1-1.2 g/kg IBW/day. Assessment & Plan (06/27/2018 4:18 PM CABLE CUTTER AND SWAGER): Continue low-carb (<150 g/day), low-glycemic diet. Stay off of semaglutide. Assessment & Plan (05/08/2018 8:29 AM CABLE CUTTER AND SWAGER): Continue low-carb (<150 g/day), low-glycemic diet. Referred to ADA and [employer] websites for additional information on topics including glycemic index/carbohydrate choices, protein sources. Increase semaglutide to 0.5 mg weekly. Assessment & Plan (04/03/2018 10:13 AM CABLE CUTTER AND SWAGER): Continue low-carb (<150 g/day), low-glycemic diet. Reviewed importance of adequate protein intake of 1-1.2 g/kg IBW/day. Discussed that it does not appear she is getting to much protein, but encouraged her to monitor. Assessment & Plan (03/12/2018 11:49 AM CABLE CUTTER AND SWAGER): Discussed recent A1c 5.6 is right at the upper limit of normal. Discussed insulin resistance including affect on weight and risk for progression to diabetes. Recommended low-carb (< 150 g/day), low-glycemic diet; choose whole grains and avoid more highly processed carbohydrates. Discussed potential benefits of this w/r/t gut microbiome. Reviewed importance of adequate protein intake of 1-1.2 g/kg IBW/day. Referred to ADA and [employer] websites for additional information on topics including glycemic index/carbohydrate choices, protein sources. Snoring 03/12/2018 Assessment & Plan (03/12/2018 11:50 AM CABLE CUTTER AND SWAGER): Discussed importance of adequate sleep; good sleep hygiene in controlling weight as well as for overall health. Discussed comorbidities associated with sleep apnea, including effects on weight, and stressed importance of adequate treatment if present. Recommended she f/u PCP and consider sleep study. Class 3 severe obesity due t o excess calories with serious comorbidity and body mass index (BMI) of 40.0 to 44.9 in adult 03/12/2018 Assessment & Plan (09/04/2018 11:59 AM CDT): Obesity is improving with treatment. Behavioral treatment: have reccommended counseling. Diet interventions: as noted. Regular aerobic exercise program discussed. Pharmacotherapy as ordered. Assessment & Plan (06/27/2018 4:19 PM CABLE CUTTER AND SWAGER): Obesity is improving with treatment. Behavioral treatment: have recommended counseling.. Diet interventions: as noted. Regular aerobic exercise program discussed. Assessment & Plan (05/08/2018 8:29 AM CABLE CUTTER AND SWAGER): Obesity is unchanged. Diet interventions: as noted. Regular aerobic exercise program discussed. Pharmacotherapy as ordered. Titrate up on topiramate per pain management. Assessment & Plan (04/03/2018 10:15 AM CABLE CUTTER AND SWAGER): Obesity is unchanged. Behavioral treatment: have recommended counseling.. Diet interventions: as noted. Regular aerobic exercise program discussed. Pharmacotherapy as ordered. Assessment & Plan (03/12/2018 11:53 AM CABLE CUTTER AND SWAGER): Obesity is unchanged. General weight loss/lifestyle modification strategies discussed (elicit support from others; identify saboteurs; non-food rewards, etc). Behavioral treatment: recommended counseling. Diet interventions: diet diary indefinitely, low calorie (1000 kCal/d) deficit diet and as noted. Informal exercise measures discussed, e.g. taking stairs instead of elevator. Regular aerobic exercise program discussed. Discussed potential weight-positive effects of Lyrica; consider topiramate or zonisamide. Consider GLP-1 analog. Essential hypertension 03/12/2018 Assessment & Plan (09/04/2018 11:58 AM CDT): Hypertension is controlled. Continue current treatment regimen. Blood pressure will be reassessed at the next regular appointment. Assessment & Plan (06/27/2018 4:20 PM CABLE CUTTER AND SWAGER): BP improved today. Check BMP on DENNISE-I. Assessment & Plan (05/08/2018 8:30 AM CABLE CUTTER AND SWAGER): Restart lisinopril 5mg. F/U PCP. Assessment & Plan (03/12/2018 11:55 AM CABLE CUTTER AND SWAGER): BP elevated today. She is not on an DENNISE-I and I do not see history of intolerance -- recommended she f/u with PCP and would consider this. Reviewed role of diet, exercise, weight loss in controlling blood pressure. Recommended low sodium/DASH diet. Continue current medications. Weight gain status post gastric bypass 8 Assessment & Plan (03/12/2018 11:48 AM CABLE CUTTER AND SWAGER): Reviewed recent surgery labs, notes. Primary osteoarthritis of both knees 12/18/2016 Degeneration of lumbar or lumbosacral interverte bral disc 04/04/2010 Immunizations Immunization Administration Dates Next Due COVID-19 mRNA ([employer]) 0.3 m L (3 mcg) vaccine (6 months-4 years) 07/09/2023 Influenza, Quadrivalent, Cassie l Culture-based MDCK, Antibiotic Free, Intramuscular 03/09/2019 Influenza, Quadrivalent, Spl it, Intramuscular 04/16/2018 Influenza, Quadrivalent, Spl it, Preservative Free, Intramuscular 02/18/2022,02/01/2021,01/20/2020 Influenza, Trivalent, IM (MDV) 12/27/2022,2016 Influenza, Unspecified 12/27/2022 [employer] Inter[employer] SARS-CoV-2 Monovalent Vaccination (12+ Yrs) PURPLE 06/02/2020,05/12/2020 Pfizer Sars-Cov-2 Bivalent V accination (12+ YRS) 01/23/2023 Pneumococcal Polysaccharide PPV23 08/09/2021 RSV Vaccine, Pref, Recombina nt, Subunit, Adjuvanted, PF, IM (Arexvy) 04/08/2023 Sars-cov-2 Covid-19 Mrna, Bi valent, Original/omicron Ba.1 07/09/2023 ZOSTER Recombinant 12/02/2022,05/19/2020 Social History Tobacco Use Types Packs/Day Years Used Date Smoking Tobacco: Never Smokeless Tobacco: Never Alcohol Use Standard Drinks/Week Comments Yes 0 (1 standard drink = 0.6 oz pur e alcohol) rarely AUDIT-C Answer Date Recorded Q1: How often do you have a drink containing alc ohol? Never 12/06/2020 Average Number of Drinks Not on file 021 Frequency of Binge Drinking Not on file 11/26 Comments No Sex and Gender Information Value Date Recorded Sex Assigned at Not on file Legal Sex Female 8:07 AM CABLE CUTTER AND SWAGER Gender Identity Not on file Sexual Orientation Not on file Occupation Industry Job Start Date Job End Date [employer] Not on file Not on file Not on file Last Filed Vital Signs Vital Sign Reading Time Taken Comments Blood Pressure 129/79 03/30/2024 8:19 AM CABLE C[employer]TER AND SWAGER Pulse 59 03/30/2024 8:19 AM CABLE C[employer]TER AND SWAGER Temperature 36.3 C (97.3 F) 01/26/2024 7:57 AM CDT Respiratory Rate 16 01/26/2024 9:05 AM CDT Oxygen Saturation 98% 01/26/2024 9:05 AM CDT Inhaled Oxygen Concentration - - Weight 70.8 kg (156 lb) 04/09/2024 6:32 AM CABLE CUTTER AND SWAGER Height 162.6 cm (5' 4 ) 04/09/2024 6:32 AM CABLE CUTTER AND SWAGER Body Mass Index 26.78 04/09/2024 6:32 AM CABLE CUTTER AND SWAGER Plan of Treatment Not on file Medical Devices Implanted Type Area Creative Developer Device Identifier Shelf Expiration Date Model / Serial / Lot [employer] [id number] Piston Otology 5mm .5mm Eclipse 360d Incus Wide Flat Ribbon - [id number] Implanted:Qty: 1 on 12/06/2020 by Noelle Rachel MD at [facility] Right: Ear [employer] 03/25/2024 [id number] / / [id number] Procedures Procedure Name Priority Date/Time Associated Diagnosis Comments MRI SPINE TOTAL COMPLETE W WO CONTRAST Schedule Routine, Read Routine (OP Routine) 04/09/2024 8:54 AM CABLE CUTTER AND SWAGER Lytic bone lesions on xray MRI PELVIS W WO CONTRAST Schedule Routine, Read Routine (OP Routine) 04/09/2024 8:54 AM CABLE CUTTER AND SWAGER Lytic bone lesions on xray IA ARTHROCENTESIS ASPIR&/INJ MAJOR JT/BURSA W/O US Routine 03/30/2024 8:15 AM CABLE CUTTER AND SWAGER Insufficiency of right rotator cuff IA ARTHROCENTESIS ASPIR&/INJ MAJOR JT/BURSA W/O US Routine 03/30/2024 8:15 AM CABLE CUTTER AND SWAGER Primary osteoarthritis of left shoulder from Last 3 Months Results * MRI Spine Total Complete W WO Contrast (04/09/2024 8:54 AM CABLE CUTTER AND SWAGER) Anatomical Region Laterality Modality Spine N/A Magnetic Resonan ce 04/09/2024 3:16 PM CABLE C[employer]TER AND SWAGER Impressions 04/09/2024 4:33 PM CABLE C[employer]TER AND SWAGER 1. No significant interval change in the size or imaging characteristics of the enhancing thoracic spinal lesions. Myeloma remains in the differential. No new lesions are identified. 2. Incidentally noted moderate hiatal hernia. 3. Multilevel degenerative changes in the cervical, thoracic and lumbar spine resulting in moderate stenosis of the cervical spine. Cervical and lumbar hyperlordosis and thoracic hyperkyphosis is unchanged. Dictated by: Iván Yang MD The radiology attending physician has personally reviewed this study, and had reviewed and/or edited this written report and agrees with it. Electronically signed by: Nathan Campuzano MD Narrative 04/09/2024 4:33 PM CABLE CUTTER AND SWAGER EXAMINATION: 1. Magnetic resonance imaging (MRI) of the cervical spine without and with contrast 2. Magnetic resonance imaging (MRI) of the thoracic spine without and with contrast 3. Magnetic resonance imaging (MRI) of the lumbar spine without and with contrast HISTORY: 68-year-old with multiple osseous lesions, of unclear diagnostic significance. Reported history of MGUS. Interval thoracic vertebral body biopsy did not demonstrate evidence of malignancy. Follow-up MRI. TECHNIQUE: Multiplanar multi-weighted MRI of the cervical spine was performed without and with intravenous contrast using the standard protocol. Multiplanar multi-weighted MRI of the thoracic was performed without and with intravenous contrast using the standard protocol. Multiplanar multi-weighted MRI of the lumbar spine was performed without and with intravenous contrast using the standard protocol. Contrast information: 14 mL Gadoterate Meglumine COMPARISON: MR 10/22/2023. FINDINGS: CERVICAL SPINE: Hyperlordosis of the cervical spine, with redemonstration of multilevel disc height loss and desiccation. Posterior disc osteophyte complex at C4-C5, and ligamentum flavum infolding results in moderate canal stenosis, with associated impingement upon the cord. There is no evidence of associated cord signal abnormality. Similar findings are seen at C5-C6. These are not significantly changed compared to 10/22/2023. There is moderate bilateral neuroforaminal stenosis at C4-C5 secondary to uncovertebral arthropathy. Minimal enhancement seen at the C4 vertebral body endplate is in keeping with Modic type changes. THORACIC SPINE: Hyperkyphosis of the thoracic spine. There is a T1 isointense, T2 hyperintense lesion in the superior posterior aspect of the T4 vertebral body (with thin internal septation likely representing two adjacent lesions). This demonstrates modest enhancement on postcontrast images. Similar lesions are seen at the T10 vertebral body (previously biopsied), and the T12 vertebral body. No new lesions are identified. Minimal enhancement along the inferior and superior endplates of T7-T8 respectively likely represent Modic changes. There is no vertebral body compression deformity. CSF flow artifact noted throughout the spinal canal. No abnormal cord signal. There is no evidence of high-grade canal stenosis. The lesion at T10 involves the superior and anterior aspects of the neural foramen at the level, without evidence of stenosis. There may be apparent involvement with the left costovertebral joint. No definitive extraosseous extension. Overall size is similar to prior exam. Incidentally noted hiatal hernia. LUMBAR SPINE: Hyperlordosis of the lumbar spine, with multilevel disc desiccation. There is mild disc height loss and desiccation at L1-L2. No marrow replacing lesions are seen in the lumbar spine are imaged sacrum. There is no evidence of high-grade canal stenosis, or neuroforaminal stenosis. Moderate multilevel neuroforaminal stenosis noted. There is mild atrophy of the paraspinal musculature. Incidentally, multiple T2 hyperintense renal cysts are noted. Procedure Note Nathan Campuzano MD PhD - 04/09/2024 EXAMINATION: 1. Magnetic resonance imaging (MRI) of the cervical spine without and with contrast 2. Magnetic resonance imaging (MRI) of the thoracic spine without and with contrast 3. Magnetic resonance imaging (MRI) of the lumbar spine without and with contrast HISTORY: 68-year-old with multiple osseous lesions, of unclear diagnostic significance. Reported history of MGUS. Interval thoracic vertebral body biopsy did not demonstrate evidence of malignancy. Follow-up MRI. TECHNIQUE: Multiplanar multi-weighted MRI of the cervical spine was performed without and with intravenous contrast using the standard protocol. Multiplanar multi-weighted MRI of the thoracic was performed without and with intravenous contrast using the standard protocol. Multiplanar multi-weighted MRI of the lumbar spine was performed without and with intravenous contrast using the standard protocol. Contrast information: 14 mL Gadoterate Meglumine COMPARISON: MR 10/22/2023. FINDINGS: CERVICAL SPINE: Hyperlordosis of the cervical spine, with redemonstration of multilevel disc height loss and desiccation. Posterior disc osteophyte complex at C4-C5, and ligamentum flavum infolding results in moderate canal stenosis, with associated impingement upon the cord. There is no evidence of associated cord signal abnormality. Similar findings are seen at C5-C6. These are not significantly changed compared to 10/22/2023. There is moderate bilateral neuroforaminal stenosis at C4-C5 secondary to uncovertebral arthropathy. Minimal enhancement seen at the C4 vertebral body endplate is in keeping with Modic type changes. THORACIC SPINE: Hyperkyphosis of the thoracic spine. There is a T1 isointense, T2 hyperintense lesion in the superior posterior aspect of the T4 vertebral body (with thin internal septation likely representing two adjacent lesions). This demonstrates modest enhancement on postcontrast images. Similar lesions are seen at the T10 vertebral body (previously biopsied), and the T12 vertebral body. No new lesions are identified. Minimal enhancement along the inferior and superior endplates of T7-T8 respectively likely represent Modic changes. There is no vertebral body compression deformity. CSF flow artifact noted throughout the spinal canal. No abnormal cord signal. There is no evidence of high-grade canal stenosis. The lesion at T10 involves the superior and anterior aspects of the neural foramen at the level, without evidence of stenosis. There may be apparent involvement with the left costovertebral joint. No definitive extraosseous extension. Overall size is similar to prior exam. Incidentally noted hiatal hernia. LUMBAR SPINE: Hyperlordosis of the lumbar spine, with multilevel disc desiccation. There is mild disc height loss and desiccation at L1-L2. No marrow replacing lesions are seen in the lumbar spine are imaged sacrum. There is no evidence of high-grade canal stenosis, or neuroforaminal stenosis. Moderate multilevel neuroforaminal stenosis noted. There is mild atrophy of the paraspinal musculature. Incidentally, multiple T2 hyperintense renal cysts are noted. IMPRESSION: 1. No significant interval change in the size or imaging characteristics of the enhancing thoracic spinal lesions. Myeloma remains in the differential. No new lesions are identified. 2. Incidentally noted moderate hiatal hernia. 3. Multilevel degenerative changes in the cervical, thoracic and lumbar spine resulting in moderate stenosis of the cervical spine. Cervical and lumbar hyperlordosis and thoracic hyperkyphosis is unchanged. Dictated by: Iván Yang MD The radiology attending physician has personally reviewed this study, and had reviewed and/or edited this written report and agrees with it. Electronically signed by: Nathan Campuzano MD us Maksim Quiroga MD [facility] [place] PROCEDURES Vicky l Result * MRI Pelvis W WO Contrast (04/09/2024 8:54 AM CABLE CUTTER AND SWAGER) Anatomical Region Laterality Modality Pelvis N/A Magnetic Resonan ce 04/09/2024 1:19 PM CABLE C[employer]TER AND SWAGER Impressions 04/09/2024 4:58 PM CABLE C[employer]TER AND SWAGER Unchanged T2 hyperintense, enhancing 6 to 7 mm lesion in the right aspect of the sacrum at the level of S2. No other marrow replacing lesions. Dictated by: Petros Diaz M.D. The radiology attending physician has personally reviewed this study, and had reviewed and/or edited this written report and agrees with it. Electronically signed by: Jayce Mathews MD Narrative 04/09/2024 4:58 PM CABLE CUTTER AND SWAGER EXAMINATION: 1. MRI pelvis without and with contrast HISTORY: History of enhancing osseous lesions, no pathology findings to suggest malignancy. TECHNIQUE: MR examination of the pelvis was performed with a multi-coil ray. Multiplanar, multisequence MRI examination of the pelvis was completed prior to and following the intravenous administration of 14 mL of Dotarem. FINDINGS: Comparison is made to MRI of the pelvis dated 10/22/2023. There is an unchanged T2 hyperintense nonenhancing lesion in the sacrum within the right aspect of S2 measuring approximately 6 to 7 mm. No other marrow replacing lesions. No fractures. Degenerative disc disease of the visualized lower lumbar spine. Minimal degenerative changes of the pubic symphysis. The hips are well-seated bilaterally. There are trace at effusions bilaterally with synovitis. There are chronic high-grade tears of the left gluteus medius and minimus. Unchanged chronic partial-thickness tear of right gluteus medius tendon. Moderate to severe atrophy of the left gluteus medius and minimus over global muscular atrophy. Bilateral hamstring origin tendinopathy with partial-thickness tears. Hypertrophied left-sided tensor fascia sigrid when compared to the right. No lymphadenopathy. Visualized portions of the pelvic viscera are normal. Procedure Note Jayce Mathews MD - 04/09/2024 EXAMINATION: 1. MRI pelvis without and with contrast HISTORY: History of enhancing osseous lesions, no pathology findings to suggest malignancy. TECHNIQUE: MR examination of the pelvis was performed with a multi-coil ray. Multiplanar, multisequence MRI examination of the pelvis was completed prior to and following the intravenous administration of 14 mL of Dotarem. FINDINGS: Comparison is made to MRI of the pelvis dated 10/22/2023. There is an unchanged T2 hyperintense nonenhancing lesion in the sacrum within the right aspect of S2 measuring approximately 6 to 7 mm. No other marrow replacing lesions. No fractures. Degenerative disc disease of the visualized lower lumbar spine. Minimal degenerative changes of the pubic symphysis. The hips are well-seated bilaterally. There are trace at effusions bilaterally with synovitis. There are chronic high-grade tears of the left gluteus medius and minimus. Unchanged chronic partial-thickness tear of right gluteus medius tendon. Moderate to severe atrophy of the left gluteus medius and minimus over global muscular atrophy. Bilateral hamstring origin tendinopathy with partial-thickness tears. Hypertrophied left-sided tensor fascia sigrid when compared to the right. No lymphadenopathy. Visualized portions of the pelvic viscera are normal. IMPRESSION: Unchanged T2 hyperintense, enhancing 6 to 7 mm lesion in the right aspect of the sacrum at the level of S2. No other marrow replacing lesions. Dictated by: Petros Diaz M.D. The radiology attending physician has personally reviewed this study, and had reviewed and/or edited this written report and agrees with it. Electronically signed by: Jayce Mathews MD us Maksim Quiroga MD IMG MRI PROCEDURES Vicky l Result * [place] ARTHROCENTESIS ASPIR&/INJ MAJOR JT/BURSA W/O US (03/30/2024 8:15 AM CABLE CUTTER AND SWAGER) Narrative Joann Tovar PA - 03/30/2024 8:15 AM CABLE CUTTER AND SWAGER Joann Tovar PA 03/30/2024 8:57 AM Large Joint (Hip, Knee, Shoulder) Injection: R glenohumeral Performed by: Joann Tovar PA Authorized by: Joann Tovar PA Large Joint Injection/Aspiration: Consent Given by: Patient Site marked: the procedure site was marked Timeout: prior to procedure the correct patient, procedure, and site was verified Verbal consent obtained: Yes Supporting Documentation: Indications: Pain Procedure Details: Location: Shoulder Site: R glenohumeral Prep: patient was prepped and draped in usual sterile fashion Needle Size: 22 G Approach: Posterior Ultrasound guided: No Fluroscopic guidance: No Medications: 80 mg methylPREDNISolone acetate 80 mg/mL; 3 mL lidocaine 20 mg/mL (2 %) Patient tolerance: Patient tolerated the procedure well with no immediate complications us Joann GARCIA IN CLINIC/BEDSIDE ORDER PIERCE Final Result * IA ARTHROCENTESIS ASPIR&/INJ MAJOR JT/BURSA W/O US (03/30/2024 8:15 AM CABLE CUTTER AND SWAGER) Narrative Joann Tovar PA - 03/30/2024 8:15 AM CABLE CUTTER AND SWAGER Joann Tovar PA 03/30/2024 8:57 AM Large Joint (Hip, Knee, Shoulder) Injection: L glenohumeral Performed by: Joann Tovar PA Authorized by: Joann Tovar PA Large Joint Injection/Aspiration: Consent Given by: Patient Site marked: the procedure site was marked Timeout: prior to procedure the correct patient, procedure, and site was verified Verbal consent obtained: Yes Supporting Documentation: Indications: Pain Procedure Details: Location: Shoulder Site: L glenohumeral Prep: patient was prepped and draped in usual sterile fashion Needle Size: 22 G Approach: Posterior Ultrasound guided: No Fluroscopic guidance: No Medications: 80 mg methylPREDNISolone acetate 80 mg/mL; 3 mL lidocaine 20 mg/mL (2 %) Patient tolerance: Patient tolerated the procedure well with no immediate complications Joann GARCIA IN CLINIC/BEDSIDE ORDER PIERCE Final Result from Last 3 Months Insurance [facility] AETNA MEDICARE GOLD MEDICARE T MEDICARE GOLD IDPA AET MEDICARE GOLD IDPA Care Teams Administrative Assistant Office Manager Relationship Specialty Start Date End Date David Han MD [address] [place] [address] PCP - General Internal Medicine 01/13/17 Celia Bill, CLAIM INVESTIGATOR Physical Therapist Physical Therapy 03/31/17 Joann Tovar PA [address] [place] [address] DR RO[address] [place] [address] [address] Referring Physician Orthopedic Surgery 04/01/17 Jocy Mooney, PT Physical Therapist Physical Therapy 04/23/17 Maksim Quiroga MD [address] [address] Medical Oncologist/Solar Project Engineer Medical Oncology 09/25/23
--- OUTSIDE RECORDS SUMMARY | 2024-06-13 10:51 | XMS_ITS | Encounter Summary ---
Author Organization [facility] Address [address] [place] [address] Phone Care Team Providers Care Manufacturing Lab Technician Name Role Phone David Han MD Primary Care Provider [phone] Celia Bill PTA Unavailable Unavailable Joann Tovar Unavailable [phone] Jocy Mooney PT Unavailable Unavailable Maksim Quiroga MD Unavailable [phone] Encounter Details Date Type Department Care Team (Late st Contact Info) Description 09/25/2023 Telephone [facility] Bone Marrow Transplant [address] [facility] 7th Floor, [place] [address] Maksim Quiroga MD [address] DIV IM BONE MARROW TRANSPLANT, [address] [place] [address] Social History Tobacco Use Types Packs/Day Years [...] on file Legal Sex Female 8:07 AM ELECTRICIAN OFFICE Gender Identity Not on file Sexual Orientation Not on file 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 Not on file Not on file documented as of this encounter Plan of Treatment Not on file documented as of this encounter Visit Diagnoses Not on filedocumented in this encounter Care Teams Manufacturing Lab Technician Relationship Specialty Start Date End Date David Han MD [address] [place] [address] PCP - General Internal Medicine 01/13/17 Celia Bill, JOURNALIST Physical Therapist Physical Therapy 03/31/17 Joann Tovar PA [address] [place] [address] [place] [address] Referring Physician Orthopedic Surgery 04/01/17 Jocy Mooney, PT Physical Therapist Physical Therapy 04/23/17 Maksim Quiroga MD [address] [address] Medical Oncologist/Physical Sciences Professor Medical Oncology 09/25/23 documented as of this encounter
--- OUTSIDE RECORDS SUMMARY | 2024-06-13 10:51 | XMS_ITS | Clinical Summary ---
Author Organization [facility] Office Building [facility] Address [address] [place] [address] Care Team Providers Care Gift Officer Name Role Phone David Han MD Primary Care Provider [phone] Celia Bill BREAD PANNER Unavailable Unavailable Joann Tovar Unavailable Jocy Mooney PT Unavailable Unavailable Maksim Quiroga MD Unavailable Allergies No known active allergies Medications calcium-vitamin [...] ear Assessment & Plan (06/19/2020 9:54 AM FINE CHEMICALS OPERATOR): MRI IACs - call with results and medically clear for hearing aids based on these findings Consider BiCROS versus Cochlear implant History of diabetes mellitus 04/03/2018 Assessment & Plan (04/03/2018 10:14 AM FINE CHEMICALS OPERATOR): Discussed options and will add GLP-1 analog [...] exercise. Assessment & Plan (06/27/2018 4:18 PM FINE CHEMICALS OPERATOR): Reviewed calorie restriction based on BMR as previously detailed. Reviewed recommendation/goal of >/= 150 minutes/week moderate-intensity aerobic exercise. Asked to keep detailed food diary for at least 1 week and bring to next visit and/or continue tracking on phone. Assessment & Plan (05/08/2018 8:28 AM FINE CHEMICALS OPERATOR): Reviewed calorie restriction based on BMR as previously detailed. Reviewed recommendation/goal of >/= 150 minutes/week moderate-intensity aerobic exercise. Asked to keep detailed food diary for at least 1 week and bring to next visit and/or continue tracking on phone. Assessment & Plan (04/03/2018 10:09 AM FINE CHEMICALS OPERATOR): Reviewed calorie restriction based on BMR as previously detailed. Reviewed recommendation/goal of >/= 150 minutes/week moderate-intensity aerobic exercise. Asked to keep detailed food diary for at least 1 week and bring to next visit and/or continue tracking on phone. Assessment & Plan (03/12/2018 11:48 AM FINE CHEMICALS OPERATOR): Discussed that weight loss will require calorie [...] IBW/day. Assessment & Plan (06/27/2018 4:18 PM FINE CHEMICALS OPERATOR): Continue low-carb (<150 g/day), low-glycemic diet. Stay off of semaglutide. Assessment & Plan (05/08/2018 8:29 AM FINE CHEMICALS OPERATOR): Continue low-carb (<150 g/day), low-glycemic diet. Referred to [employer] and [employer] websites for additional information on topics including glycemic index/carbohydrate choices, protein sources. Increase semaglutide to 0.5 mg weekly. Assessment & Plan (04/03/2018 10:13 AM FINE CHEMICALS OPERATOR): Continue low-carb (<150 g/day), low-glycemic diet. Reviewed importance of adequate protein intake of 1-1.2 g/kg IBW/day. Discussed that it does not appear she is getting to much protein, but encouraged her to monitor. Assessment & Plan (03/12/2018 11:49 AM FINE CHEMICALS OPERATOR): Discussed recent A1c 5.6 is right at the upper limit of normal. Discussed insulin resistance including affect on weight and risk for progression to diabetes. Recommended low-carb (< 150 g/day), low-glycemic diet; choose whole grains and avoid more highly processed carbohydrates. Discussed potential benefits of this w/r/t gut microbiome. Reviewed importance of adequate protein intake of 1-1.2 g/kg IBW/day. Referred to ADA and [employer] websites for additional information on topics including glycemic index/carbohydrate choices, protein sources. Snoring 03/12/2018 Assessment & Plan (03/12/2018 11:50 AM FINE CHEMICALS OPERATOR): Discussed importance of adequate sleep; good sleep [...] ordered. Assessment & Plan (06/27/2018 4:19 PM FINE CHEMICALS OPERATOR): Obesity is improving with treatment. Behavioral treatment: have recommended counseling.. Diet interventions: as noted. Regular aerobic exercise program discussed. Assessment & Plan (05/08/2018 8:29 AM FINE CHEMICALS OPERATOR): Obesity is unchanged. Diet interventions: as noted. Regular aerobic exercise program discussed. Pharmacotherapy as ordered. Titrate up on topiramate per pain management. Assessment & Plan (04/03/2018 10:15 AM FINE CHEMICALS OPERATOR): Obesity is unchanged. Behavioral treatment: have recommended counseling.. Diet interventions: as noted. Regular aerobic exercise program discussed. Pharmacotherapy as ordered. Assessment & Plan (03/12/2018 11:53 AM FINE CHEMICALS OPERATOR): Obesity is unchanged. General weight loss/lifestyle modification [...] appointment. Assessment & Plan (06/27/2018 4:20 PM FINE CHEMICALS OPERATOR): BP improved today. Check BMP on DENNISE-I. Assessment & Plan (05/08/2018 8:30 AM FINE CHEMICALS OPERATOR): Restart lisinopril 5mg. F/U PCP. Assessment & Plan (03/12/2018 11:55 AM FINE CHEMICALS OPERATOR): BP elevated today. She is not on an DENNISE-I and I do not see history of intolerance -- recommended she f/u with PCP and would consider this. Reviewed role of diet, exercise, weight loss in controlling blood pressure. Recommended low sodium/DASH diet. Continue current medications. Weight gain status post gastric bypass Assessment & Plan (03/12/2018 11:48 AM FINE CHEMICALS OPERATOR): Reviewed recent surgery labs, notes. Primary osteoarthritis of both knees 12/18/2016 Degeneration of lumbar or lumbosacral interverte bral disc 04/04/2010 Encounters Date Type Department Care Team Description 04/15/2024 Telephone [facility] Bone Marrow Transplant [address] [facility] Floor [address] [place] [id number] Heidi Simpson RN 04/09/2024 6:25 AM FINE CHEMICALS OPERATOR - 04/09/2024 11:59 PM FINE CHEMICALS OPERATOR Hospital Encounter [facility] [address] [place] [address] Maksim Quiroga MD Lytic bone lesions on xray Discharge Disposition: Discharge to home or self care 03/30/2024 8:15 AM FINE CHEMICALS OPERATOR Office Visit [facility] Sports Medicine [address] [place] [phone] Joann Tovar PA Insufficiency of right rotator cuff (Primary Dx); Primary osteoarthritis of left shoulder from Last 3 Months Immunizations Immunization Administration Dates Next Due COVID-19 mRNA ([employer]) 0.3 m L (3 mcg) vaccine (6 months-4 years) 07/09/2023 Influenza, Quadrivalent, Cassie l Culture-based MDCK, Antibiotic Free, Intramuscular 03/09/2019 Influenza, Quadrivalent, Spl it, Intramuscular 04/16/2018 Influenza, Quadrivalent, Spl it, Preservative Free, Intramuscular 02/18/2022,02/01/2021,01/20/2020 Influenza, Trivalent, IM (MDV) 12/27/2022,2016 Influenza, Unspecified 12/27/2022 [facility] [employer] SARS-CoV-2 Monovalent Vaccination (12+ Yrs) PURPLE 06/02/2020,05/12/2020 Pfizer Sars-Cov-2 Bivalent V accination (12+ YRS) 01/23/2023 Pneumococcal Polysaccharide PPV23 08/09/2021 RSV Vaccine, Pref, Recombina nt, Subunit, Adjuvanted, PF, IM (Arexvy) 04/08/2023 Sars-cov-2 Covid-19 Mrna, Bi valent, Original/omicron Ba.1 07/09/2023 ZOSTER Recombinant 12/02/2022,05/19/2020 Surgical History Surgery Date Site/Laterality Comments KNEE ARTHROSCOPY GASTRIC BYPASS NASAL SEPTUM SURGERY 3x BIOPSY DEEP BONE 01/26/2024 N/A Medical History Medical History Date Comments Osteoporosis Diabetes mellitus (HCC) Osteoarthritis Anemia Hypertension Fracture of nasal bones Type 2 diabetes mellitus (HCC) Loss of hearing PONV (postoperative nausea and vomiting) GERD (gastroesophageal reflux disease) Headache A-fib (CMS/HCC) (HCC) Family History Medical History Relation Name Comments Thyroid cancer Daughter Cancer Father Diabetes Mother Heart attack Mother Hypertension Mother Relation Name Status Comments Daughter Father Mother Social History Tobacco Use Types Packs/Day Years [...] on file Legal Sex Female 8:07 AM FINE CHEMICALS OPERATOR Gender Identity Not on file Sexual Orientation Not on file 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 Not on file Not on file Obstetrics History Last Filed Vital Signs Vital Sign Reading Time Taken Comments Blood Pressure 129/79 03/30/2024 8:19 AM FINE CHEMICALS OPERATOR Pulse 59 03/30/2024 8:19 AM FINE CHEMICALS OPERATOR Temperature 36.3 C (97.3 F) 01/26/2024 7:57 AM CDT Respiratory Rate 16 01/26/2024 9:05 AM CDT Oxygen Saturation 98% 01/26/2024 9:05 AM CDT Inhaled Oxygen Concentration - - Weight 70.8 kg (156 lb) 04/09/2024 6:32 AM FINE CHEMICALS OPERATOR Height 162.6 cm (5' 4 ) 04/09/2024 6:32 AM FINE CHEMICALS OPERATOR Body Mass Index 26.78 04/09/2024 6:32 AM FINE CHEMICALS OPERATOR Plan of Treatment Health Maintenance Due Date Last Done Comments Colon Cancer Screening-Colonoscopy 1955 Depression Screening 1955 Hepatitis C Screening 1955 DTaP/Tdap/Td Vaccine (1 - Tdap) 11/24/1967 Hepatitis B Screening 1974 Well Visit 65+ 2021 Pneumococcal vaccine 65+ (2 of 2 - PCV) 08/09/2022 08/09/2021 Breast Cancer Screening-Mammogram 10/23/2023 10/22/2022, 10/22/2022, 08/03/2020, Additional history exists Covid-19 Vaccine (5 - 2023-2 5 season) 2024 12/31/2023, 07/09/2023, 07/09/2023, Additional history exists Osteoporosis Screening-Bone Density Scan 10/22/2024 10/22/2022, 10/22/2022 Fall Risk Assessment 01/25/2025 01/26/2024 Zoster Vaccine Completed 12/02/2022, 05/19/2020 Influenza Vaccine Completed 12/31/2023, , 12/27/2022, Additional history exists Medical Devices Implanted Type Area Field Machinist Device Identifier Shelf Expiration Date Model / Serial / Lot [employer] 720-049 Piston Otology 5mm .5mm Eclipse 360d Incus Wide Flat Ribbon - [id number] Implanted:Qty: 1 on 12/06/2020 by Noelle Rachel MD at [facility] Right: Ear [employer] 03/25/2024 [id number] / / [id number] Procedures Procedure Name Priority Date/Time Associated Diagnosis Comments MRI SPINE TOTAL COMPLETE W WO CONTRAST Schedule Routine, Read Routine (OP Routine) 04/09/2024 8:54 AM FINE CHEMICALS OPERATOR Lytic bone lesions on xray MRI PELVIS W WO CONTRAST Schedule Routine, Read Routine (OP Routine) 04/09/2024 8:54 AM FINE CHEMICALS OPERATOR Lytic bone lesions on xray [place] ARTHROCENTESIS ASPIR&/INJ MAJOR JT/BURSA W/O US Routine 03/30/2024 8:15 AM FINE CHEMICALS OPERATOR Insufficiency of right rotator cuff VA ARTHROCENTESIS ASPIR&/INJ MAJOR JT/BURSA W/O US Routine 03/30/2024 8:15 AM FINE CHEMICALS OPERATOR Primary osteoarthritis of left shoulder from Last 3 Months Results * MRI Spine Total Complete W WO Contrast (04/09/2024 8:54 AM FINE CHEMICALS OPERATOR) Anatomical Region Laterality Modality Spine N/A Magnetic Resonan ce 04/09/2024 3:16 PM FINE CHEMICALS OPERATOR Impressions 04/09/2024 4:33 PM FINE CHEMICALS OPERATOR 1. No significant interval change in the [...] Nathan Campuzano MD Narrative 04/09/2024 4:33 PM FINE CHEMICALS OPERATOR EXAMINATION: 1. Magnetic resonance imaging (MRI) of [...] Nathan Campuzano MD us Maksim Quiroga MD [facility] MRI PROCEDURES Vicky l Result * MRI Pelvis W WO Contrast (04/09/2024 8:54 AM FINE CHEMICALS OPERATOR) Anatomical Region Laterality Modality Pelvis N/A Magnetic Resonan ce 04/09/2024 1:19 PM FINE CHEMICALS OPERATOR Impressions 04/09/2024 4:58 PM FINE CHEMICALS OPERATOR Unchanged T2 hyperintense, enhancing 6 to 7 mm lesion in the right aspect of the sacrum at the level of S2. No other marrow replacing lesions. Dictated by: Petros Diaz M.D. The radiology attending physician has personally reviewed this study, and had reviewed and/or edited this written report and agrees with it. Electronically signed by: Jayce Mathews MD Narrative 04/09/2024 4:58 PM FINE CHEMICALS OPERATOR EXAMINATION: 1. MRI pelvis without and with [...] IMG MRI PROCEDURES Vicky l Result * [place] ARTHROCENTESIS ASPIR&/INJ MAJOR JT/BURSA W/O US (03/30/2024 8:15 AM FINE CHEMICALS OPERATOR) Joann Aragon PA - 03/30/2024 8:15 AM FINE CHEMICALS OPERATOR Joann Tovar PA 03/30/2024 8:57 AM Large [...] IN CLINIC/BEDSIDE ORDER PIERCE Final Result * [place] ARTHROCENTESIS ASPIR&/INJ MAJOR JT/BURSA W/O US (03/30/2024 8:15 AM FINE CHEMICALS OPERATOR) Narrative Joann Tovar PA - 03/30/2024 8:15 AM FINE CHEMICALS OPERATOR Joann Tovar PA 03/30/2024 8:57 AM Large [...] Final Result from Last 3 Months Insurance [employer] TNA MEDICARE GOLD MEDICARE [place] [address] AETNA MEDICARE GOLD IDOH Care Teams Gift Officer Relationship Specialty Start Date End Date David Han MD [address] [place] [address] PCP - General Internal Medicine 01/13/17 Celia Bill, BREAD PANNER Physical Therapist Physical Therapy 03/31/17 Joann Tovar PA [address] [place] [address] DR ROACH [address] [place] [address] Referring Physician Orthopedic Surgery 04/01/17 Jocy Mooney, PT Physical Therapist Physical Therapy 04/23/17 Maksim Quiroga MD [address] [facility] [address] [facility] [address] Medical Oncologist/Coke Inspector Medical Oncology 09/25/23
--- OUTSIDE RECORDS SUMMARY | 2024-06-13 10:51 | XMS_ITS | Encounter Summary ---
Author Organization [facility] Address [address] [place] [address] Phone Care Team Providers Care Plant Guide Name Role Phone David Han MD Primary Care Provider [phone] Suly Prabhakar APRN, DESIGN TECHNOLOGY PROFESSOR Unavailable + [phone] Solomon Meyers MD PhD Unavailable [phone] Marisela Hi APRN, DESIGN TECHNOLOGY PROFESSOR Unavailable [phone] Suly Prabhakar APRN, DESIGN TECHNOLOGY PROFESSOR Unavailable + [phone] Reason for Visit * Reason Comments Medication Refill Encounter Details Date Type Department Care Team (Late st Contact Info) Description 10/14/2023 Refill [facility] - Internal Medicine - [place]aret [address] [place] [address] David Han MD [address] [place] [address] Medication Refill Social History Tobacco Use Types Packs/Day Years Used Date Smoking Tobacco: Never Passive Smoke Exposure: Never Smokeless Tobacco: Never Alcohol Use Standard Drinks/Week Comments Not Currently 0 (1 standard drink = 0.6 oz pur e alcohol) [facility] Utilities Answer Date Recorded In the past 12 months has [employer], oil, or mobifriends threatened to shut off services in your home? No 09/16/2023 Social Connection and Isolat ion Panel [NHANES] Answer Date Recorded In a typical week, how many times do you talk on the phone with family, friends, or neighbors? More than three times a week 09/16/2023 How often do you get togethe r with friends or relatives? Twice a week 09/16/2023 How often do you attend chur ch or anabaptist services? 1 to 4 times per year 09/16/2023 Do you belong to any clubs o r organizations such as amish groups, unions, fraternal or athletic groups, or [...] Total Score - Questions 1-9 0 04/28 [facility] - Occupational Stress Questionnaire Answer Date [...] the money to buy more. Never true 09/16/19 24 Within the past 12 months, t he food you bought just didn't last and you didn't have money to get more. Never true 09/16/2023 PRAPARE - Transportation Answer Date Re corded In the past 12 months, has l ack of transportation kept you from medical appointments or from getting medications? No 08/27 In the past 12 months, has l ack of transportation kept you from meetings, work, or from getting things needed for daily living? No 09/16/2023 Housing Stability Vital Sign Answer [...] place to sleep or slept in a snf (including now)? No 09/16/2023 Education Answer Date Recorded What is the [...] Telephone Encounter - Alta Liriano RN - 10/14/2023 9:58 AM CDT Medication(s) refilled and signed per [facility] Chronic Medication Refill Standing Order for Pediatricand Adult Patients. Requested Prescriptions Pending Prescriptions Disp Refills metoprolol Succinate (TOPROL-XL) 25 MG TABLET SR 24 HR [Pharmacy Med Name: METOPROLOL SUCC ER 25 MGTAB] 90 Tablet 1 Sig: TAKE 1 TABLET BY MOUTH EVERY DAY Beta-Blockers Protocol Passed - 10/14/2023 7:19 AM Passed - BP on record in the past year Clinician-entered: BP Readings from Last 3 Encounters: 10/06/23 (!) 124/92 09/17/23 122/82 06/16/23 128/72 Patient-entered: No data recorded Passed - Visit with relevant provider in past 12 months or upcoming 90 days Recent Visits Date Type Provider Dept 09/17/23 Office Visit David Han MD [facility] 06/16/23 Office Visit David Han MD [facility] 03/05/23 Office Visit David Han MD [facility] 12/02/22 Office Visit David Han MD [facility] 10/15/22 Office Visit David Han MD [facility] Showing recent visits within past 365 days and meeting all other requirements Future Appointments Date Type Provider Dept 12/18/23 Appointment David Han MD [facility] Showing future appointments within next 90 days and meeting all other requirements documented in this encounter Plan of Treatment Upcoming Encounters Date Type Department Care Team (Late st Contact Info) Description 06/17/2024 8:40 AM STEAMER BLOCKER Lab [facility] Internal Medicine [facility] [address] [place] [address] Jaret [facility] 06/24/2024 8:15 AM STEAMER BLOCKER Office Visit [facility] Internal Medicine [facility] [address] [place] [address] David Han MD [address] [place] [address] 09/13/2024 1:00 PM CDT Office Visit [facility] - Cardiology - [place] [address] [place] [address] Suly Prabhakar APRN, DESIGN TECHNOLOGY PROFESSOR #2 [facility], [address] [place] [address] 10/25/2024 8:00 AM CDT [facility] - Pulmonology & Sleep Medicine - [place] [address] [place] [address] Marisela Hi APRN, MARY ANN #2 [facility] [address] [place] [address] documented as of this encounter Visit Diagnoses Not on filedocumented in this encounter Additional Health Concerns Assessment Noted Time PHQ-9 Depression Total Score: 0 07/26/19 21 9:00 AM CDT documented as of this encounter Care Teams Plant Guide Relationship Specialty Start Date End Date David Han MD [address] [place] [address] PCP - General Internal Medicine 01/14/20 Suly Prabhakar APRN, DESIGN TECHNOLOGY PROFESSOR #[address] [facility], [facility] [address] [place] [address] Nurse Practitioner Advanced Practice Nurse 10/29/23 Solomon Meyers MD PhD [address] [place] [address] Flight Attendant Interventional Cardiology 12/02/23 Marisela Hi APRN, DESIGN TECHNOLOGY PROFESSOR #2 [facility] [address] [place] [address] Nurse Practitioner Advanced Practice Nurse 01/19/24 Suly Prabhakar APRN, DESIGN TECHNOLOGY PROFESSOR #2 [facility] [place], [facility] [address] [place] [address] Nurse Practitioner Cardiology 03/24/24 documented as of this encounter
--- OUTSIDE RECORDS SUMMARY | 2024-06-13 10:51 | XMS_ITS | Encounter Summary ---
Author Organization [facility] Address [address] [facility] [address] [facility] [address] [facility] [place] [address] Phone Care Team Providers Care Pharmacy Technician Name Role Phone David Han MD Primary Care Provider [phone] Suly Prabhakar APRN, HOSPICE MASSAGE THERAPIST Unavailable + [phone] Solomon Meyers MD PhD Unavailable +[phone] Marisela Hi APRN, HOSPICE MASSAGE THERAPIST Unavailable [phone] Suly Prabhakar APRN, HOSPICE MASSAGE THERAPIST Unavailable + [phone] Reason for Visit * Reason Comments Medication Refill Encounter Details Date Type Department Care Team (Late st Contact Info) Description 07/06/2022 Refill [facility] Internal Medicine - [place] [address] [place] [address] David Han MD [address] [place] [address] Medication Refill Social History Tobacco Use Types Packs/Day Years Used Date Smoking Tobacco: Never Smokeless Tobacco: Never Alcohol Use Standard Drinks/Week Comments Not Currently 0 (1 standard drink = 0.6 oz pur e alcohol) PHQ-2 Answer Date Recorded Total Score - Questions 1-9 0 04/28 Sexually Active Control Partners Comments Yes Post-menopausal Comments No Sex and Gender Information Value Date Recorded Sex Assigned at Not on file Legal Sex Female 1:44 PM CDT Gender Identity Not on file Sexual Orientation Not on file documented as of this encounter Miscellaneous Notes * Telephone Encounter - Alta Liriano RN - 07/08/2022 8:20 AM CDT Medication failed the protocol, provider to review and approve the medication order if appropriate. Requested Prescriptions Pending Prescriptions Disp Refills Klor-Con M20 20 MEQ Tablet Controlled Release [Pharmacy Med Name: KLOR-CON M20 TABLET] 90 Tablet 0 Sig: TAKE 1 TABLET BY MOUTH DAILY NEEDED (TAKE WITH LASIX) Potassium Supplement Protocol Failed - 07/06/2022 10:07 AM Failed - Normal serum potassium in past 12 months POTASSIUM Date Value Ref Range Status 02/01/2021 4.5 3.5 - 5.1 mmol/L Final Passed - Visit with relevant provider in past 12 months or upcoming 90 days Recent Visits Date Type Provider Dept 05/27/22 Office Visit David Han MD [facility] [place] 02/18/22 Office Visit David Han MD [facility] 11/26/21 Office Visit David Han MD [facility] [place] 11/12/21 Office Visit David Han MD [facility] [place] 08/09/21 Office Visit David Han MD [facility] [place] Showing recent visits within past 365 days and meeting all other requirements Future Appointments Date Type Provider Dept 08/26/22 Appointment David Han MD [facility] [place] Showing future appointments within next 90 days and meeting all other requirements documented in this encounter Plan of Treatment Upcoming Encounters Date Type Department Care Team (Late st Contact Info) Description 06/17/2024 8:40 AM MUD JACK NOZZLEMAN Lab [facility] - Internal Medicine - [place] [address] [place] [address] [place] [facility] 06/24/2024 8:15 AM MUD JACK NOZZLEMAN Office [facility] - Internal Medicine [facility] [address] [facility] [place] [address] David Han MD [address] [place] [address] 09/13/2024 1:00 PM CDT Office Visit [facility] Cardiology - [place] [address] [place] [address] Suly Prabhakar, CAREGIVER ASSISTED LIVING, HOSPICE MASSAGE THERAPIST #2 [facility] [address] [facility], [address] [place] [address] 10/25/2024 8:00 AM CDT Office Visit [facility] - Pulmonology & Sleep Medicine [facility] [address] [place] [address] Marisela Hi APRN, HOSPICE MASSAGE THERAPIST #2 [facility] [address] [place] [address] documented as of this encounter Visit Diagnoses Not on filedocumented in this encounter Additional Health Concerns Infection Onset Date Last Indicated Resolved Time COVID - 19 06/16/2023 06/16/2023 06/26/2023 12:1 6 AM MUD JACK NOZZLEMAN Respiratory Rule-Out 06/16/2023 06/16/2023 024 10:28 AM MUD JACK NOZZLEMAN Assessment Noted Time PHQ-9 Depression Total Score: 0 07/26/19 21 9:00 AM CDT documented as of this encounter Care Teams Pharmacy Technician Relationship Specialty Start Date End Date David Han MD [address] [place] [address] PCP - General Internal Medicine 01/14/20 Suly Prabhakar, CAREGIVER ASSISTED LIVING, HOSPICE MASSAGE THERAPIST #2 [facility], [address] [place] [address] Nurse Practitioner Advanced Practice Nurse 10/29/23 Solomon Meyers MD PhD [address] [place] [address] Almond Roaster Interventional Cardiology 12/02/23 Marisela Hi APRN, HOSPICE MASSAGE THERAPIST #2 [facility] DOC [address] [place] [address] Nurse Practitioner Advanced Practice Nurse 01/19/24 Suly Prabhakar APRN, HOSPICE MASSAGE THERAPIST #2 [facility] [address] [facility], [address] [place] [address] Nurse Practitioner Cardiology 03/24/24 documented as of this encounter
--- OUTSIDE RECORDS SUMMARY | 2024-06-13 10:51 | XMS_ITS | Referral Summary ---
Author Organization [facility] Address [address] [facility] [place] [address] Care Team Providers Care Binding Cutter Name Role Phone David Han MD Primary Care Provider [phone] Source Comments [facility],non-owned Affiliates and Associated Physician Practices is amultiple site organization consisting of ambulatory clinics and hospital sitesin [place], [place], [place] and [place]. This disclosure is being madepursuant to the Care Everywhere program and may not contain all information available regarding this patient. Last updated 18.[facility] [employer] Allergies No known active allergies Medications * Be aware that medications may not be up to date on this document. Alwaysverify current medications with the patient. Medication Sig Dispensed Refills Start Date End Date Status Calcium-Vitamin D (CALCIUM + D PO) Take 1 tablet by mouth once daily Active vitamin E (TOCOPHERYL) 400 UNIT tablet Active [place]-3 Fatty Acids (FISH OIL PO) Take 1 [...] by mouth once daily Active HYDROcodone-acetami nophen ([place]) 7.5-325 MG tablet 10/31/2023 Active pregabalin (Lyrica) 100 MG capsule Take 1 (one) capsule by mouth 2 times daily 09/17/2023 Active cyanocobalamin (Vitamin B-12) 1000 MCG tablet Take 1 (one) tablet by mouth once daily Active Fe-Succ Ac-B Lgpkn-L-Ga-FA (Irospan 19/10) Take by mouth Active spironolactone [...] Zoster Hzv Vacc Recombinant Inj Im 12/02/2022, Social History Tobacco Use Types Packs/Day Years [...] 11/21/2023 2:36 PM CDT Plan of Treatment Not on file Procedures Procedure Name Priority Date/Time Associated Diagnosis Comments BASIC METABOLIC PANEL (CALCIUM TOTAL) Routine 12/26/2023 7:22 AM CDT HFrEF (heart failure with reduced ejection fraction) ([facility]) from Last 3 Months or Most Recently [...] Comment: REPORT COMMENT: FASTING:YES Test Performed at: [facility] [address] [place] [address] JULIAN MARC MD Blood BLOOD SPECIMEN / Unknown 12/26/2023 7:22 AM CDT 12/26/2023 7:22 AM CDT Deja Meehan CORNER CUTTER MACHINE OPERATOR-GENERAL UTILITY MACHINE OPERATOR LAB - CHEMISTR Y ORDERABLES [facility] [address] [place] [address] from Last 3 Months or Most Recently Relevant to Health Maintenance Advance Directives * Full Code (Latest Code Status on File) Date Activated Date Inactivated Comments 11/05/2023 12:20 AM 11/08/2023 12:28 PM Healthcare Agents on File Name Relationship Healthcare Agent [facility] Communication Radha Mccormick Daughter Power of Chlorine Cells Operator (POA) Care Teams Binding Cutter Relationship Specialty Start Date End Date David Han MD [address] [place] [address] PCP - General Internal Medicine 11/07/23
--- OUTSIDE RECORDS SUMMARY | 2024-06-13 10:52 | XMS_ITS ---
Author Organization [facility] Care Team Providers Care Art Museum Aide Name Role Phone David Han MD Primary Care Provider [phone] Solomon Meyers MD PhD Unavailable [phone] Marisela Hi APRN, BISQUE KILN DRAWER Unavailable [phone] Suly Prabhakar APRN, BISQUE KILN DRAWER Unavailable + [phone] [facility] Status:Enrolled (Active) Start date:05/26/2024 Enrollment date:05/26/2024 Related social drivers of health:Financial Resource Strain, Physical Activity Continued Care and Services Coordination
--- OUTSIDE RECORDS SUMMARY | 2024-06-13 10:52 | XMS_ITS | Encounter Summary ---
Author Organization [facility] Address [address] [place] [place] [address] Phone Care Team Providers Care Bottle Sorter Name Role Phone David Han MD Primary Care Provider [phone]- [phone] Suly Prabhakar APRN, AUTOMATIC TYPEWRITER INSPECTOR Unavailable + [phone] Solomon Meyers MD PhD Unavailable +[phone] Marisela Hi APRN, AUTOMATIC TYPEWRITER INSPECTOR Unavailable [phone] Suly Prabhakar APRN, AUTOMATIC TYPEWRITER INSPECTOR Unavailable + [phone] Reason for Visit * Reason Comments Medication Refill Encounter Details Date Type Department Care Team (Late st Contact Info) Description 10/12/2020 Refill [facility] - Internal Medicine - [place] [address] [place] [address] David Han MD [address] [place] [address] Medication Refill Social History Tobacco Use Types Packs/Day Years Used Date Smoking Tobacco: Never Smokeless Tobacco: Never Alcohol Use Standard Drinks/Week Comments Not Currently 0 (1 standard drink = 0.6 oz pur e alcohol) PHQ-2 Answer Date Recorded Total Score - Questions 1-9 0 06/28 Sexually Active Control Partners Comments Yes Post-menopausal Comments No Sex and Gender Information Value Date Recorded Sex Assigned at Not on file Legal Sex Female 1:44 PM CDT Gender Identity Not on file Sexual Orientation Not on file documented as of this encounter Miscellaneous Notes * Telephone Encounter - Jaylin Terrell RN - 10/12/2020 8:06 AM CDT Please review and sign. documented in this encounter Plan of Treatment Upcoming Encounters Date Type Department Care Team (Late st Contact Info) Description 06/17/2024 8:40 AM TOY ELECTRIC TRAIN REPAIRER Lab [facility] - Internal Medicine [facility] [address] [place] [address] J[place] [facility] 06/24/2024 8:15 AM TOY ELECTRIC TRAIN REPAIRER Office Visit [facility] Internal Medicine [facility] [address] [place] [address] David Han MD [address] [place] [address] 09/13/2024 1:00 PM CDT Office Visit [facility] Group - Cardiology - [place] [address] [place] [address] Suly Prabhakar APRN, AUTOMATIC TYPEWRITER INSPECTOR #2 [facility] [address] [place] [address] 10/25/2024 8:00 AM CDT [facility] Pulmonology & Sleep Medicine - [place] [address] [place] [address] Marisela Hi, ORA, AUTOMATIC TYPEWRITER INSPECTOR #2 [facility] [address] [place] [address] documented as of this encounter Visit Diagnoses Not on filedocumented in this encounter Additional Health Concerns Infection Onset Date Last Indicated Resolved Time COVID - 19 11/26/2021 11/26/2021 12/06/2021 12:1 6 AM CDT COVID - 19 06/16/2023 06/16/2023 06/26/2023 12:1 6 AM TOY ELECTRIC TRAIN REPAIRER Respiratory Rule-Out 06/16/2023 06/16/2023 024 10:28 AM TOY ELECTRIC TRAIN REPAIRER Assessment Noted Time PHQ-9 Depression Total Score: 0 07/26/19 21 9:00 AM CDT documented as of this encounter Care Teams Bottle Sorter Relationship Specialty Start Date End Date David Han MD [address] [place] [address] PCP - General Internal Medicine 01/14/20 Suly Prabhakar APRN, AUTOMATIC TYPEWRITER INSPECTOR #2 [facility] [address] [place] [address] Nurse Practitioner Advanced Practice Nurse 10/29/23 Solomon Meyers MD PhD [address] [place] [address] Sales Representative Sales Manager Interventional Cardiology 12/02/23 Marisela Hi APRN, AUTOMATIC TYPEWRITER INSPECTOR #[address] [facility] [address] [place] [address] Nurse Practitioner Advanced Practice Nurse 01/19/24 Suly Prabhakar APRN, AUTOMATIC TYPEWRITER INSPECTOR #2 [facility], [address] [place] [address] Nurse Practitioner Cardiology 03/24/24 documented as of this encounter
--- OUTSIDE RECORDS SUMMARY | 2024-06-13 10:53 | XMS_ITS | Continuity of Care Document ---
Author Organization [facility] Address [address] [facility] [address] [place] [address] Phone Care Team Providers Care Adult Education Professional Name Role Phone Nolan Dye MD Unavailable Unavailable Allergies, Adverse Reactions, Alerts [...] Encounter Office/outpat ient visit,est, mod [facility], [address] [facility], [place], [place], [id number], [place] tel:[phone] [facility] COLLES FRACTURE CLOSEDFX DISTAL RADIUS NEC-CLJOINT PAIN-FOREARM 2 Hardik [place]. [address] [facility], [address], [place], [place], [id number] , [place]. tel:[phone] Office/outpat ient visit,est, [facility], [address], [id number], [place] [phone] [facility] COLLES FRACTURE CLOSEDFX DISTAL RADIUS NEC-CLJOINT PAIN-FOREARM [address]. [address] [facility], [address], [id number] , [place]. tel: [phone] Office/outpat ient visit,est, [facility], [address], [id number], [place] [phone] [facility] COLLES FRACTURE CLOSEDJOINT PAIN-FOREARM 2 Dye Nolan. [address], [id number] , [place]. tel: [phone] Office/outpat ient visit,est, [facility], [address], [id number], [place] [phone] [facility] COLLES FRACTURE CLOSEDFX DISTAL RADIUS NEC-CLJOINT PAIN-FOREARM 2 Dye Nolan. [address] [address], [place], [place], [id number] , [place]. tel: [phone] Office consultation, [facility], [address] [place] [address], [id number], [place] [phone] [facility] SPRAIN OF WRIST NOS 2 Hardik Francisco. [address], [id number] , [place]. tel: [phone] Family History Family Member Type Diagnosis Age At Onset No Information Payers Payer name Insurance type Covered libertarian ID Cruz bibiana(s) Simpson Twingly [id number] Social History Type Description Quantity Date Captured [...]
[2024-06-13 10:54] VITALS: BP 114/60; PULSE 57; RESP 16; TEMP 37.2; O2SAT 100
--- NOTE | 2024-06-13 11:55 | ED.GENADULT ---
HPI - General Adult General Chief complaint: Upper Respiratory Infection Stated complaint: Body Aches/Sore Throat/Light Headed/Nausea Source: patient Mode of arrival: ambulatory Limitations: no limitations History of Present Illness HPI narrative: Patient presents for evaluation of sick symptoms for last 2-3 days Symptoms include hot flashes, body aches, sinus congestion, thick yellow nasal drainage. chills, cough, SOB, and sore throat. No recent sick contacts to her knowledge. She has an underlying history of CHF and a fib. She is anticoagulated with eliquis. She does not smoke. No leg swelling, vomiting or diarrhea. She has tried OTC cough and cold medication without improvement in her symptoms. Related Data Home Medications ?Medication ?Instructions ?Recorded ?Confirmed ?Last Taken ?Type furosemide 40 mg tablet 40 mg PO DAILY 05/17/20 10/08/22 Unknown History ferrous sulfate 325 mg (65 mg 325 mg PO DAILY 07/05/22 10/08/22 Unknown History iron) tablet hydrocodone 7.5 mg-acetaminophen tablet 01/04/23 Unknown History 325 mg tablet omeprazole 20 mg capsule,delayed mg 01/04/23 Unknown History release pregabalin 50 mg capsule mg 01/04/23 Unknown History topiramate 100 mg tablet mg 01/04/23 Unknown History alendronate 70 mg tablet mg PO 01/03/24 Unknown History amiodarone 200 mg tablet mg 01/03/24 Unknown History apixaban 5 mg tablet (Eliquis) mg 01/03/24 Unknown History lisinopril 2.5 mg tablet mg 01/03/24 Unknown History topiramate 100 mg tablet mg 01/03/24 Unknown History Allergies Allergy/AdvReac Type Severity Reaction Status Date / Time No Known Allergies Allergy Verified 06/13/24 11:02 Review of Systems Review of Systems: CONSTITUTIONAL: Reports hot flashes and chills EYES: Denies visual changes, redness, or discharge. ENT: Reports sinus congestion, nasal drainage, sore throat. CARDIOVASCULAR: Denies chest pain, palpitations, or edema. RESPIRATORY: Reports cough and shortness of breath GASTROINTESTINAL: Denies abdominal pain, nausea, vomiting, or diarrhea. GENITOURINARY: Denies dysuria or hematuria. SKIN: Denies rash or itching. MUSCULOSKELETAL: Reports generalized body aches NEUROLOGIC: Denies headache, numbness, dizziness, or weakness. PSYCHIATRIC: Denies anxiety or depression. PMFSH Past Medical History Medical History Chronic anticoagulation since Afib diagnosis summer 2023 Heart failure History of atrial fibrillation cardioverted @ [facility] summer 2023 Arthritis Surgical History Surgical History Hx of cholecystectomy History of knee replacement Social History Social History Smoking status: Never smoker Alcohol intake: never Living arrangements: with family Additional living arrangements comments: Exam Narrative: GENERAL: Well-appearing, well-nourished, and in no acute distress. HEAD: Normocephalic, atraumatic. EYES: PERRLA and EOMI. ENT: Nares clear, no rhinorrhea or epistaxis. Mucous membranes moist. Oropharynx without tonsillar hypertrophy exudate or other lesions. Bilateral TMs pearly russell nonbulging NECK: Supple. No adenopathy or masses. No carotid bruits or JVD CHEST: Occasional cough present. Clear to auscultation. No respiratory distress. No wheezes rales or rhonchi HEART: Regular rate and rhythm. No murmur heard. Normal peripheral pulses. ABDOMEN: Soft, nontender, nondistended, normal active bowel sounds. EXTREMITIES: Normal range of motion. No edema. SKIN: Warm, dry, no rash. NEURO: No focal deficits. Alert and oriented x3. PSYCH: Normal mood and affect. Course Course Emergency Course: This is a 68-year-old female who presented for evaluation of sick symptoms. Chest x-ray negative. Flu and COVID negative. She meets criteria for bacterial sinusitis based upon mucopurulent nature for discharge. Will discharge with Augmentin. Increase hydration. [id number] agents for symptom management. Follow up with primary provider. Go to the ER for worsening symptoms. Patient in agreement with plan of care. Level of Care: Express Care Visit Vital Signs Vital signs: Vital Signs Temperature 37.2 C 06/13/24 10:54 Pulse Rate 57 L 06/13/24 10:54 Respiratory Rate 16 06/13/24 10:54 Blood Pressure 114/60 06/13/24 10:54 Pulse Oximetry 100 06/13/24 10:54 Oxygen Delivery Room Air 06/13/24 10:54 Temperature 37.2 C 06/13/24 10:54 Pulse Rate 57 L 06/13/24 10:54 Respiratory Rate 06/13/24 10:54 Blood Pressure 114/60 06/13/24 10:54 Pulse Oximetry 06/13/24 10:54 Oxygen Delivery Room Air 06/13/24 10:54 Medical Decision Making Vital Signs Vital Signs: Vital Signs Temperature 37.2 C 06/13/24 10:54 Pulse Rate 57 L 06/13/24 10:54 Respiratory Rate 06/13/24 10:54 Blood Pressure 114/60 06/13/24 10:54 Pulse Oximetry 06/13/24 10:54 Oxygen Delivery Room Air 06/13/24 10:54 Temperature 37.2 C 06/13/24 10:54 Pulse Rate 57 L 06/13/24 10:54 Respiratory Rate 06/13/24 10:54 Blood Pressure 114/60 06/13/24 10:54 Pulse Oximetry 06/13/24 10:54 Oxygen Delivery Room Air 06/13/24 10:54 Imaging Data Radiologist's impression: CHEST RADIOGRAPH, PA AND LATERAL CLINICAL HISTORY: cough and SOB . COMPARISON: 10/2023 TECHNIQUE: PA and lateral views of the chest. FINDINGS The cardiomediastinal silhouette is unremarkable. The lungs are clear. Visualized osseous structures and soft tissues are unremarkable. IMPRESSION: No focal infiltrate or effusion. Discharge Plan Discharge Clinical Impression: Sinusitis Patient Disposition: Home, Self-Care Condition: Stable Instructions: Antibiotic Form, Sinusitis (ED) Patient Language: Japanese Prescriptions: New amoxicillin-pot clavulanate 875-125 mg tablet 1 tablet PO Q12H Qty: 20 0RF No Action ferrous sulfate 325 mg (65 mg iron) tablet 325 mg PO DAILY hydrocodone-acetaminophen 7.5-325 mg tablet omeprazole 20 mg capsule,delayed release(DR/EC) topiramate 100 mg tablet pregabalin 50 mg capsule amiodarone 200 mg tablet alendronate 70 mg tablet PO topiramate 100 mg tablet lisinopril 2.5 mg tablet Eliquis 5 mg tablet furosemide 40 mg tablet 40 mg PO DAILY Follow-up/Referrals: Guille,David Leyva MD [Primary Care Provider] - Time of Disposition: 12:19
[2024-06-13 12:25] LABS: EDCOVIDSCREEN Negative (Negative); EDINFLUASCREEN Negative (Negative); EDINFLUBSCREEN Negative (Negative)
== END 2024-06-13 12:20 | disposition home or self-care (01) ==
PROVIDERS: Emergency Provider Nurse Practitioner; PCP Internal Medicine
DX: J32.9 Chronic sinusitis, unspecified (principal); Z20.822 Contact with and (suspected) exposure to COVID-19; I48.91 Unspecified atrial fibrillation; I50.9 Heart failure, unspecified; Z79.01 Long term (current) use of anticoagulants
CPT/HCPCS: 71046; 87426; 87804; 99213; G0463

== ENCOUNTER 2024-07-10 08:17 | Emergency (ER) | payer MEDICARE, MEDICAID, SELFPAY ==
--- OUTSIDE RECORDS SUMMARY | 2024-07-10 08:21 | XMS_ITS | Encounter Summary ---
Author Organization [facility] Address [address] [place] [address] Phone Care Team Providers Care Baggage Agent Supervisor Name Role Phone David Han MD Primary Care Provider [phone] Suly Prabhakar APRN, ASPHALT TAMPING MACHINE OPERATOR Unavailable + [phone] Solomon Meyers MD PhD Unavailable [phone] Marisela Hi APRN, ASPHALT TAMPING MACHINE OPERATOR Unavailable [phone] Suly Prabhakar APRN, ASPHALT TAMPING MACHINE OPERATOR Unavailable + [phone] Reason for Visit * Reason Comments Medication Refill Encounter Details Date Type Department Care Team (Late st Contact Info) Description 10/14/2023 Refill [facility] - Internal Medicine - [place] [address] [place] [address] David Han MD [address] [place] [address] Medication Refill Social History Tobacco Use Types Packs/Day Years Used Date Smoking Tobacco: Never Passive Smoke Exposure: Never Smokeless Tobacco: Never Alcohol Use Standard Drinks/Week Comments Not Currently 0 (1 standard drink = 0.6 oz pur e alcohol) [facility] Utilities Answer Date Recorded In the past 12 months has [employer], oil, or [employer] threatened to shut off services in your [...] often do you attend chur ch or jehovah's witness services? 1 to 4 times per year 09/16/2023 Do you belong to any clubs o r organizations such as gnosticism groups, unions, fraternal or athletic groups, or [...] Total Score - Questions 1-9 0 04/28 [facility] - Occupational [...] place to sleep or slept in a long term (including now)? No 09/16/2023 Education Answer Date [...] 09/17/23 Office Visit David Han MD [facility] 06/16/23 Office Visit David Han MD [facility] 03/05/23 Office Visit David Han MD [facility] 12/02/22 Office Visit David Han MD [facility] 10/15/22 Office Visit David Han MD [facility] Showing recent visits within past 365 days and meeting all other requirements Future Appointments Date Type Provider Dept 12/18/23 Appointment David Han MD [facility] Showing future appointments within next 90 days and meeting all other requirements documented in this encounter Plan of Treatment Upcoming Encounters Date Type Department Care Team (Late st Contact Info) Description 07/28/2024 7:15 AM CDT [facility] [address] [place] [address] David Han MD [address] [place] [address] 09/13/2024 1:00 PM CDT Office Visit [facility] - Cardiology [facility] [address] [place] [address] Suly Prabhakar APRN, ASPHALT TAMPING MACHINE OPERATOR #2 [facility] [address] [place] [address] 09/22/2024 8:00 AM CDT Lab [facility] - Internal Medicine - [place] [address] [place] [address] [facility] 09/30/2024 9:30 AM CDT Office Visit [facility] - Internal Medicine [facility] [address] [place] [address] David Han MD [address] [facility] [place] [address] 10/25/2024 8:00 AM CDT Office Visit [facility] - Pulmonology & Sleep Medicine [facility] [address] [place] [address] Marisela Hi APRN, ASPHALT TAMPING MACHINE OPERATOR #[address] [facility] [address] [place] [address] documented as of this encounter Visit Diagnoses Not on filedocumented in this encounter Additional Health Concerns Assessment Noted Time PHQ-9 Depression Total Score: 0 07/26/19 21 9:00 AM CDT documented as of this encounter Care Teams Baggage Agent Supervisor Relationship Specialty Start Date End Date David Han MD [address] [place] [address] PCP - General Internal Medicine 01/14/20 Suly Prabhakar APRN, ASPHALT TAMPING MACHINE OPERATOR #2 [facility] [address] [place] [address] Nurse Practitioner Advanced Practice Nurse 10/29/23 Solomon Meyers MD PhD [address] [place] [id number] Director Engineering Interventional Cardiology 12/02/23 Marisela Hi APRN, ASPHALT TAMPING MACHINE OPERATOR #[address] [facility] [address] [place] [address] Nurse Practitioner Advanced Practice Nurse 01/19/24 Suly Prabhakar, [employer] DIRECTOR, ASPHALT TAMPING MACHINE OPERATOR #2 [facility] [address] [place] [address] Nurse Practitioner Cardiology 03/24/24 documented as of this encounter
--- OUTSIDE RECORDS SUMMARY | 2024-07-10 08:21 | XMS_ITS | Encounter Summary ---
Author Organization [facility] Address [address] [place] [address] Phone Care Team Providers Care Prepress Proofer Name Role Phone David Han MD Primary Care Provider [phone] Suly Prabhakar APRN, STUDENT UNION CONSULTANT Unavailable + [phone] Solomon Meyers MD PhD Unavailable [phone] Marisela Hi APRN, STUDENT UNION CONSULTANT Unavailable [phone] Suly Prabhakar APRN, STUDENT UNION CONSULTANT Unavailable + [phone] Reason for Visit * Reason Comments Medication Refill Encounter Details Date Type Department Care Team (Late st Contact Info) Description 09/01/2023 Refill [facility] - Internal Medicine - [place] [address] [place] [address] David Han MD [address] [place] [address] Medication Refill Social History Tobacco Use Types Packs/Day Years Used Date Smoking Tobacco: Never Passive Smoke Exposure: Never Smokeless Tobacco: Never Alcohol Use Standard Drinks/Week Comments Not Currently 0 (1 standard drink = 0.6 oz pur e alcohol) [facility] Utilities Answer Date Recorded In the past 12 months has [employer], oil, or [employer] threatened to shut off services in your [...] often do you attend chur ch or restorationist services? Never 07/21/2023 Do you belong to any clubs o r organizations such as alevism groups, unions, fraternal or athletic groups, or [...] Total Score - Questions 1-9 0 04/28 [facility] Stress Questionnaire Answer Date Recorded [...] place to sleep or slept in a retirement (including now)? No 07/21/2023 Education Answer Date [...] Dept 06/16/23 Office Visit David Han MD [facility] 03/05/23 Office Visit David Han MD [facility] 12/02/22 Office Visit David Han MD [facility] 10/15/22 Office Visit David Han MD [facility] Showing recent visits within past 365 days and meeting all other requirements Future Appointments Date Type Provider Dept 09/17/23 Appointment David Han MD [facility] [place] Showing future appointments within next 90 days and meeting all other requirements documented in this encounter Plan of Treatment Upcoming Encounters Date Type Department Care Team (Late st Contact Info) Description 07/28/2024 7:15 AM CDT Appointment [facility] Mammography [address] [place] [address] David Han MD [address] [place] [address] 09/13/2024 1:00 PM CDT Office Visit [facility] - Cardiology [facility] [address] [place] [address] Suly Prabhakar APRN, STUDENT UNION CONSULTANT #2 [facility] [address] [place] [address] 09/22/2024 8:00 AM CDT Lab [facility] - Internal Medicine [place] [address] [place] [address] [facility] [place] 09/30/2024 9:30 AM CDT [facility] [address] [place] [address] David Han MD [address] [place] [address] 10/25/2024 8:00 AM CDT Office Visit [facility] - Pulmonology & Sleep Medicine - [place] [address] [place] [address] Marisela Hi APRN, STUDENT UNION CONSULTANT #2 [facility] [address] [place] [address] documented as of this encounter Visit Diagnoses Not on filedocumented in this encounter Additional Health Concerns Assessment Noted Time PHQ-9 Depression Total Score: 0 07/26/19 21 9:00 AM CDT documented as of this encounter Care Teams Prepress Proofer Relationship Specialty Start Date End Date David Han MD [address] [place] [address] PCP - General Internal Medicine 01/14/20 Suly Prabhakar APRN, STUDENT UNION CONSULTANT #2 [facility] [address] [place] [address] Nurse Practitioner Advanced Practice Nurse 10/29/23 Solomon Meyers MD PhD [address] [place] [address] Christmas Tree Grader Interventional Cardiology 12/02/23 Marisela Hi APRN, STUDENT UNION CONSULTANT #2 [facility] [address] [place] [address] Nurse Practitioner Advanced Practice Nurse 01/19/24 Suly Prabhakar APRN, STUDENT UNION CONSULTANT #2 [facility] [address] [place] [address] Nurse Practitioner Cardiology 03/24/24 documented as of this encounter
--- OUTSIDE RECORDS SUMMARY | 2024-07-10 08:21 | XMS_ITS | Data Portability ---
Author Organization [facility] [place] Address [address] [place] [address] Care Team Providers Care Exhibitor Sales Name Role Phone NATO DUKES Primary Care Provider Assessment Encounter Date Assessment Date Assessment LastModified by Organization Details LastModified Time 07/26/2020 07/26/2020 Annual gynecological exam performed. Patient will come back in a year unless there are new symptoms. [email or web address] Not available 07/26/2020 11:20:30 Plan of Treatment Reminders Order Date Submit Date Provider Last Modified By Organization Details Last Modified Time Details Appointments None recorded. Lab None recorded. Referral None recorded. Procedures None recorded. Surgeries None recorded. Imaging DEXA, axial skeleton + vertebral fracture assessment 2020 021 [facility], [address] [place], [address], 05:00:47 Medication Orders None recorded. Patient TargetsNo targets recorded. Patient InstructionsNo instructions recorded. Reason for Referral None Reported. Problems Name Problem SNOMED Code Status Onset Date Resolution Date Notes Provider Name and Address Organization Details Recorded Time Diabetes mellitus 30514887 Active 2020 Urszula fairchild [facility] 11:39:58 Hypertensive disorder 33930450 Active 2020 Urszula fairchild [facility] 11:40:07 Problem Notes None recorded. Procedures Surgical History Date Name Laterality Status Provider Name and Address Organization Details Recorded Time 07/27/19 21 Date of Last Pap Smear completed Urszula Lux [facility] 07/26/2020 13:04:27 04/28/19 17 total knee replacement completed [facility] 07/26/2020 17:41:36 04/28/19 10 abdominoplasty completed [facility] 07/26/2020 17:41:02 04/28/19 08 Gastric Bypass completed [facility] 07/26/2020 17:40:51 04/28/19 00 Breast reduction completed [facility] 07/26/2020 17:41:24 04/28/18 89 Partial Hysterectomy completed [facility] 07/26/2020 17:40:41 04/28/18 79 Tubal Ligation completed [facility] 07/26/2020 17:40:30 Imaging Results None recorded. [...] Updated DateTime 07/26/2020 161.29 cm 33.7 kg/m2 22366.33 g 120 mm[Hg] 79 mm[Hg] Urszula Lux [facility] 11:24:29 Social History Question Answer Notes LastModified by Organizat ion Details LastModified Time Tobacco Smoking Status Never Smoker Urszula Lux [facility] 07/26/2020 17:40:08 What Is Your Level Of Alcohol Consumption? None Information not available 07/26/2020 Are You Blind Or Do You Have Difficulty Seeing? No Information n ot available 07/26/2020 What Is Your Level Of Caffeine Consumption? Heavy [email or web address] Information not available 07/26/2020 In The 14 Days Before Symptom Onset, Have You Had Close Contact With A Laboratory-confirm ed COVID-19 While That Case Was Ill? No [email or web address] Information n ot available 07/26/2020 In The 14 Days Before Symptom Onset, Have You Had Close Contact With A Person Who Is Under Investigation For COVID-19 While That Person Was Ill? No [email or web address] Information not available 07/26/2020 Have You Been To An Area Known To Be High Risk For COVID-19? No [email or web address] Information not available 07/26/2020 Are You Deaf Or Do You Have Serious Difficulty Hearing? No [email or web address] Information not available 07/26/2020 What Type Of Diet Are You Following? REGULAR [email or web address] Information n ot available 07/26/2020 Do You Use Your Seat Belt Or Car Seat Routinely? Yes [email or web address] Information not available 07/26/2020 Do You Have Smoke And Carbon Monoxide Detectors In Your Home? Yes [email or web address] Information not available 07/26/2020 Do You Feel Stressed (tense, Restless, Nervous, Or Anxious, Or Unable To Sleep At Night)? [id number] [email or web address] Information not available 07/26/2020 Do You Use Any Illicit Or Recreational Drugs? No [email or web address] Information not available 07/26/2020 Do You Use Sunscreen Routinely? Yes Information not available 07/26/2020 Has Tobacco Cessation Counseling Been Provided? No [email or web address] Information not available 07/26/2020 Do You Or Have You Ever Used Any Other Forms Of Tobacco Or Nicotine? No [email or web address] Information not available 07/26/2020 Sex: Unknown Functional Status Question Answer Note LastModified by Organizat ion Details LastModified Time Are you able to walk? YESWOREST [email or web address] Information not available 07/26/2020 What is your exercise level? Occasional [email or web address] Information not available 07/26/2020 Mental Status None recorded. Family History Relationship Description Onset Age of this Age Resolved Age Notes LastModified by Organization Details LastModified Time Mother Diabetes mellitus [email or web address] Not available 07/26 17:39:22 Mother Hypercholest erolemia [email or web address] Not available 07/26 17:39:30 Mother Hypertensive disorder [email or web address] Not available 07/26 17:39:40 Medical History Condition [...] SNOMED-CT Code Diagnosis ICD10 Code Diagnosis Note [id number] Abi Mccoy , [facility] [address] [address] 07/26/2020 11:07:19 07/26/2020 16:22:25 Gynecologic examination 53673404 Z01.419 Take Calcium with Vitamin D 12-1500mg daily. Do monthly self breast exams. It is advised to get annual flu shot in the fall and she could obtain at [facility] or [facility] care clinic. If you haven't received the [...] x 11yrs (second spouse) Postmenopa usal osteopenia [id number] M85.80 Health Concerns Section Related Observation LastModified by Organization Detai ls LastModified Time None Recorded Concern Status LastModified by Organization Details LastModified Time None Recorded Advance Directives Directive None Recorded Payers Encounter Date Sequence Insurance Name Policy Number Policy Dick Covered Member ID Dick Member ID Guarantor Name 07/26/2020 1 [employer] (MEDICARE REPLACEMENT HMO) [id number] L Janneth Cummins [id number] Janneth Cummins Notes Date Note Type Note Provider Name and Address Organization Details Recorded Time 07/26/2020 text/html 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 07/26/2020 12:12:19 OBGyn Episode Ob Episode Information Episode Created Date Number of Fetuses Patient Bloodtype Patient rh Status Prepregnancy Weight lbs Domestic Partner Domestic Partner Phone Father Name Mold Worker Status 07/27/19 21 1 CLOSED Fetus Data [...] Domestic Partner Domestic Partner Phone Father Name Mold Worker Status 07/27/19 21 1 CLOSED Fetus Data [...] Domestic Partner Domestic Partner Phone Father Name Mold Worker Status 07/27/19 21 1 CLOSED Fetus Data [...] Domestic Partner Domestic Partner Phone Father Name Mold Worker Status 07/27/19 21 1 CLOSED Fetus Data [...] Domestic Partner Domestic Partner Phone Father Name Mold Worker Status 07/27/19 21 1 CLOSED Fetus Data [...] Domestic Partner Domestic Partner Phone Father Name Mold Worker Status 07/27/19 21 1 CLOSED Fetus Data [...]
--- OUTSIDE RECORDS SUMMARY | 2024-07-10 08:21 | XMS_ITS | Encounter Summary ---
Author Organization [facility] Address [address] [place] [address] Phone Care Team Providers Care Search Lead Name Role Phone David Han MD Primary Care Provider [phone] Solomon Meyers MD PhD Unavailable [phone] Marisela Hi APRN, FRENCH PROFESSOR Unavailable [phone] Suly Prabhakar TEAM TRUCK DRIVER, FRENCH PROFESSOR Unavailable + [phone] Encounter Details Date Type Department Care Team (Late st Contact Info) Description 06/21/2024 Results Follow-Up [facility] Adult Pediatric Inpatient Virtual [address] [place] [id number] Suly Prabhakar, TEAM TRUCK DRIVER, FRENCH PROFESSOR #2 [facility], [address] [place] [address] Social History Tobacco Use Types Packs/Day Years Used Date Smoking Tobacco: Never Passive Smoke Exposure: Never Smokeless Tobacco: Never Alcohol Use Standard Drinks/Week Comments Not Currently 0 (1 standard drink = 0.6 oz pur e alcohol) [facility] Utilities Answer Date Recorded In the past 12 months has e electric, gas, oil, or water company threatened to shut off services in your home? No 06/21/2024 Social Connection and Isolat ion Panel [NHANES] Answer Date Recorded In a typical week, how many times do you talk on the phone with family, friends, or neighbors? More than three times a week 06/21/2024 How often do you get togethe r with friends or relatives? Twice a week 06/21/2024 How often do you attend chur ch or zoroastrian services? 1 to 4 times per year 06/21/2024 Do you belong to any clubs o r organizations such as buddhist groups, unions, fraternal or athletic groups, or school groups? Yes 06/21/2024 How often do you attend meet ings of the clubs or organizations you belong to? Never 06/21/2024 Are you , , di vorced, , never , or living with a partner? 06/21/2024 AUDIT-C Answer Date Recorded Q1: How often do you have a drink containing alcohol? Never 06/21/2024 Q2: How many drinks containi ng alcohol do you have on a typical day when you are drinking? Patient does not drink Q3: How often do you have si x or more drinks on one occasion? Never 06/21/2024 Overall Financial Resource Strain (CARDIA) Answe r Date Recorded How hard is it for you to pa y for the very basics like food, housing, medical care, and heating? Somewhat hard 06/21/2024 PHQ-2 Answer Date Recorded Total Score - Questions 1-9 0 05/30 [facility]ational [facility] Questionnaire Answer Date Recorded Do you feel stress - tense, restless, nervous, or anxious, or unable to sleep at night because your mind is troubled all the time - these days? Not at all 06/21/2024 Exercise Vital Sign Answer Date Recorde d On average, how many days pe r week do you engage in moderate to strenuous exercise (like a brisk walk)? 7 days 06/21/2024 On average, how many minutes do you engage in exercise at this level? 30 min 06/21/2024 Hunger Vital Sign Answer Date Recorded Within the past 12 months, y ou worried that your food would run out before you got the money to buy more. Sometimes true Within the past 12 months, t he food you bought just didn't last and you didn't have money to get more. Never true PRAPARE - Transportation Answer Date Re corded In the past 12 months, has l ack of transportation kept you from medical appointments or from getting medications? No 05/30 In the past 12 months, has l ack of transportation kept you from meetings, work, or from getting things needed for daily living? No 06/21/2024 Housing Stability Vital Sign Answer Gene e [...] place to sleep or slept in a detention (including now)? No 09/16/2023 Housing Stability Vital Sign Answer Gene e Recorded In the last 12 months, was t here a time when you were not able to pay the mortgage or rent on time? No 06/21/2024 In the past 12 months, how m any times have you moved where you were living? 1 06/21/2024 At any time in the past 12 m [facility], were you homeless or living in a detention (including now)? No 06/21/2024 Education Answer Date Recorded What is the [...] on file documented as of this encounter Functional Status * Audit-C Score Answer Date of Assessment Author 0 06/21/2024 8:18 AM HOG OPERATOR [employer], System Background * Q1: How often do you have a drink containing alcohol? Answer Date of Assessment Author Never 06/21/2024 8:18 AM HOG OPERATOR [employer] System Background * Q2: How many drinks containing alcohol do you have on a typical day when you are drinking? Answer Date of Assessment Author Patient does not drink 06/21/2024 8:18 AM HOG OPERATOR [employer], System Background * Q3: How often do you have six or more drinks on one occasion? Answer Date of Assessment Author Never 06/21/2024 8:18 AM HOG OPERATOR [employer], System Background * Question Answer Date of Assessment Author Little interest or pleasure in doing things Not at all 06/24/2024 7:55 AM Carolyn Nolen CMA Feeling down, depressed, or hopeless Not at all 06/24/2024 7:55 AM Carolyn Nolen CMA * Over the past 2 weeks, how often have you been bothered by any of the following problems? Question Answer Date of Assessment Author Patient Health Questionnaire -2 Score 0 06/24/2024 7:55 AM Carolyn Nolen CMA documented as of this encounter Plan of Treatment Upcoming Encounters Date Type Department Care Team (Late st Contact Info) Description 07/28/2024 7:15 AM CDT Appointment [facility] Mammography [address] [place] [address] David Han MD [address] [place] [address] 09/13/2024 1:00 PM CDT Office Visit [facility] Cardiology [facility] [address] [place] [id number] Suly Prabhakar, TEAM TRUCK DRIVER, FRENCH PROFESSOR #2 [facility], [facility] [address] [place] [address] 09/22/2024 8:00 AM CDT Lab [facility] Internal Medicine [facility] [address] [place] [address] Jaret Lance 09/30/2024 9:30 AM CDT Office Visit [facility] Internal Medicine [facility] [address] [place] [phone] David Han MD [address] [place] [address] 10/25/2024 8:00 AM CDT Office Visit [facility] - Pulmonology & Sleep Medicine [facility] [address] [place] [address] Marisela Hi APRN, FRENCH PROFESSOR #2 [facility] [address] [place] [address] documented as of this encounter Visit Diagnoses Not on filedocumented in this encounter Additional Health Concerns Assessment Noted Time PHQ-9 Depression Total Score: 0 11/18/19 11:11 AM CDT documented as of this encounter Care Teams Search Lead Relationship Specialty Start Date End Date David Han MD [address] [address] PCP - General Internal Medicine 01/14/20 Solomon Meyers MD PhD [address] [place] [address] Single Corner Cutter Interventional Cardiology 12/02/23 Mraisela Hi APRN, FRENCH PROFESSOR #2 [facility] [address] [place] [address] Nurse Practitioner Advanced Practice Nurse 01/19/24 Suly Prabhakar APRN, FRENCH PROFESSOR #[address] [facility], [facility] [address] [place] [address] Nurse Practitioner Cardiology 03/24/24 documented as of this encounter
--- OUTSIDE RECORDS SUMMARY | 2024-07-10 08:21 | XMS_ITS | Encounter Summary ---
Author Organization [facility] Address [address] [place] [address] Phone Care Team Providers Care Corporate Law Assistant Name Role Phone David Han MD Primary Care Provider [phone] Celia Bill PTA Unavailable Unavailable Joann Tovar Unavailable [phone] Jocy Mooney PT Unavailable Unavailable Maksim Quiroga MD Unavailable Encounter Details Date Type Department Care Team (Late st Contact Info) Description 09/25/2023 Telephone [facility] Bone Marrow Transplant [address] 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 file Not on file Not on file documented as of this encounter Plan of Treatment Not on file documented as of this encounter Visit Diagnoses Not on filedocumented in this encounter Care Teams Corporate Law Assistant Relationship Specialty Start Date End Date David Han MD [address] [place] [address] PCP - General Internal Medicine 01/13/17 Celia Bill, HOT STRIP MILL INSPECTOR Physical Therapist Physical Therapy 03/31/17 Joann Tovar PA [address] [place] [address] [place] [address] Referring Physician Orthopedic Surgery 04/01/17 Jocy Mooney, PT Physical Therapist Physical Therapy 04/23/17 Maksim Quiroga MD [address] [address] Medical Oncologist/Vocal Music Teacher Medical Oncology 09/25/23 documented as of this encounter
--- OUTSIDE RECORDS SUMMARY | 2024-07-10 08:21 | XMS_ITS | Clinical Summary ---
Author Organization [facility] Building [facility] Address [address] [place] [address] Care Team Providers Care Deaf Teacher Name Role Phone David Han MD Primary Care Provider [phone] Celia Bill MCAT TUTOR Unavailable Unavailable Joann Tovar Unavailable [phone] Jocy Mooney PT Unavailable Unavailable Maksim Quiroga MD Unavailable [phone] Allergies No known active allergies Medications calcium-vitamin [...] tabletIndicatio ns:Multiple myeloma not having achieved remission (HCC) Take 1 tablet (5 mg total) by mouth 2 (two) times a day 09/17/2023 Active Klor-Con M20 20 mEq CR tabletIndicatio ns:Multiple myeloma not having achieved remission (HCC) Take 1 tablet (20 mEq total) by mouth daily as needed 08/18/2023 Active lisinopriL (PRINIVIL,ZESTR IL) 2.5 mg tabletIndicatio ns:Multiple myeloma not having achieved remission (HCC) Take 1 tablet (2.5 mg total) by mouth daily Active amiodarone (PACERONE) 100 mg tablet Take 1 tablet (100 mg total) by mouth daily Active levothyroxine (SYNTHROID) 25 mcg tablet Take 1 tablet (25 mcg total) by mouth daily 06/24/2024 Active metoprolol XL (TOPROL-XL) 25 mg extended release tablet Take 0.5 tablets (12.5 mg total) by mouth daily 06/24/2024 Active pregabalin (LYRICA) 100 mg capsule Take 1 capsule (100 mg total) by mouth 2 (two) times a day 03/31/2024 Active spironolactone (ALDACTONE) 25 mg tablet Take 1 tablet (25 mg total) by mouth daily 10/21/2023 Active HYDROcodone-dennise taminophen (NORCO) 7.5-325 mg per tablet Take 1 tablet by mouth every 6 (six) hours as needed 06/25/2024 Active furosemide (LASIX) 40 mg tablet Take 1 tablet (40 mg total) by mouth daily 06/06/2024 Active empagliflozin (JARDIANCE) 10 mg tablet Take 1 tablet (10 mg total) by mouth daily 11/13/2023 Active Hospital, Clinic, or Other Facility Administered Medication Ordered Dose Route Frequency Start Date End Date Status lidocaine (XYLOCAINE) 20 mg/mL (2 %) injection 3 mLIndications:Admini stration of Local Anesthesia 3 mL One-Time Injection 06/29/2024 5 Ended lidocaine (XYLOCAINE) 20 mg/mL (2 %) injection 3 mLIndications:Admini stration of Local Anesthesia 3 mL One-Time Injection 06/29/2024 5 Ended methylPREDNISolone acetate (DEPO-medrol) injection 80 mgIndications:Insuff iciency of right rotator cuff,Primary osteoarthritis of left shoulder 80 mg intra-artic One-Time Injection 06/29/2024 5 Ended methylPREDNISolone acetate (DEPO-medrol) injection 80 mgIndications:Insuff iciency of right rotator cuff,Primary osteoarthritis of left shoulder 80 mg intra-artic One-Time Injection 06/29/2024 5 Ended Active Problems Problem Noted Date Diagnosed Date [...] ear Assessment & Plan (06/19/2020 9:54 AM BILINGUAL RESEARCH INTERVIEWER): MRI IACs - call with results and medically clear for hearing aids based on these findings Consider BiCROS versus Cochlear implant History of diabetes mellitus 04/03/2018 Assessment & Plan (04/03/2018 10:14 AM BILINGUAL RESEARCH INTERVIEWER): Discussed options and will add GLP-1 analog [...] exercise. Assessment & Plan (06/27/2018 4:18 PM BILINGUAL RESEARCH INTERVIEWER): Reviewed calorie restriction based on BMR as previously detailed. Reviewed recommendation/goal of >/= 150 minutes/week moderate-intensity aerobic exercise. Asked to keep detailed food diary for at least 1 week and bring to next visit and/or continue tracking on phone. Assessment & Plan (05/08/2018 8:28 AM BILINGUAL RESEARCH INTERVIEWER): Reviewed calorie restriction based on BMR as previously detailed. Reviewed recommendation/goal of >/= 150 minutes/week moderate-intensity aerobic exercise. Asked to keep detailed food diary for at least 1 week and bring to next visit and/or continue tracking on phone. Assessment & Plan (04/03/2018 10:09 AM BILINGUAL RESEARCH INTERVIEWER): Reviewed calorie restriction based on BMR as previously detailed. Reviewed recommendation/goal of >/= 150 minutes/week moderate-intensity aerobic exercise. Asked to keep detailed food diary for at least 1 week and bring to next visit and/or continue tracking on phone. Assessment & Plan (03/12/2018 11:48 AM BILINGUAL RESEARCH INTERVIEWER): Discussed that weight loss will require calorie [...] IBW/day. Assessment & Plan (06/27/2018 4:18 PM BILINGUAL RESEARCH INTERVIEWER): Continue low-carb (<150 g/day), low-glycemic diet. Stay off of semaglutide. Assessment & Plan (05/08/2018 8:29 AM BILINGUAL RESEARCH INTERVIEWER): Continue low-carb (<150 g/day), low-glycemic diet. Referred to ADA and [employer] websites for additional information on topics including glycemic index/carbohydrate choices, protein sources. Increase semaglutide to 0.5 mg weekly. Assessment & Plan (04/03/2018 10:13 AM BILINGUAL RESEARCH INTERVIEWER): Continue low-carb (<150 g/day), low-glycemic diet. Reviewed importance of adequate protein intake of 1-1.2 g/kg IBW/day. Discussed that it does not appear she is getting to much protein, but encouraged her to monitor. Assessment & Plan (03/12/2018 11:49 AM BILINGUAL RESEARCH INTERVIEWER): Discussed recent A1c 5.6 is right at the upper limit of normal. Discussed insulin resistance including affect on weight and risk for progression to diabetes. Recommended low-carb (< 150 g/day), low-glycemic diet; choose whole grains and avoid more highly processed carbohydrates. Discussed potential benefits of this w/r/t gut microbiome. Reviewed importance of adequate protein intake of 1-1.2 g/kg IBW/day. Referred to ADA and [employer] websites for additional information on topics including glycemic index/carbohydrate choices, protein sources. Snoring 03/12/2018 Assessment & Plan (03/12/2018 11:50 AM BILINGUAL RESEARCH INTERVIEWER): Discussed importance of adequate sleep; good sleep [...] ordered. Assessment & Plan (06/27/2018 4:19 PM BILINGUAL RESEARCH INTERVIEWER): Obesity is improving with treatment. Behavioral treatment: have recommended counseling.. Diet interventions: as noted. Regular aerobic exercise program discussed. Assessment & Plan (05/08/2018 8:29 AM BILINGUAL RESEARCH INTERVIEWER): Obesity is unchanged. Diet interventions: as noted. Regular aerobic exercise program discussed. Pharmacotherapy as ordered. Titrate up on topiramate per pain management. Assessment & Plan (04/03/2018 10:15 AM BILINGUAL RESEARCH INTERVIEWER): Obesity is unchanged. Behavioral treatment: have recommended counseling.. Diet interventions: as noted. Regular aerobic exercise program discussed. Pharmacotherapy as ordered. Assessment & Plan (03/12/2018 11:53 AM BILINGUAL RESEARCH INTERVIEWER): Obesity is unchanged. General weight loss/lifestyle modification [...] appointment. Assessment & Plan (06/27/2018 4:20 PM BILINGUAL RESEARCH INTERVIEWER): BP improved today. Check BMP on DENNISE-I. Assessment & Plan (05/08/2018 8:30 AM BILINGUAL RESEARCH INTERVIEWER): Restart lisinopril 5mg. F/U PCP. Assessment & Plan (03/12/2018 11:55 AM BILINGUAL RESEARCH INTERVIEWER): BP elevated today. She is not on an DENNISE-I and I do not see history of intolerance -- recommended she f/u with PCP and would consider this. Reviewed role of diet, exercise, weight loss in controlling blood pressure. Recommended low sodium/DASH diet. Continue current medications. Weight gain status post gastric bypass 8 Assessment & Plan (03/12/2018 11:48 AM BILINGUAL RESEARCH INTERVIEWER): Reviewed recent surgery labs, notes. Primary osteoarthritis of both knees 12/18/2016 Degeneration of lumbar or lumbosacral interverte bral disc 04/04/2010 Encounters Date Type Department Care Team Description 06/29/2024 8:00 AM BILINGUAL RESEARCH INTERVIEWER Office Visit [facility] Orthopedic and Sports Medicine [address] [place] [phone] Joann Tovar PA Insufficiency of right rotator cuff (Primary Dx); Primary osteoarthritis of left shoulder 04/15/[address] [facility] Bone Marrow Transplant [address] [address] Heidi Simpson RN from Last 3 Months Immunizations Immunization Administration Dates Next Due COVID-19 mRNA (Smartdate) 0.3 m L (3 mcg) vaccine (6 months-4 years) 07/09/2023 Influenza, Quadrivalent, Cassie l Culture-based MDCK, Antibiotic Free, Intramuscular 03/09/2019 Influenza, Quadrivalent, Spl it, Intramuscular 04/16/2018 Influenza, Quadrivalent, Spl it, Preservative Free, Intramuscular 02/18/2022,02/01/2021,01/20/2020 Influenza, Trivalent, IM (MDV) 12/27/2022,2016 Influenza, Unspecified 12/27/2022 [employer] SARS-CoV-2 Monovalent Vaccination (12+ Yrs) PURPLE 06/02/2020,05/12/2020 [employer] Sars-Cov-2 Bivalent V accination (12+ YRS) 01/23/2023 [...] vomiting) GERD (gastroesophageal reflux disease) Headache A-fib (HCC) Family History Medical History Relation Name Comments Thyroid cancer Daughter Cancer Father Diabetes Mother Heart attack Mother Hypertension Mother Relation Name Status Comments Daughter Father Mother Social History Tobacco Use Types Packs/Day Years Used Date Smoking Tobacco: Never Smokeless Tobacco: Never Tobacco Cessation:Counseling Given: Not Answered Alcohol Use Standard Drinks/Week Comments Yes 0 [...] on file Legal Sex Female 8:07 AM BILINGUAL RESEARCH INTERVIEWER Gender Identity Not on file Sexual Orientation Not on file 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 Not on file Not on file Not on file Obstetrics History Last Filed Vital Signs Vital Sign Reading Time Taken Comments Blood Pressure 123/81 06/29/2024 8:19 AM BILINGUAL RESEARCH INTERVIEWER Pulse 76 06/29/2024 8:19 AM BILINGUAL RESEARCH INTERVIEWER Temperature 36.3 C (97.3 F) 01/26/2024 7:57 AM CDT Respiratory Rate 16 06/29/2024 8:19 AM BILINGUAL RESEARCH INTERVIEWER Oxygen Saturation 98% 01/26/2024 9:05 AM CDT Inhaled Oxygen Concentration - - Weight 74.3 kg (163 lb 11.2 oz) 06/29/2024 8:19 AM BILINGUAL RESEARCH INTERVIEWER Height 161.3 cm (5' 3.5 ) 06/29/2024 8:19 AM BILINGUAL RESEARCH INTERVIEWER Body Mass Index 28.54 06/29/2024 8:19 AM BILINGUAL RESEARCH INTERVIEWER Plan of Treatment Health Maintenance Due Date Last Done Comments Colon Cancer Screening-Colonoscopy 1955 Depression Screening 1956 Hepatitis C Screening 1956 Hepatitis B Screening 1974 Well Visit 65+ 2021 Pneumococcal vaccine 65+ (2 of 2 - PCV) 08/09/2022 08/09/2021 Breast Cancer Screening-Mammogram 10/23/2023 10/22/2022, 10/22/2022, 08/03/2020, Additional history exists Covid-19 Vaccine (2023-2 5 season) 2024 12/31/2023, 07/09/2023, 07/09/2023, Additional history exists Osteoporosis Screening-Bone Density Scan 10/22/2024 10/22/2022, 10/22/2022 Fall Risk Assessment 01/25/2025 01/26/2024 DTaP/Tdap/Td Vaccine (2 - Td or Tdap) 06/01/2034 06/01/2024 Zoster Vaccine Completed 12/02/2022, 05/19/2020 Influenza Vaccine Completed 12/31/2023, , 12/27/2022, Additional history exists Medical Devices Implanted Type Area Automation Qtp Tester Device Identifier Shelf Expiration Date Model / Serial / Lot Heather Quiñones 016-731 Piston Otology 5mm .5mm Eclipse 360d Incus Wide Flat Ribbon - [id number] Implanted:Qty: 1 on 12/06/2020 by Noelle Rachel MD at [facility] Right: Ear [employer] 03/25/2024 [id number] / / [id number] Procedures Procedure Name Priority Date/Time Associated Diagnosis Comments MS ARTHROCENTESIS ASPIR&/INJ MAJOR JT/BURSA W/O US Routine 06/29/2024 8:00 AM BILINGUAL RESEARCH INTERVIEWER Insufficiency of right rotator cuff Primary osteoarthritis of left shoulder from Last 3 Months Results * MS ARTHROCENTESIS ASPIR&/INJ MAJOR JT/BURSA W/O US (06/29/2024 8:00 AM BILINGUAL RESEARCH INTERVIEWER) Narrative Joann Tovar PA - 06/29/2024 8:00 AM BILINGUAL RESEARCH INTERVIEWER Joann Tovar PA 06/29/2024 8:41 AM Large Joint (Hip, Knee, Shoulder) Injection: bilateral glenohumeral Performed by: Joann Tovar PA Authorized by: Joann Tovar PA Large Joint Injection/Aspiration: Consent Given by: Patient Site marked: the procedure site was marked Verbal consent obtained: Yes Supporting Documentation: Indications: Diagnostic and pain Procedure Details: Location: Shoulder Site: Bilateral glenohumeral Needle Size: 22 G Approach: Posterior Ultrasound guided: No Fluroscopic guidance: No Medications Right Large Joint Injection: 3 mL lidocaine 20 mg/mL (2 %); 80 mg methylPREDNISolone acetate 80 mg/mL Medications Left Large Joint Injection: 3 mL lidocaine 20 mg/mL (2 %); 80 mg methylPREDNISolone acetate 80 mg/mL Patient tolerance: Patient tolerated the procedure well with no immediate complications Joann GARCIA IN CLINIC/BEDSIDE ORDER PIERCE Final Result from Last 3 Months Insurance IDUT TNA MEDICARE GOLD MEDICARE TNA MEDICARE GOLD IDPA AETNA MEDICARE GOLD IDPA Care Teams Deaf Teacher Relationship Specialty Start Date End Date David Han MD [address] [place] [address] PCP - General Internal Medicine 01/13/17 Celia Bill, MCAT TUTOR Physical Therapist Physical Therapy 03/31/17 Joann Tovar PA [address] [place] [address] [address] [place] [address] Referring Physician Orthopedic Surgery 04/01/17 Jocy Mooney PT Physical Therapist Physical Therapy 04/23/17 Maksim Quiroga MD [address] [address] Medical Oncologist/Director Design Medical Oncology 09/25/23
--- OUTSIDE RECORDS SUMMARY | 2024-07-10 08:21 | XMS_ITS | Encounter Summary ---
Author Organization [facility] Address [address] [place] [address] Phone Care Team Providers Care Body Component Engineer Name Role Phone David Han MD Primary Care Provider [phone] Solomon Meyers MD PhD Unavailable [phone] Marisela Hi APRN, VERTICAL CONTOUR BAND SAW OPERATOR Unavailable [phone] Suly Prabhakar RICE FIELD WORKER, VERTICAL CONTOUR BAND SAW OPERATOR Unavailable + [phone] Encounter Details Date Type Department Care Team (Late st Contact Info) Description 06/18/2024 Results Follow-Up [facility] - Internal Medicine - [place] [address] [place] [address] David Han MD [address] [place] [address] Social History Tobacco Use Types Packs/Day Years Used Date Smoking Tobacco: Never Passive Smoke Exposure: Never Smokeless Tobacco: Never Alcohol Use Standard Drinks/Week Comments Not Currently 0 (1 standard drink = 0.6 oz pur e alcohol) [facility] Utilities Answer Date Recorded In the [...] often do you attend chur ch or cheondoism services? 1 to 4 times per year 06/21/2024 Do you belong to any clubs o r organizations such as anabaptism groups, unions, fraternal or athletic groups, or [...] Total Score - Questions 1-9 0 10/27 [employer] of Occupat ional Health - Occupational Stress [...] place to sleep or slept in a fpc (including now)? No 09/16/2023 Housing Stability Vital Sign Answer Gene e Recorded In the last 12 months, was t here a time when you were not able to pay the mortgage or rent on time? No 06/21/2024 In the past 12 months, how m any times have you moved where you were living? 1 06/21/2024 At any time in the past 12 m [facility], were you homeless or living in a fpc (including now)? No 06/21/2024 Education Answer Date [...] of Assessment Author 0 06/21/2024 8:18 AM HOSPITAL ADMINISTRATOR [employer] System Background * Q1: How often do you have a drink containing alcohol? Answer Date of Assessment Author Never 06/21/2024 8:18 AM HOSPITAL ADMINISTRATOR [employer] Background * Q2: How many drinks containing alcohol do you have on a typical day when you are drinking? Answer Date of Assessment Author Patient does not drink 06/21/2024 8:18 AM HOSPITAL ADMINISTRATOR [employer] Background * Q3: How often do you have six or more drinks on one occasion? Answer Date of Assessment Author Stephen 06/21/2024 8:18 AM HOSPITAL ADMINISTRATOR [employer] Background documented as of this encounter Plan of Treatment Upcoming Encounters Date Type Department Care Team (Late st Contact Info) Description 07/28/2024 7:15 AM CDT [facility] [address] [place] [phone] David Han MD [address] [place] [address] 09/13/2024 1:00 PM CDT Office Visit [facility] - Cardiology [facility] [address] [place] [phone] Suly Prabhakar APRN, VERTICAL CONTOUR BAND SAW OPERATOR #2 [facility] [address] [place] [address] 09/22/2024 8:00 AM CDT Lab [facility] Internal Medicine [facility] [address] [place] [address] [facility] 09/30/2024 9:30 AM CDT [facility] [address] [place] [phone] David Han MD [address] [place] [address] 10/25/2024 8:00 AM CDT Office Visit [facility] - Pulmonology & Sleep Medicine [facility] [address] [place] [phone] Marisela Hi APRN, VERTICAL CONTOUR BAND SAW OPERATOR #2 [facility] [address] [place] [address] documented as of this encounter Visit Diagnoses Not on filedocumented in this encounter Additional Health Concerns Assessment Noted Time PHQ-9 Depression Total Score: 0 11/18/19 24 11:11 AM CDT documented as of this encounter Care Teams Body Component Engineer Relationship Specialty Start Date End Date David Han MD [address] [place] [address] PCP - General Internal Medicine 01/14/20 Solomon Meyers MD PhD #2 [place] [address] [facility] Interventional Cardiology 12/02/23 Marisela Hi APRN, VERTICAL CONTOUR BAND SAW OPERATOR #2 [facility] [address] [place] [address] Nurse Practitioner Advanced Practice Nurse 01/19/24 Suly Prabhakar APRN, VERTICAL CONTOUR BAND SAW OPERATOR #2 [facility], [address] [place] [address] Nurse Practitioner Cardiology 03/24/24 documented as of this encounter
--- OUTSIDE RECORDS SUMMARY | 2024-07-10 08:21 | XMS_ITS | Patient Health Summary ---
Author Organization [facility] Address [address] [place] [address] Care Team Providers Care Back Stayer Name Role Phone David Han MD Primary Care Provider [phone] Note from [facility],non-owned Affiliates and Associated Physician Practices is amultiple site organization consisting of ambulatory clinics and hospital sitesin [place], [place], [place] and [place]. This disclosure is being madepursuant to the Care Everywhere program and may not contain all information available regarding this patient. Last updated 18.[facility] Allergies No known active allergies Medications * Be aware that medications may not be up to date on this document. Alwaysverify current medications with the patient. * Calcium-Vitamin D (CALCIUM + D PO) Take 1 tablet by mouth once daily * vitamin E (TOCOPHERYL) 400 UNIT tablet * Avon-3 Fatty Acids (FISH OIL PO) Take 1 [...] capsule by mouth once daily * HYDROcodone-acetaminophen ([place]) 7.5-325 MG tablet(Started 10/31/2023) * pregabalin (Lyrica) 100 MG capsule(Started 09/17/2023) Take 1 (one) capsule by mouth 2 times daily * cyanocobalamin (Vitamin B-12) 1000 MCG tablet Take 1 (one) tablet by mouth once daily * Fe-Succ Ac-B Dzvvg-M-Me-FA (Irospan 19/10) Take by mouth * spironolactone [...] (heart failure with reduced ejection fraction) ([facility]) * BASIC METABOLIC PANEL (CALCIUM TOTAL)(Performed 12/09/2023) Performed for HFrEF (heart failure with reduced ejection fraction) ([facility]) * EKG 12-LEAD(Performed 11/21/2023) Performed for HFrEF (heart failure with reduced ejection fraction) ([facility]) * B-TYPE NATRIURETIC PEPTIDE(Performed 11/08/2023) * BASIC METABOLIC PANEL (CALCIUM TOTAL)(Performed 11/08/2023) * CBC W AUTO DIFFERENTIAL(Performed 11/08/2023) * MAGNESIUM BLOOD(Performed 11/08/2023) * PHOSPHORUS BLOOD(Performed 11/08/2023) * EP CARDIOVERSION(Performed 11/07/2023) Performed for Longstanding persistent atrial fibrillation ([facility]) * EKG 12-LEAD(Performed 11/07/2023) Performed for Persistent atrial fibrillation ([facility]) * XR CHEST 2VW(Performed 11/07/2023) Performed for HFrEF (heart failure with reduced ejection fraction) ([facility]) * BASIC METABOLIC PANEL (CALCIUM TOTAL)(Performed 11/07/2023) [...] CONTRAST(Performed 11/05/2023) Performed for Cardiogenic shock ([facility]) * LACTIC ACID BLOOD(Performed 11/05/2023) * SVO2 [...] REF LAB-REQUEST PROBLEM (12/26/2023 7:22 AM CDT) [facility] Specimen Integrity Compromised See Below [facility] Comment: Whole blood, unspun or partially spun gel barrier tube was received more than 6 hours since collection. A false elevation of K, Phos and LD as well as a false decrease in glucose may occur due to prolonged contact with red cells. Test Performed at: [facility] [id number] [place] [id number] JULIAN MARC MD 12/26/2023 7:22 AM CDT 12/26/2023 7:22 AM CDT Deja Meehan CARPENTER REPAIRER-RN INTERVENTIONAL LAB - CHEMISTR Y ORDERABLES [facility] [id number] [place] [address] * (ABNORMAL) BASIC METABOLIC PANEL (CALCIUM TOTAL) (12/26/2023 7:22 AM CDT) Only the most recent of4 resultswithin the time period is included. [facility] Glucose 98 65 - 99 mg/dL [facility] [...] Comment: REPORT COMMENT: FASTING:YES Test Performed at: [place] [address] [facility] [place] [address] JULIAN MARC MD Blood BLOOD SPECIMEN / Unknown 12/26/2023 7:22 AM CDT 12/26/2023 7:22 AM CDT Deja Meehan CARPENTER REPAIRER-RN INTERVENTIONAL LAB - CHEMISTR Y ORDERABLES [facility] [address] [place] [address] * EKG 12-LEAD (11/21/2023 3:52 PM CDT) Only the most recent of2 resultswithin the time period is included. Ventricular Rate 61 BPM [facility] Atrial Rate 61 BPM [facility] P-R Interval 192 ms [facility] QRS Duration ms 100 ms [facility] Q-T Interval ms 434 ms [facility] QTC Calculation (Bezet) 436 ms [facility] Calculated P Seward 42 degrees [facility] Calculated R [place] -26 degrees [facility] Calculated T Seward 150 degrees [facility] Interpretation EKG NORMAL SINUS RHYTHM LEFT VENTRICULAR HYPERTROPHY WITH REPOLARIZATION ABNORMALITY ( Iain product ) CANNOT RULE OUT SEPTAL INFARCT , AGE UNDETERMINED ABNORMAL ECG WHEN COMPARED WITH ECG OF 07-NOV-2023 15:27, (UNCONFIRMED) MINIMAL CRITERIA FOR SEPTAL INFARCT ARE NOW PRESENT NONSPECIFIC T WAVE ABNORMALITY NO LONGER EVIDENT IN ANTERIOR LEADS Confirmed by [facility] ([id number]) on 11/26/2023 5:52:25 PM [facility] 11/21/2023 3:52 PM CDT 11/26/2023 5:52 PM CDT Deja Meehan CARPENTER REPAIRER-RN INTERVENTIONAL ECG ORDERABLES SUN[facility] HERRERA * (ABNORMAL) CBC W AUTO DIFFERENTIAL (11/08/2023 3:54 AM CDT) Only the most recent of5 resultswithin the time period is included. WBC 4.1 4.0 - 10.7 x10E9/L 11/08/2023 4:[address] [facility] RBC Count 3.98 3.90 - 5.20 x10E12/L 11/08/2023 4:20 AM [facility] Hemoglobin 12.0 11.9 - 15.8 g/dL 11/08/2023 4:20 AM [facility] Hematocrit 37.7 34.8 - 46.1 % 11/08/2023 4:20 AM [facility] MCV 94.7 80.0 - 98.0 fL 11/08/2023 4:20 AM [facility] MCH 30.2 26.7 - 33.6 pg 11/08/2023 4:20 AM [facility] MCHC 31.8 31.7 - 36.3 g/dL 11/08/2023 4:20 AM [facility] RDW-CV 13.3 11.3 - 14.8 % 11/08/2023 4:20 AM [facility] Platelet Count 140(L) 150 - 420 x10E9/L 11/08/2023 4:20 AM [facility] MPV 11.9(H) 7.8 - 11.4 fL 11/08/2023 4:20 AM [facility] Neutrophil % 64.4 41.0 - 74.0 % 11/08/2023 4:20 AM [facility] Lymphocyte % 26.2 17.0 - 47.0 % 11/08/2023 4:20 AM [facility] Monocyte % 5.3 3.0 - 11.0 % 11/08/2023 4:20 AM [facility] Eosinophil % 3.6 0.0 - 7.0 % 11/08/2023 4:20 AM [facility] Basophil % 0.5 0.0 - 1.6 % 11/08/2023 4:20 AM [facility] Immature Granulocytes % 0.0 0.0 - 1.0 % 11/08/2023 4:20 AM [facility] Neutrophil Absolute 2.65 1.60 - 7.50 x10E9/L 11/08/2023 4:20 AM [facility] Lymphocyte Absolute 1.08 1.00 - 4.40 x10E9/L 11/08/2023 4:20 AM [facility] Monocyte Absolute 0.22 0.15 - 1.00 x10E9/L 11/08/2023 4:20 AM [facility] Eosinophil Absolute 0.15 0.00 - 0.60 x10E9/L 11/08/2023 4:20 AM [facility] Basophil Absolute 0.02 0.00 - 0.13 x10E9/L 11/08/2023 4:20 AM [facility] Blood BLOOD SPECIMEN / Unknown Venipuncture / Unknown 11/08/2023 3:54 AM CDT 11/08/2023 4:09 AM CDT Solomon Meyers MD LAB - HEMATOLOGY ORD ERABLES [facility] [address] [place] [address], [facility] [phone] * (ABNORMAL) B-TYPE NATRIURETIC PEPTIDE (11/08/2023 3:54 AM CDT) Only the most recent of2 resultswithin the time period is included. BNP 780(H) <100 pg/mL 11/08/2023 4:44 AM [facility] Comment: A decision threshold of 100 pg/mL [...] - CHEMISTRY ORDSvetlana LEUNG Performing Organization Address [facility] Co de Phone Number [address] [address], [facility] [phone] * PHOSPHORUS BLOOD (11/08/2023 3:54 AM CDT) Only the most recent of5 resultswithin the time period is included. Phosphorus 4.0 2.9 - 5.1 mg/dL 11/08/2023 4:39 AM CDT [facility] Blood BLOOD SPECIMEN / Unknown Venipuncture / Unknown 11/08/2023 3:54 AM CDT 11/08/2023 4:09 AM CDT Solomon Meyers MD LAB - CHEMISTRY FABRICIO LEUNG Performing Organization Address [facility] Co de Phone Number [address] [address], [facility] [phone] * MAGNESIUM BLOOD (11/08/2023 3:54 AM CDT) Only the most recent of5 resultswithin the time period is included. Magnesium 2.4 1.6 - 2.6 mg/dL 11/08/2023 4:39 AM CDT [facility] Blood BLOOD SPECIMEN / Unknown Venipuncture / Unknown 11/08/2023 3:54 AM CDT 11/08/2023 4:09 AM CDT Solomon Meyers MD LAB - CHEMISTRY FABRICIO LEUNG [facility] [address] [place] [address], [facility] [phone] * EP CARDIOVERSION (11/07/2023 12:34 PM CDT) [...] with therapeutic levels for over one month. Hand Presser: Sonido Solitario MD and Lukas Frazier MD [...] Lukas Frazier MD Cardiovascular Diseases Fellow PGY-5 [facility] Sonido Solitario MD ELECTROPHYS RADIANT * XR [...] 7 - 26 mg/dL 11/06/2023 4:20 AM [facility] Creatinine 0.79 0.56 - 0.96 mg/dL 11/06/2023 4:20 AM [facility] Sodium 142 136 - 145 mmol/L 11/06/2023 4:20 AM [facility] Potassium 3.9 3.5 - 4.5 mmol/L 11/06/2023 4:20 AM CDT [facility] Chloride 108(H) 98 - 107 mmol/L 11/06/2023 4:20 AM [facility] CO2 27 22 - 29 mmol/L 11/06/2023 4:20 AM [facility] Glucose 114 70 - 115 mg/dL 11/06/2023 4:20 AM [facility] Calcium 8.6 8.4 - 10.2 mg/dL 11/06/2023 4:20 AM [facility] Protein Total 6.0 6.0 - 8.3 g/dL 11/06/2023 4:20 AM [facility] Albumin 3.2(L) 3.4 - 5.0 g/dL 11/06/2023 4:20 AM [facility] Bilirubin Total 0.3 0.2 - 1.2 mg/dL 11/06/2023 4:20 AM [facility] Alkaline Phosphatase 78 40 - 150 U/L 11/06/2023 4:20 AM [facility] ALT 19 5 - 55 U/L 11/06/2023 4:20 AM [facility] AST 15 5 - 34 U/L 11/06/2023 4:20 AM [facility] Anion Gap 7 6 - 16 11/06/2023 4:20 AM [facility] BUN/Creatinine Ratio 22 7 - 23 11/06/2023 4:20 AM [facility] Osmolality Calculated 296(H) 275 - 295 mOsm/kg 11/06/2023 4:20 AM [facility] Albumin/Globulin Ratio 1.1 1.1 - 2.3 11/06/2023 4:20 AM [facility] eGFR by CKD-EPI 82(L) >=90 mL/min/1.7 3 m2 11/06/2023 4:20 AM [facility] Blood BLOOD SPECIMEN / Unknown Venipuncture / Unknown 11/06/2023 3:47 AM CDT 11/06/2023 3:56 AM T Solomon Meyers MD LAB - CHEMISTRY FABRICIO LEUNG [facility] Organization Address City/State/ZIP Co de Phone Number [facility] [address] [place] [address], [place] [phone] * LACTIC ACID BLOOD (11/06/2023 3:47 AM CDT) Only the most recent of5 resultswithin the time period is included. Pathologist [facility] Lactic Acid-Stat 0.7 <=2.0 mmol/L 11/06/2023 4:16 AM CDT [facility] Blood BLOOD SPECIMEN / Unknown Venipuncture / Unknown 11/06/2023 3:47 AM CDT 11/06/2023 3:54 AM CDT Solomon Meyers MD LAB - CHEMISTRY FABRICIO [facility] [place] [address] [place] [address], [place] [phone] * ECHO COMPLETE W CONTRAST (11/05/2023 3:15 PM CDT) Pathologist [facility] LA vol index 0.06 l/m [facility] CV [...] LV A2C EF 36.615 % [facility] CV [facility] I PACS LV A2C EF 36.615 % [facility] CV [facility] I PACS LV A2C EF 36.615 % [facility] CV [facility] I PACS LV A4C EF 22.141 % [facility] CV [facility] I PACS LV A4C EF 22.141 % [facility] CV [facility] I PACS LV A4C EF 22.141 % [facility] CV [facility] I PACS LV EDV A2C [...] pk willem 91.025 cm/s SSM CV F RUST PACS LVOT pk willem 78.87 cm/s SSM CV F RUST PACS LVOT pk willem 90.107 cm/s SSM CV F RUST PACS LVOT pk willem 81.045 cm/s SSM CV F RUST PACS LVOT pk willem 104.244 cm/s SSM CV F RUST PACS LVOT pk willem 86.405 cm/s SSM CV F RUST PACS LVOT pk willem 105.482 cm/s SSM CV F RUST PACS LVOT VTI 13.918 cm SSM CV [facility] I PACS LVOT VTI 12.467 cm SSM CV [facility] I PACS LVOT VTI 13.133 cm SSM CV [facility] I PACS LVOT VTI 12.03 cm SSM CV [facility] I PACS LVOT VTI 17.394 cm SSM CV [facility] I PACS LVOT VTI 10.971 cm SSM CV [facility] I PACS LVOT VTI 17.514 cm SSM CV [facility] I PACS RV-whitehead basal diam 4.097 cm SSM CV [facility] PACS RV-whitehead basal diam 4.097 cm [...] 1:24 PM Patient Status: I/P Study Site: [facility] Primary Location: [facility] EStudy Info Technical Quality: Good Exam Type: [...] Provider: Solomon Meyers Attending Physician: Solomon Meyers Rounding And Backing Machine Operator: Anup Hays Left Ventricle Left ventricular systolic [...] 1:24 PM Patient Status: I/P Study Site: [facility] Primary Location: [facility] EStud Info Technical Quality: Good Exam Type: [...] Provider: Solomon Meyers Attending Physician: Solomon Meyers Rounding And Backing Machine Operator: Anup Hays Left Ventricle Left ventricular systolic [...] FOR RECALIBRATION (11/05/2023 3:50 AM CDT) Pathologist [facility] SVO2 for Recalibration 93.3(H) 66.0 - 77.0 % 11/05/2023 4:00 AM CDT [facility] Blood BLOOD SPECIMEN / Unknown Venipuncture / Unknown 11/05/2023 3:50 AM CDT 11/05/2023 3:57 AM CDT Solomon Meyers MD LAB - CHEMISTRY FABRICIO LEUNG [facility] [address] [place] [address], [facility] [phone] * (ABNORMAL) BLOOD GASES ART + COOX PANEL (11/05/2023 1:21 AM CDT) pH Arterial 7.41 7.35 - 7.45 pH 11/05/2023 1:28 AM [facility] pO2 Arterial 79(L) 80 - 100 mmHg 11/05/2023 1:28 AM [facility] pCO2 Arterial 37 35 - 45 mmHg 1:28 AM [facility] HCO3 Arterial 23.5 20.0 - 30.0 mmol/L 11/05/2023 1:28 AM [facility] BE Arterial -0.9 -2.0 - 2.0 mmol/L 11/05/2023 1:28 AM [facility] Oxyhemoglobin Arterial 96.3 % 11/05/2023 1:28 AM [facility] Dexoyhemoglobin (HHB) % 1.5 % 11/05/2023 1:28 AM [facility] Methemoglobin 0.8 0.0 - 2.0 % 11/05/2023 1:28 AM [facility] Carboxyhemoglobin 1.5 0.0 - 2.0 % 2023 1:28 AM [facility] O2 Content Arterial 16.7 Interpret within clinical context ml/dL 11/05/2023 1:28 AM [facility] Hemoglobin by COOX 12.3 12.0 - 15.6 g/dL 11/05/2023 1:28 AM [facility] O2 Saturation Arterial 99 90 - 100 % 11/05/2023 1:28 AM [facility] FI O2 Arterial 21.0 % 11/05/2023 1:28 AM [facility] Blood, arterial ARTERIAL BLOOD SPECIMEN / Unknown Arterial Puncture / Unknown 11/05/2023 1:21 AM [facility] 11/05/2023 1:25 AM [facility] - 11/05/2023 1:28 AM [facility] Carboxyhemoglobin Normal Concentration: Non-smokers: 0-2%; Smokers: 0-9%; Toxic: >20% Solomon Meyers MD LAB - BLOOD GASES OR DERABLES [facility] [address] [place] [address], [facility] [phone] * XR CHEST 1VW PORTABLE (11/05/2023 12:38 [...] MD DIAGNOSTIC IMAGING O RDERABLES * PTT [facility] (11/05/2023 12:32 AM CDT) APTT 35.5 23.0 - 38.4 Seconds 11/05/2023 1:26 AM CDT [facility] Comment:Suggested therapeuti c range for full dose I.V. unfractionated heparin therapy for venous thromboembolism is 71 to 109 seconds. Blood BLOOD SPECIMEN / Unknown Venipuncture / Unknown 11/05/2023 12:32 AM CDT 11/05/2023 12:42 AM CDT Solomon Meyers MD LAB - COAGULATION OR DERABLES [address] [address], [facility] [phone] * (ABNORMAL) PT-INR [facility] (11/05/2023 12:32 AM CDT) PT 17.6(H) 12.1 - 14.8 Seconds 11/05/2023 1:26 AM [facility] INR 1.5 See Comment 11/05/2023 1:26 AM [facility] Comment:The suggested therap eutic range for standard coumadin (warfarin) therapy is an INR of 2.0-3.0. For high-risk patients (Mechanical Mitral Valve Prosthesis, etc.), the suggested prophylactic therapeutic range is an INR of 2.5-3.5. Blood BLOOD SPECIMEN / Unknown Venipuncture / Unknown 11/05/2023 12:32 AM CDT 11/05/2023 12:42 AM CDT Solomon Meyers MD LAB - COAGULATION OR DERABLES Performing Organization Address City/State/[facility] Co de Phone Number [address] [address], [facility] [phone] * (ABNORMAL) BLOOD GASES MIGUEL ANGEL + COOX PANEL (11/05/2023 12:32 AM CDT) pH Venous 7.38 7.32 - 7.42 pH 11/05/2023 12:42 AM [facility] pO2 Venous 46(H) 35 - 40 mmHg 11/05/2023 12:42 AM [facility] pCO2 Venous 41 40 - 50 mmHg 11/05/2023 12:42 AM [facility] HCO3 Venous 24.3 20 - 30 mmol/L 11/05/2023 12:42 AM [facility] Base Excess Venous -0.8 -2.0 - 2.0 mmol/L 11/05/2023 12:42 AM [facility] Oxyhemoglobin Venous 80.3 % 10/26 12:42 AM [facility] Deoxyhemoglobin (HHB) Venous % 17.4 % 11/05/2023 12:42 AM [facility] Methemoglobin <0.8 0.0 - 2.0 % 11/05/2023 12:42 AM [facility] Carboxyhemoglobin 1.5 0.0 - 2.0 % 2023 12:42 AM [facility] O2 Content Venous 14.0 Interpret within clinical context ml/dL 11/05/2023 12:42 AM [facility] Hemoglobin by COOX 12.4 12.0 - 15.6 g/dL 11/05/2023 12:42 AM [facility] O2 Saturation Venous 82 >=70 % 10/26 12:42 AM [facility] FI O2 Mixed Venous 21.0 % 2023 12:42 AM [facility] Blood BLOOD SPECIMEN / Unknown Venipuncture / Unknown 11/05/2023 12:32 AM [facility] 11/05/2023 12:40 AM [facility] Narrative [facility] - 11/05/2023 12:42 AM [facility] Carboxyhemoglobin Normal Concentration: Non-smokers: 0-2%; Smokers: 0-9%; Toxic: >20% Solomon Meyers MD LAB - BLOOD GASES OR DERABLES Performing Organization Address City/State/[facility] Co de Phone Number [facility] [address] [place] [address], [facility] [phone] * CARDIAC ECHOCARDIOGRAM COMPLETE ORDER (02/28/2010) Elijah Logan MD ECHO ORDERABLES * MRI SPINE LUMBAR NON CONTRAST (02/28/2010) Anatomical Region Laterality Modality Spine Other Elijah Logan MD MR ORDERABLES Care Teams Back Stayer Relationship Specialty Start Date End Date David Han MD [address] [place] [address] PCP - General Internal Medicine 11/07/23
--- OUTSIDE RECORDS SUMMARY | 2024-07-10 08:21 | XMS_ITS | CONTINUITY OF CARE DOCUMENT ---
Author Name brenda gutierrez Address Unknown Organization [facility] Address [address] [place] [address] Phone [phone] Care Team Providers Care Glass Cut Off Tender Name Role Phone Bhargav Rivera MD Unavailable [phone] ARIANA RIEVRS MD Unavailable [phone] ARIANA RIVERS MD Unavailable [phone] PROBLEMS Condition Status Date Provider Notes CARDIAC MURMUR-08/09 ECHO MIKAYLA S DYS PASP 43 EF 55 active ? Bhargav Rivera MD OBESITY- 2008 GASTRIC BYPASS DONE FISHMAN active ? Bhargav Rivera MD HTN ESSENTIAL active Bhargav Rivera MD ENCOUNTERS Date Type Provider Location Encounter Diagnosis - In-person encounter Office Visit Bhargav Rivera MD [place] [facility] - In-person encounter Office Visit Bhargav Rivera MD [place] [facility] CARDIAC MURMUR-08/09 ECHO IRAHETA DYS PASP 43 EF 55HTN ESSENTIAL - In-person encounter Office Visit Bhargav Rivera MD [place] [facility] OBESITY- 2008 GASTRIC BYPASS DONE FISHMAN VITAL SIGNS Date Observation Value Provider blood pressure, diastolic 81 mm[Hg] Me jaswinder Manning blood pressure, systolic 127 mm[Hg] Korina Manning pulse rate 54 /min Terri Manning oxygen saturation, oximetry 98 % Terri Manning Body Mass Index (Ratio) 37.60 kg/m2 Xin Manning respiratory rate E&M 14 /min Terri Manning weight E&M 226 [lb_av] Terri Manning blood pressure, diastolic 87 mm[Hg] Owen addison Avilez RN blood pressure, systolic 149 mm[Hg] Shyam Avilez DEMARCUS pulse rate 58 /min Shyam Avilez DEMARCUS oxygen saturation, oximetry 97 % Shyam Avilez DEMARCUS respiratory rate E&M 18 /min Shyam dominiquediego TRACY Body Mass Index (Ratio) 38.41 kg/m2 Shyam Avilez DEMARCUS weight E&M 230 [lb_av] Shyam Bedoyadiego TRACY blood pressure, diastolic 85 mm[Hg] Owen addison Avilez RN blood pressure, systolic 154 mm[Hg] Shyam Bedoyadiego TRACY pulse rate 65 /min Shyam Bedoyadiego TRACY oxygen saturation, oximetry 98 % Shyam Avilez DEMARCUS respiratory rate E&M 18 /min Shyam dominiquediego RN Body Mass Index (Ratio) 37.74 kg/m2 Shyam Avilez DEMARCUS weight E&M 226 [lb_av] Shyam Bedoyadiego TRACY height E&M 65 [in_i] Shyam Bedoyadiego TRACY ALLERGIES No Known Drug Allergies RESULTS Date Observation Value Provider Reference Range Interpretation Location calcium, serum 9.6 mg/dL [facility] 8.6-10.0 Normal blood glucose, random 90 mg/dL [facility] 74-109 Normal eGFR if 133 mL/min/{1. 73_m2} [facility] >60 Normal eGFR if not 110 mL/min/{1. 73_m2} [facility] >60 Normal urea nitrogen/creatini ne ratio, serum 28.3 ratio [facility] 8.0-25.0 High creatinine, serum 0.6 mg/dL [facility] 0.50-0.90 Diana l urea nitrogen, blood 17 mg/dL [facility] 6-20 Normal carbon dioxide, venous blood 30 mmol/L [facility] 22-29 High chloride, serum 100 MEQ/L [facility] 98-107 Normal potassium, serum 4.8 MEQ/L [facility] 3.5-5.1 Normal sodium, serum 140 MEQ/L [facility] 136-145 Normal HISTORY OF MEDICATION USE Medication Status Instructions Dates Provider Indications Com ments LOSARTAN POTASSIUM 25 MG ORAL TABLET active 1 tab po daily. Bhargav Rivera MD IRON TABLETS 325MG active one tablet Eva Hough ALPH-E 400 UNIT ORAL CAPSULE active one tablet daily Eva Hough VITAMIN B-12 1000 MCG ORAL TABLET active One tablet daily Shyam Avilez RN ASPIRIN 81 MG ORAL TABLET active ONE TAB. DAILY Shyam Avilez RN PRESERVISION/LUTEI N ORAL CAPSULE active Shyam Avilez RN FISH OIL CAPSULE active ONE TAB. DAILY Shyam Avilez RN CALCIUM CITRATE TABLET active daily Shyam Avilez RN MULTIVITAMINS ORAL CAPSULE active ONE TAB. DAILY Shyam Avilez RN POTASSIUM CHLORIDE 10 MEQ/50ML INTRAVENOUS SOLUTION active one table daily as needed Eva Hough NEXIUM 20 MG ORAL CAPSULE DELAYED RELEASE active ONE TAB. DAILY Shyam Avilez RN LASIX 40 MG ORAL TABLET active daily as needed Shyam Avilez RN CELEBREX 200 MG ORAL CAPSULE active bid Shyam Avilez RN SOCIAL HISTORY Date Observation Value Provider social history E&M Marital Statu s: P demetria has never smoked. Smoking History: Landry augustin has never smoked. Bhargav Rivera MD social history reviewed E&M revi ewed - no changes required Bhargav Rivera MD caffeine use, averag e drinks per day yes Terri Manning drug use no Terri Manning passive cigarette sm belgica exposure no Terri Manning smoking status Never smoker Bhargav Rivera MD social history reviewed E&M reviewed Shyam Avilez RN drug use no Shyam Avilez RN passive cigarette sm belgica exposure no Shyam Avilez RN social history E&M Marital Status: Marrie d Shyam Avilez RN caffeine use, averag e drinks per day yes Shyam Avilez RN smoking status never smoker Shyam Avilez RN social history reviewed E&M reviewed Shyam Avilez RN MENTAL STATUS Date Observation Value Provider assessment of judgme nt and insight E&M Alert and oriented to time, place and person. Mood and affect are normal. Shyam Avilez RN assessment of judgme nt and insight E&M Alert and oriented to time, place and person. Mood and affect are normal. Shyam Avilez RN INSURANCE PROVIDERS Payer name Policy type / Coverage type French mascorro ID [facility] Medicaid 1 [id number] [place] MEDICARE Medicare [id number] TREATMENT PLAN Date Name Performer test results : H er updated medication list for this problem includes: Lasix 40 Mg Tabs (Furosemide) ..... Daily as needed Aspirin 81 Mg Tabs (Aspirin) ..... One tab. daily Losartan Potassium 25 Mg Tabs (Losartan potassium) ..... 1 tab po daily. Bhargav Rivera MD test results : H er updated medication list for this problem includes: Aspirin 81 Mg Tabs (Aspirin) ..... One tab. daily Losartan Potassium 25 Mg Tabs (Losartan potassium) ..... 1 tab po daily. Bhargav Rivera MD heart murmur :ef on echo done at hospital showed ef of 37% t he one done in our echo showed a more normal ef. Her updated medication list for this problem includes: Lasix 40 Mg Tabs (Furosemide) ..... Daily as needed BP today: 154/85 Prior BP: / () Orders: E KG ([id number]) C omplete Echo ([id number]) Bhargav Rivera MD heart murmur Bhargav Rivera MD Date Name Complete Echo BASIC METABOLIC PANE L W/EGFR Complete Echo HISTORY OF PROCEDURES Procedure Date Procedure Name Provider Procedure Notes S tatus EKG Emelina Salguero CLIENT TECHNICAL SUPPORT ASSOCIATE complet ed
--- OUTSIDE RECORDS SUMMARY | 2024-07-10 08:21 | XMS_ITS | Referral Summary ---
Author Organization [facility] Address [address] [place] [address] Care Team Providers Care Water Safety Teacher Name Role Phone David Han MD Primary Care Provider [phone] Celia Bill SCRAP SAWYER Unavailable Unavailable Joann Tovar Unavailable [phone] Jocy Mooney PT Unavailable Unavailable Maksim Quiroga MD Unavailable [phone] Encounters Date Type Department Care Team Description 06/29/2024 8:00 AM MASS COMMUNICATIONS INSTRUCTOR Office Visit [facility] Orthopedic [facility] Sports Medicine [address] [place] [phone] Joann Tovar PA Insufficiency of right rotator cuff (Primary Dx); Primary osteoarthritis of left shoulder 04/15/2024 Telephone [facility] Transplant [address] [place] [phone] Heidi Simpson RN from Last 3 Months Allergies No known [...] ear Assessment & Plan (06/19/2020 9:54 AM MASS COMMUNICATIONS INSTRUCTOR): MRI IACs - call with results and medically clear for hearing aids based on these findings Consider BiCROS versus Cochlear implant History of diabetes mellitus 04/03/2018 Assessment & Plan (04/03/2018 10:14 AM MASS COMMUNICATIONS INSTRUCTOR): Discussed options and will add GLP-1 analog [...] exercise. Assessment & Plan (06/27/2018 4:18 PM MASS COMMUNICATIONS INSTRUCTOR): Reviewed calorie restriction based on BMR as previously detailed. Reviewed recommendation/goal of >/= 150 minutes/week moderate-intensity aerobic exercise. Asked to keep detailed food diary for at least 1 week and bring to next visit and/or continue tracking on phone. Assessment & Plan (05/08/2018 8:28 AM MASS COMMUNICATIONS INSTRUCTOR): Reviewed calorie restriction based on BMR as previously detailed. Reviewed recommendation/goal of >/= 150 minutes/week moderate-intensity aerobic exercise. Asked to keep detailed food diary for at least 1 week and bring to next visit and/or continue tracking on phone. Assessment & Plan (04/03/2018 10:09 AM MASS COMMUNICATIONS INSTRUCTOR): Reviewed calorie restriction based on BMR as previously detailed. Reviewed recommendation/goal of >/= 150 minutes/week moderate-intensity aerobic exercise. Asked to keep detailed food diary for at least 1 week and bring to next visit and/or continue tracking on phone. Assessment & Plan (03/12/2018 11:48 AM MASS COMMUNICATIONS INSTRUCTOR): Discussed that weight loss will require calorie [...] IBW/day. Assessment & Plan (06/27/2018 4:18 PM MASS COMMUNICATIONS INSTRUCTOR): Continue low-carb (<150 g/day), low-glycemic diet. Stay off of semaglutide. Assessment & Plan (05/08/2018 8:29 AM MASS COMMUNICATIONS INSTRUCTOR): Continue low-carb (<150 g/day), low-glycemic diet. Referred to ADA and [employer] websites for additional information on topics including glycemic index/carbohydrate choices, protein sources. Increase semaglutide to 0.5 mg weekly. Assessment & Plan (04/03/2018 10:13 AM MASS COMMUNICATIONS INSTRUCTOR): Continue low-carb (<150 g/day), low-glycemic diet. Reviewed importance of adequate protein intake of 1-1.2 g/kg IBW/day. Discussed that it does not appear she is getting to much protein, but encouraged her to monitor. Assessment & Plan (03/12/2018 11:49 AM MASS COMMUNICATIONS INSTRUCTOR): Discussed recent A1c 5.6 is right at the upper limit of normal. Discussed insulin resistance including affect on weight and risk for progression to diabetes. Recommended low-carb (< 150 g/day), low-glycemic diet; choose whole grains and avoid more highly processed carbohydrates. Discussed potential benefits of this w/r/t gut microbiome. Reviewed importance of adequate protein intake of 1-1.2 g/kg IBW/day. Referred to ADA and [employer] websites for additional information on topics including glycemic index/carbohydrate choices, protein sources. Snoring 03/12/2018 Assessment & Plan (03/12/2018 11:50 AM MASS COMMUNICATIONS INSTRUCTOR): Discussed importance of adequate sleep; good sleep [...] ordered. Assessment & Plan (06/27/2018 4:19 PM MASS COMMUNICATIONS INSTRUCTOR): Obesity is improving with treatment. Behavioral treatment: have recommended counseling.. Diet interventions: as noted. Regular aerobic exercise program discussed. Assessment & Plan (05/08/2018 8:29 AM MASS COMMUNICATIONS INSTRUCTOR): Obesity is unchanged. Diet interventions: as noted. Regular aerobic exercise program discussed. Pharmacotherapy as ordered. Titrate up on topiramate per pain management. Assessment & Plan (04/03/2018 10:15 AM MASS COMMUNICATIONS INSTRUCTOR): Obesity is unchanged. Behavioral treatment: have recommended counseling.. Diet interventions: as noted. Regular aerobic exercise program discussed. Pharmacotherapy as ordered. Assessment & Plan (03/12/2018 11:53 AM MASS COMMUNICATIONS INSTRUCTOR): Obesity is unchanged. General weight loss/lifestyle modification [...] appointment. Assessment & Plan (06/27/2018 4:20 PM MASS COMMUNICATIONS INSTRUCTOR): BP improved today. Check BMP on DENNISE-I. Assessment & Plan (05/08/2018 8:30 AM MASS COMMUNICATIONS INSTRUCTOR): Restart lisinopril 5mg. F/U PCP. Assessment & Plan (03/12/2018 11:55 AM MASS COMMUNICATIONS INSTRUCTOR): BP elevated today. She is not on an DENNISE-I and I do not see history of intolerance -- recommended she f/u with PCP and would consider this. Reviewed role of diet, exercise, weight loss in controlling blood pressure. Recommended low sodium/DASH diet. Continue current medications. Weight gain status post gastric bypass 8 Assessment & Plan (03/12/2018 11:48 AM MASS COMMUNICATIONS INSTRUCTOR): Reviewed recent surgery labs, notes. Primary osteoarthritis of both knees 12/18/2016 Degeneration of lumbar or lumbosacral interverte bral disc 04/04/2010 Immunizations Immunization Administration Dates Next Due COVID-19 mRNA (SunFunder) 0.3 m L (3 mcg) vaccine (6 months-4 years) 07/09/2023 Influenza, Quadrivalent, Cassie l Culture-based MDCK, Antibiotic Free, Intramuscular 03/09/2019 Influenza, Quadrivalent, Spl it, Intramuscular 04/16/2018 Influenza, Quadrivalent, Spl it, Preservative Free, Intramuscular 02/18/2022,02/01/2021,01/20/2020 Influenza, Trivalent, IM (MDV) 12/27/2022,2016 Influenza, Unspecified 12/27/2022 UniServity SARS-CoV-2 Monovalent Vaccination (12+ Yrs) PURPLE 06/02/2020,05/12/2020 [...] on file Legal Sex Female 8:07 AM MASS COMMUNICATIONS INSTRUCTOR Gender Identity Not on file Sexual Orientation Not on file 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 Not on file Not on file Last Filed Vital Signs Vital Sign Reading Time Taken Comments Blood Pressure 123/81 06/29/2024 8:19 AM MASS COMMUNICATIONS INSTRUCTOR Pulse 76 06/29/2024 8:19 AM MASS COMMUNICATIONS INSTRUCTOR Temperature 36.3 C (97.3 F) 01/26/2024 7:57 AM CDT Respiratory Rate 16 06/29/2024 8:19 AM MASS COMMUNICATIONS INSTRUCTOR Oxygen Saturation 98% 01/26/2024 9:05 AM CDT Inhaled Oxygen Concentration - - Weight 74.3 kg (163 lb 11.2 oz) 06/29/2024 8:19 AM MASS COMMUNICATIONS INSTRUCTOR Height 161.3 cm (5' 3.5 ) 06/29/2024 8:19 AM MASS COMMUNICATIONS INSTRUCTOR Body Mass Index 28.54 06/29/2024 8:19 AM MASS COMMUNICATIONS INSTRUCTOR Plan of Treatment Not on file Medical Devices Implanted Type Area Manager Analytical Device Identifier Shelf Expiration Date Model / Serial / Lot [id number] [id number] Piston Otology 5mm .5mm Eclipse 360d Incus Wide Flat Ribbon - [id number] Implanted:Qty: 1 on 12/06/2020 by Noelle Rachel MD at [facility] Right: Ear [employer] 03/25/2024 [id number] / / [id number] Procedures Procedure Name Priority Date/Time Associated Diagnosis Comments IA ARTHROCENTESIS ASPIR&/INJ MAJOR JT/BURSA W/O US Routine 06/29/2024 8:00 AM MASS COMMUNICATIONS INSTRUCTOR Insufficiency of right rotator cuff Primary osteoarthritis of left shoulder from Last 3 Months Results * IA ARTHROCENTESIS ASPIR&/INJ MAJOR JT/BURSA W/O US (06/29/2024 8:00 AM MASS COMMUNICATIONS INSTRUCTOR) Narrative Joann Tovar PA - 06/29/2024 8:00 AM MASS COMMUNICATIONS INSTRUCTOR Joann Tovar PA 06/29/2024 8:41 AM Large [...] COUNTY AET[place] MEDICARE GOLD MEDICARE T MEDICARE [facility] IDPA T MEDICARE [facility] IDPA Care Teams Water Safety Teacher Relationship Specialty Start Date End Date David Han MD [address] [place] [address] PCP - General Internal Medicine 01/13/17 Celia Bill, SCRAP SAWYER Physical Therapist Physical Therapy 03/31/17 Joann Tovar PA [address] [place] [address] [place] [address] Referring Physician Orthopedic Surgery 04/01/17 Jocy Mooney, PT Physical Therapist Physical Therapy 04/23/17 Maksim Quiroga MD [id number] [address] Medical Oncologist/Cigar Wrapper Medical Oncology 09/25/23
--- OUTSIDE RECORDS SUMMARY | 2024-07-10 08:21 | XMS_ITS | Encounter Summary ---
Author Organization [facility] Address [address] [facility] [place] [address] Phone Care Team Providers Care Chef Under Name Role Phone David Han MD Primary Care Provider [phone] Suly Prabhakar APRN, BRACER Unavailable + [phone] Solomon Meyers MD PhD Unavailable [phone] Marisela Hi APRN, BRACER Unavailable [phone] Suly Prabhakar APRN, BRACER Unavailable + [phone] Reason for Visit * Reason Comments Medication Refill Encounter Details Date Type Department Care Team (Late st Contact Info) Description 07/06/2022 Refill [facility] - Internal Medicine - [place] [address] [place] [address] David Han MD [address] [place] [address] Medication Refill Social History Tobacco [...] Dept 05/27/22 Office Visit David Han MD [facility] 02/18/22 Office Visit David Han MD [facility] 11/26/21 Office Visit David Han MD [facility] 11/12/21 Office Visit David Han MD [facility] 08/09/21 Office Visit David Han MD [facility] Showing recent visits within past 365 days and meeting all other requirements Future Appointments Date Type Provider Dept 08/26/22 Appointment David Han MD [facility] Showing future appointments within next 90 days and meeting all other requirements documented in this encounter Plan of Treatment Upcoming Encounters Date Type Department Care Team (Late st Contact Info) Description 07/28/2024 7:15 AM CDT [facility]ointment [facility] [address] [place] [phone] David Han MD [address] [place] [address] 09/13/2024 1:00 PM CDT Office Visit [facility] [address] [place] [address] Suly Prabhakar APRN, BRACER [address] [facility] [address] [place] [address] 09/22/2024 8:00 AM CDT Lab [facility] [address] [place] [phone] [address] [facility] 09/30/2024 9:30 AM CDT Office Visit [facility] [address] [facility] [address] David Han MD [address] [place] [address] 10/25/2024 8:00 AM CDT Office Visit [facility] Pulmonology & Sleep Medicine [facility] [place] [address] Marisela Hi APRN, BRACER [address] [address] documented as of this encounter Visit Diagnoses Not on filedocumented in this encounter Additional Health Concerns Infection Onset Date Last Indicated Resolved Time COVID - 19 06/16/2023 06/16/2023 06/26/2023 12:1 6 AM OFFSET PRESSMAN Respiratory Rule-Out 06/16/2023 06/16/2023 024 10:28 AM OFFSET PRESSMAN Assessment Noted Time PHQ-9 Depression Total Score: 0 07/26/19 21 9:00 AM CDT documented as of this encounter Care Teams Chef Under Relationship Specialty Start Date End Date David Han MD [address] [facility] [address] PCP - General Internal Medicine 01/14/20 Suly Prabhakar APRN, BRACER [address]2 [facility] [address] [place] [address] Nurse Practitioner Advanced Practice Nurse 10/29/23 Solomon Meyers MD PhD [address] [place] [id number] Tag Stringer Interventional Cardiology 12/02/23 Marisela Hi APRN, BRACER [address] [facility] DOC [address] [place] [address] Nurse Practitioner Advanced Practice Nurse 01/19/24 Suly Prabhakar APRN, BRACER #2 [facility] [address] [place] [address] Nurse Practitioner Cardiology 03/24/24 documented as of this encounter
--- OUTSIDE RECORDS SUMMARY | 2024-07-10 08:21 | XMS_ITS | Clinical Summary ---
Author Organization [facility] [employer] Address [address] [place] [address] Care Team Providers Care Hoop Rolls Operator Name Role Phone David Han MD Primary Care Provider [phone] Source Comments [facility] [employer],non-owned Affiliates and Associated Physician Practices is amultiple site organization consisting of ambulatory clinics and hospital sitesin [place], [place], [place] and [place]. This disclosure is being madepursuant to the Care Everywhere program and may not contain all information available regarding this patient. Last updated 18.[facility] [employer] Allergies No known active allergies Medications * Be aware that medications may not be up to date on this document. Alwaysverify current medications with the patient. Medication Sig Dispensed Refills Start Date End Date Status Calcium-Vitamin D (CALCIUM + D PO) Take 1 tablet by mouth once daily Active vitamin E (TOCOPHERYL) 400 UNIT tablet Active Patterson-3 Fatty Acids (FISH OIL PO) Take 1 [...] by mouth once daily Active HYDROcodone-acetami nophen (Delanson) 7.5-325 MG tablet 10/31/2023 Active pregabalin (Lyrica) 100 MG capsule Take 1 (one) capsule by mouth 2 times daily 09/17/2023 Active cyanocobalamin (Vitamin B-12) 1000 MCG tablet Take 1 (one) tablet by mouth once daily Active Fe-Succ Ac-B Gorot-F-Ma-FA (Irospan 19/10) Take by mouth Active spironolactone [...] Health Maintenance Due Date Last Done Comments COLON MONITORING 1956 COLONOSCOPY - COLON CA SCREENING 1956 CT COLONOGRAPHY - COLON CA SCREENING 1956 FIT - COLON CA SCREENING 1956 FLEX SIG - COLON CA SCREENING 1956 LIPID TESTING 1955 HEPATITIS C SCREENING 11/19/1974 DTAP/TDAP/TD VACCINES (1 - Tdap) 11/24/1975 PNEUMOCOCCAL VACCINE 50+ (2 of 2 - PCV) 08/09/2022 08/09/2021 COVID-19 VACCINE (8 - 2023- season) 2024 12/31/2023, 07/09/2023, 01/23/2023, Additional history exists DEPRESSION SCREENING 04/28/2024 MEDICARE AWV CALENDAR YEAR 2024 MAMMOGRAM 10/22/2024 10/22/2022, 09/27, 08/03/2020 COLOGUARD (AGES 45-75) - COLON CA SCREENING 12/12/2024 12/12/2021 Colorectal Cancer Screening 12/12/2024 SCREENING FOR DIABETES 12/25/2026 , 12/09/2023, 11/08/2023, [...] complete this topic MENINGOCOCCAL (Group B) VACCINE SHARED DECISION-MAKING Aged Out No longer eligible based on patient's age to complete this topic MENINGOCOCCAL GROUPS A/C/Y/W VACCINE Aged Out No longer eligible based on patient's age to complete this topic Procedures Procedure Name Priority Date/Time Associated Diagnosis Comments BASIC METABOLIC PANEL (CALCIUM TOTAL) Routine 12/26/2023 7:22 AM CDT HFrEF (heart failure with reduced ejection fraction) (HCC) from Last 3 Months or Most Recently [...] Comment: REPORT COMMENT: FASTING:YES Test Performed at: [facility] [id number] [place] [address] JULIAN MARC MD Blood BLOOD SPECIMEN / Unknown 12/26/2023 7:22 AM CDT 12/26/2023 7:22 AM CDT Deja Meehan SUPERINTENDENT WAREHOUSE-ENGINE MECHANIC LAB - CHEMISTR Y ORDERABLES [facility] [address] [place] [address] from Last 3 Months or Most Recently Relevant to Health Maintenance Advance Directives * Full Code (Latest Code Status on File) Date Activated Date Inactivated Comments 11/05/2023 12:20 AM 11/08/2023 12:28 PM Healthcare Agents on File Name Relationship Healthcare Agent [facility] Communication Radha Mccormick Daughter Power of Tractor Trailer Mechanic (POA) Care Teams Hoop Rolls Operator Relationship Specialty Start Date End Date David Han MD [address] [place] [address] PCP - General Internal Medicine 11/07/23
--- OUTSIDE RECORDS SUMMARY | 2024-07-10 08:21 | XMS_ITS | Continuity of Care Document ---
Author Organization [facility] Address [address] [place] [address] Phone Care Team Providers Care Mcat Tutor Name Role Phone Nolan Dye MD Unavailable [...] Encounter Office/outpat ient visit,est, [facility], [address] [facility], [place], [place], [id number], [place] tel:[phone] [facility] COLLES FRACTURE CLOSEDFX DISTAL RADIUS NEC-CLJOINT PAIN-FOREARM 2 Hardik Francisco. [address] [facility], [address], [place], [place], [id number] , [place]. tel:[phone] Office/outpat ient visit,est, [facility], [address], [id number], [place] [phone] [facility] COLLES FRACTURE CLOSEDFX DISTAL RADIUS NEC-CLJOINT PAIN-FOREARM [address] Francisco. [address] [facility], [address], [id number] , [place]. tel: [phone] Office/outpat ient visit,est, [facility], [address], [id number], [place] [phone] [facility] COLLES FRACTURE CLOSEDJOINT PAIN-FOREARM 2 Dye Nolan. [address], [id number] , [place]. tel: [phone] Office/outpat ient visit,est, [facility], [address], [id number], [place] [phone] [facility] COLLES FRACTURE CLOSEDFX DISTAL RADIUS NEC-CLJOINT PAIN-FOREARM 2 Dye Nolan. [address] [address], [place], [place], [id number] , [place]. tel: [phone] Office consultation, [facility], [address] [place] [address], [id number], [place] [phone] [facility] SPRAIN OF WRIST NOS 2 Hardik Francisco. [address], [id number] , [place]. tel: [phone] Family History Family Member Type Diagnosis Age At Onset No Information Payers Payer name Insurance type Covered libertarian ID Cruz bibiana(s) Lee [employer] [id number] Social History Type Description Quantity Date Captured [...]
--- OUTSIDE RECORDS SUMMARY | 2024-07-10 08:21 | XMS_ITS | Encounter Summary ---
Author Organization [facility] Address [address] [facility] [place] [address] Phone Care Team Providers Care Port Engineer Name Role Phone David Han MD Primary Care Provider [phone] Suly Prabhakar APRN, [employer] Unavailable + [phone] Solomon Meyers MD PhD Unavailable [phone] Marisela Hi APRN, [employer] Unavailable [phone] Suly Prabhakar APRN, [employer] Unavailable + [phone] Reason for Visit * Reason Comments Medication Refill Encounter Details Date Type Department Care Team (Late st Contact Info) Description 06/06/2020 Refill [facility] - Internal Medicine - [place] [address] [place] [address] David Han MD [address] [place] [address] Medication Refill Social History Tobacco Use Types [...] 8:05 AM CST Please review and sign. LY SIGN LANGUAGE INTERPRETER documented in this encounter Plan of Treatment Upcoming Encounters Date Type Department Care Team (Late st Contact Info) Description 07/28/2024 7:15 AM CDT [facility] [address] [place] [id number] David Han MD [address] [facility] [place] [address] 09/13/2024 1:00 PM CDT Office Visit [facility] - Cardiology - [place] [address] [place] [phone] Suly Prabhakar APRN, [employer] [address] [facility], [facility] [address] [place] [address] 09/22/2024 8:00 AM CDT Lab [facility] Internal Medicine [facility] [address] [place] [phone] J[facility] 09/30/2024 9:30 AM CDT Office Visit [facility] - Internal Medicine - [place] [address] [place] [phone] David Han MD [address] [place] [address] 10/25/2024 8:00 AM CDT Office Visit [facility] - Pulmonology & Sleep Medicine [facility] [address] [place] [phone] Marisela Hi APRN, [employer] [address] [facility] [address] [place] [address] documented as of this encounter Visit Diagnoses Not on filedocumented in this encounter Additional Health Concerns Infection Onset Date Last Indicated Resolved Time COVID - 19 11/26/2021 11/26/2021 12/06/2021 12:1 6 AM CDT COVID - 19 06/16/2023 06/16/2023 06/26/2023 12:1 6 AM HOURLY SIGN LANGUAGE INTERPRETER Respiratory Rule-Out 06/16/2023 06/16/2023 024 10:28 AM HOURLY SIGN LANGUAGE INTERPRETER Assessment Noted Time PHQ-9 Depression Total Score: 0 01/20/20 20 9:00 AM CDT documented as of this encounter Care Teams Port Engineer Relationship Specialty Start Date End Date David Han MD [address] [place] [address] PCP - General Internal Medicine 01/14/20 Suly Prabhakar APRN, [employer] #2 [facility], [facility] [address] [place] [address] Nurse Practitioner Advanced Practice Nurse 10/29/23 Solomon Meyers MD PhD [address] [place] [address] Foundry Metallurgist Interventional Cardiology 12/02/23 Marisela Hi APRN, [employer] [address] [facility] [address] [place] [address] Nurse Practitioner Advanced Practice Nurse 01/19/24 Suly Prabhakar APRN, [employer] [address]2 [facility] [address] [facility], [address] [place] [address] Nurse Practitioner Cardiology 03/24/24 documented as of this encounter
--- OUTSIDE RECORDS SUMMARY | 2024-07-10 08:21 | XMS_ITS | Referral Summary ---
Author Organization [facility] Address [address] [facility] [place] [address] Care Team Providers Care Regulator Mechanic Name Role Phone David Han MD Primary Care Provider [phone] Source Comments [facility],non-owned Affiliates and Associated Physician Practices is amultiple site organization consisting of ambulatory clinics and hospital sitesin [place], [place]. This disclosure is being madepursuant to the Care Everywhere program and may not contain all information available regarding this patient. Last updated 18.[facility] Allergies No known active allergies Medications * Be aware that medications may not be up to date on this document. Alwaysverify current medications with the patient. Medication Sig Dispensed Refills Start Date End Date Status Calcium-Vitamin D (CALCIUM + D PO) Take 1 tablet by mouth once daily Active vitamin E (TOCOPHERYL) 400 UNIT tablet Active [place]-3 Fatty Acids (FISH OIL PO) Take 1 [...] by mouth once daily Active HYDROcodone-acetami nophen (Osgood) 7.5-325 MG tablet 10/31/2023 Active pregabalin (Lyrica) 100 MG capsule Take 1 (one) capsule by mouth 2 times daily 09/17/2023 Active cyanocobalamin (Vitamin B-12) 1000 MCG tablet Take 1 (one) tablet by mouth once daily Active Fe-Succ Ac-B Kiuiv-N-Bt-FA (Irospan 19/10) Take by mouth Active spironolactone [...] HFrEF (heart failure with reduced ejection fraction) ([facility]) from Last 3 Months or Most Recently [...] Comment: REPORT COMMENT: FASTING:YES Test Performed at: [facility] [address] [place] [address] JULIAN MARC MD Blood BLOOD SPECIMEN / Unknown 12/26/2023 7:22 AM CDT 12/26/2023 7:22 AM CDT Deja Meehan MARKETING COMMUNICATIONS SPECIALIST-INDIRECT SALES EXEC LAB - CHEMISTR Y ORDERABLES [facility] [address] [place] [address] from Last 3 Months or Most Recently Relevant to Health Maintenance Advance Directives * Full Code (Latest Code Status on File) Date Activated Date Inactivated Comments 11/05/2023 12:20 AM 11/08/2023 12:28 PM Healthcare Agents on File Name Relationship Healthcare Agent [facility] Communication Radha Mccormick Daughter Power of Scaffold Worker (POA) Care Teams Regulator Mechanic Relationship Specialty Start Date End Date David Han MD [address] [place] [address] PCP - General Internal Medicine 11/07/23
--- OUTSIDE RECORDS SUMMARY | 2024-07-10 08:21 | XMS_ITS | Clinical Summary ---
Author Organization [facility] Care Team Providers Care Paper Testing Supervisor Name Role Phone David Han MD Primary Care Provider [phone] Solomon Meyers MD PhD Unavailable [phone] Marisela Hi APRN, CUTTER OUT Unavailable [phone] Suly Prabhakar SUPERVISOR TUMBLERS, CUTTER OUT Unavailable + [phone] Medications Multiple Vitamins-Mineral s (PRESERVISION/MARÍA TEIN PO) Take by mouth daily. Active TURMERIC PO Take 1 Tablet by mouth daily. Active Calcium Carbonate-Vitami n D 600-200 MG-UNIT Tablet Take 1 Tablet by mouth daily. Active Cyanocobalamin (VITAMIN B-12) 1000 MCG Tablet Take 1,000 mcg by mouth. 04/28/18 70 Active Ferrous Sulfate (Iron) 325 (65 Fe) MG Tablet Take 1 Tablet by mouth daily. 90 Tablet 1 03/24/20 24 Active alendronate (FOSAMAX) 70 MG TabletIndication s:Age-related osteoporosis without current pathological fracture Take 1 Tablet by mouth every 7 days. 12 Tablet 3 06/24/19 25 Active apixaban (ELIQUIS) 5 MG TabletIndication s:Atrial Fibrillation Take 1 Tablet by mouth 2 times daily. Indications: Atrial Fibrillation 180 Tablet 1 06/24/19 25 Active Empagliflozin (JARDIANCE) 10 MG Tablet Take 1 Tablet by mouth daily. 90 Tablet 1 06/24/19 25 Active furosemide (LASIX) 40 MG Tablet Take 1 Tablet by mouth daily. 90 Tablet 1 06/24/19 25 Active levothyroxine (SYNTHROID) 25 MCG Tablet Take 1 Tablet by mouth daily. 1 tab on mon, wed, fri 90 Tablet 1 06/24/19 25 Active lisinopril (PRINIVIL, ZESTRIL) 5 MG Tablet Take 1 Tablet by mouth daily. 90 Tablet 1 06/24/19 25 Active metoprolol Succinate (TOPROL-XL) 25 MG TABLET SR 24 HR Take 0.5 Tablets by mouth daily. 45 Tablet 1 06/24/19 25 Active omeprazole (PriLOSEC) 20 MG CAPSULE DELAYED RELEASE Take 1 Capsule by mouth daily. 90 Capsule 1 06/24/19 25 Active pregabalin (LYRICA) 100 MG CapsuleIndicatio ns:Idiopathic peripheral neuropathy Take 1 Capsule by mouth 2 times daily. 180 Capsule 1 06/24/19 25 Active spironolactone (ALDACTONE) 25 MG Tablet Take 1 Tablet by mouth daily. 90 Tablet 1 06/24/19 25 Active topiramate (TOPAMAX) 100 MG Tablet Take 1 Tablet by mouth 2 times daily. 180 Tablet 1 06/24/19 25 Active HYDROcodone-acet aminophen (NORCO) 7.5-325 MG Tablet every 8 hours as needed. 01/01/20 20 025 Discontin ued(Med List Clean Up) alendronate (FOSAMAX) 70 MG TabletIndication s:Age-related osteoporosis without current pathological fracture Take 1 Tablet by mouth every 7 days. 12 Tablet 3 03/24/20 24 025 Discontin ued(Reord er) apixaban (ELIQUIS) 5 MG TabletIndication s:Atrial Fibrillation Take 1 Tablet by mouth 2 times daily. Indications: Atrial Fibrillation 180 Tablet 1 03/24/20 24 025 Discontin ued(Reord er) Empagliflozin (JARDIANCE) 10 MG Tablet Take 1 Tablet by mouth daily. 90 Tablet 1 03/24/20 24 025 Discontin ued(Reord er) furosemide (LASIX) 40 MG Tablet TAKE 1 TABLET BY MOUTH EVERY DAY NEEDED FOR EDEMA 90 Tablet 1 03/24/20 24 025 Discontin ued(Reord er) lisinopril (PRINIVIL, ZESTRIL) 5 MG Tablet Take 1 Tablet by mouth daily. 90 Tablet 1 03/24/20 24 025 Discontin ued(Reord er) omeprazole (PriLOSEC) 20 MG CAPSULE DELAYED RELEASE Take 1 Capsule by mouth daily. 90 Capsule 1 03/24/20 24 025 Discontin ued(Reord er) pregabalin (LYRICA) 100 MG CapsuleIndicatio ns:Idiopathic peripheral neuropathy Take 1 Capsule by mouth 2 times daily. 180 Capsule 1 03/24/20 24 025 Discontin ued(Reord er) spironolactone (ALDACTONE) 25 MG Tablet Take 1 Tablet by mouth daily. 90 Tablet 1 03/24/20 24 025 Discontin ued(Reord er) topiramate (TOPAMAX) 100 MG Tablet Take 1 Tablet by mouth 2 times daily. 180 Tablet 1 03/24/20 24 025 Discontin ued(Reord er) levothyroxine (SYNTHROID) 25 MCG Tablet 1 tab on mon, wed, fri 36 Tablet 1 03/24/20 24 025 Discontin ued(Reord er) metoprolol Succinate (TOPROL-XL) 25 MG TABLET SR 24 HR Take 0.5 Tablets by mouth daily. 45 Tablet 1 04/02/20 24 025 Discontin ued(Reord er) Active Problems Problem Noted Date Diagnosed Date Obstructive sleep apnea 04/26/2024 Chronic systolic CHF (congestive heart failure) 11/18/2023 Assessment & Plan (12/09/2023 4:32 PM CDT): Main issue for discussion today. The patient has chronic combined systolic diastolic heart failure. Appears to be rather euvolemic. She has blood pressure room to increase ED MT. She is on SGLT 2 inhibitor, beta-critsela (low dose, although limited by bradycardia), and [...] To be evaluated for AFib ablation at [facility] Continue apixaban. Age-related osteoporosis wit hout current [...] Encounters Date Type Department Care Team Description 06/24/2024 8:15 AM MESS COOK Office Visit [facility] - Internal Medicine - [place] [address] [place] [phone] David Han MD Chronic systolic CHF (congestive heart failure) (HCC) (Primary Dx); Age-related osteoporosis without current pathological fracture; Idiopathic peripheral neuropathy; Acquired hypothyroidism; Breast cancer screening by mammogram Discharge Disposition: Discharged to home or Selfcare 06/22/2024 Travel 06/21/2024 Results Follow-Up [facility] Adult Pediatric Inpatient Virtual [address] [place] [address] Suly Prabhakar APRN, CUTTER OUT 06/18/2024 Results Follow-Up [facility] Internal Medicine [facility] [address] [place] [address] David Han MD 06/17/2024 8:40 AM MESS COOK Lab [facility] Internal Medicine [facility] [address] [place] [phone] Lab, [facility] Acquired hypothyroidism; Leg cramps Discharge Disposition: Discharged to home or Selfcare 06/15/2024 Travel 04/26/2024 8:30 AM MESS COOK Office Visit [facility] - Pulmonology & Sleep Medicine [facility] [address] [place] [address] Marisela Hi, ORA, CUTTER OUT Obstructive sleep apnea (Primary Dx) Discharge Disposition: Discharged to home or Selfcare 04/24/2024 Travel 04/16/2024 Telephone [facility] Cardiology [facility] [address] [place] [phone] Suly Prabhakar APRN, CUTTER OUT Labs Only; Appointment 04/12/2024 9:00 AM MESS COOK Clinical Support [facility] [address] [place] [address] Nurse, [facility] Blood pressure check (Primary Dx) Discharge Disposition: Discharged to home or Selfcare 04/12/2024 Travel from Last 3 Months Immunizations Immunization Administration Dates Next Due COVID-19 mRNA, bivalent, amena ginal/Omicron BA.1, Non-US Vaccine Product, Pfizer-BioNTPerfectServe 07/09/2023 COVID-19, MRNA, LNP-S, BIVAL ENT , MODERNA, 50 MCG/0.5 ML (12+) 01/23/2023 COVID-19, MRNA, LNP-S, BIVAL ENT , PFIZER, 30 MCG/0.3 ML (12+ Y/O) 01/23/2023 COVID-19, Mrna, Lnp-s, Pf, 50 mcg/0.5 mL 023 Covid-19, Mrna, Lnp-s, Pf, 3 0 Mcg/0.3 Ml Dose (Pfizer) 12/31/2023,06/02/2020,05/12/2020 Covid-19, Mrna, Lnp-s, Pf, T ris-sucrose, 3 Mcg/0.3 Ml 07/09/2023 Covid-19, Mrna, Lnp-s, Pf, T ris-sucrose, 30 Mcg/0.3 Ml (Pfizer) 12/31/2023,07/09/2023 Influenza Vaccine 03/09/2019 Influenza Vaccine greater than 3 yrs 12/31/2023, 12/27/2022 Influenza Vaccine, Quadrivalent, PF 02/18/2022,1 ,01/20/2020 Influenza Vaccine,unspecified Formulation 2022 Influenza, High-dose, Quadrivalent 12/27/2022 Influenza, Injectable, Mdck,quadrivalent,with Preservative 03/09/2019 Influenza, Injectable, Quadrivalent 04/16/2018 Influenza, Seasonal, Injectable, Undefined 03/13 Influenza, high-dose, trivalent, PF 12/31/2023 MMR Vaccine 09/01/2023,08/04/2023 Pneumococcal Vaccine Adult - 23 Valent Pneumococcal conjugate PCV20 , polysaccharide CON960 conjugate, adjuvant, PF 12/31/2023 RSV, Recombinant, Protein Alberts bunit Rsvpref, Adjuvant Recon (Arexvy) 04/08/2023 TDAP Vaccine 06/01/2024 Zoster Vaccine Recombinant 12/02/2022,05/19/2020 Zoster Vaccine, live 12/02/2022 Family History Medical History Relation Name Comments Hypertension Daughter 1 Bipolar Disorder Daughter 2 Mental Disorder, Other Daughter 3 thyro id issues Cancer Father ashley lung Diabetes Mother [place] Heart Disease Mother [place] High Cholesterol Mother [place] Stroke Mother [place] Relation Name Status Comments Daughter 1 Alive Daughter 2 Alive Daughter 3 Alive Father ashley Mother [place] Sister Social History Tobacco Use Types Packs/Day Years Used Date Smoking Tobacco: Never Passive Smoke Exposure: Never Smokeless Tobacco: Never Tobacco Cessation:Counseling Given: No Alcohol Use Standard Drinks/Week Comments Not Currently 0 (1 standard drink = 0.6 oz pur e alcohol) [facility] Utilities Answer Date Recorded In the [...] any clubs o r organizations such as taoist groups, unions, fraternal or athletic groups, or [...] Total Score - Questions 1-9 0 05/30 [facility] Occupat ional Health - Occupational Stress [...] place to sleep or slept in a senior living (including now)? No 09/16/2023 Housing Stability Vital Sign Answer Gene e Recorded In the last 12 months, was t here a time when you were not able to pay the mortgage or rent on time? No 06/21/2024 In the past 12 months, how m any times have you moved where you were living? 1 06/21/2024 At any time in the past 12 m [facility], were you homeless or living in a senior living (including now)? No 06/21/2024 Education Answer Date [...] Sign Reading Time Taken Comments Blood Pressure 118/64 06/24/2024 7:54 AM MESS COOK Pulse 52 06/24/2024 7:54 AM MESS COOK Temperature 36.4 C (97.5 F) 06/24/2024 7:54 AM MESS COOK Respiratory Rate 14 04/26/2024 8:32 AM MESS COOK Oxygen Saturation 99% 06/24/2024 7:54 AM MESS COOK Inhaled Oxygen Concentration - - Weight 73.9 kg (163 lb) 06/24/2024 7:54 AM MESS COOK Height 162.6 cm (5' 4 ) 06/24/2024 7:54 AM MESS COOK Body Mass Index 27.98 06/24/2024 7:54 AM MESS COOK Plan of Treatment Upcoming Encounters Date Type Department Care Team (Late st Contact Info) Description 07/28/2024 7:15 AM CDT Appointment [facility] Emergency Department Mammography [address] [place] [phone] David Han MD [address] [place] [address] 09/13/2024 1:00 PM CDT Office Visit [facility] - Cardiology [facility] [address] [place] [address] Suly Prabhakar APRN, CUTTER OUT [address] [facility] [address] [place] [address] 09/22/2024 8:00 AM CDT Lab [facility] [address] [place] [phone] [facility] 09/30/2024 9:30 AM CDT [facility] [address] [place] [phone] David Han MD [address] [place] [address] 10/25/2024 8:00 AM CDT Office Visit [facility] - Pulmonology & Sleep Medicine [facility] [address] [place] [phone] Marisela Hi, SUPERVISOR TUMBLERS, CUTTER OUT [address] [place] [address] Health Maintenance Due Date Last Done Comments Hepatitis C Virus (HCV) Screening 1955 Immunochemical Fecal Occult Blood 2006 Zoster Immunization (2 of 2) 01/27/202310/2022, 12/02/2022, 05/19/2020 Mammogram 10/23/2023 10/22/2022, 08/03/2020 SARS-COV-2 Immunization ( season) 2024 12/31/2023, 12/31/2023, 07/09/2023, Additional history exists DEXA Bone Density 10/22/2024 10/22/2022 Cologuard 12/12/2024 12/12/2021 Colonoscopy 05/15/2025 05/15/2022 Colorectal Cancer Screening 05/15/2025 Td Immunization Every 10 Years (Adults With 1 Tdap) 06/01/2034 06/01/2024 05/15/2022 Respiratory Syncytial Virus (RSV) Immunization (Adult) Completed 04/08/2023 Influenza Immunization Completed , 12/31/2023, 12/27/2022, Additional history exists Pneumococcal Immunization (50+ years) Completed 12/31/2023, 08/09/2021 Pneumococcal Immunization Combined Discontinued 12/31/2023, 08/09/2021 DTaP/Tdap/Td Immunization Discontinued 06/01/2024 TdaP Immunization Discontinued 06/01/2024 Hepatitis B Immunization Aged Out No longer eligible based on patient's age to complete this topic Meningococcal Immunization (ACWY) Aged Out No longer eligible based on patient's age to complete this topic Rotavirus Immunization Aged Out No lo nger eligible based on patient's age to complete this topic Interventions Community Resource Recommendations Community Resource Services Recommended Domains Addressed Status Status Reason/Outcome Date/Time [facility] Emergency Food Food Insecurity Recommended 03/11/2024 10:13 PM MESS COOK [facility] Food Insecurity Recommended 03/11/2024 10:13 PM MESS COOK [facility] Financial Resource Needs Financial Resource Strain Recommended 03/11/2024 10:13 PM MESS COOK [facility] Financial Resource Needs Financial Resource Strain Recommended 03/11/2024 10:13 PM MESS COOK [facility] Financial Resource Needs Financial Resource Strain Recommended 03/11/2024 10:13 PM MESS COOK from Last 12 Months Procedures Procedure Name Priority Date/Time Associated Diagnosis Comments PAIN CONSULT 06/22/2024 12:00 AM MESS COOK CBC WITH AUTO DIFFERENTIAL Routine 06/17/2024 8:53 AM MESS COOK Leg cramps BASIC METABOLIC PANEL W/ CALCIUM TOTAL Routine 06/17/2024 8:53 AM MESS COOK Leg cramps COMPLETE BLOOD COUNT (CBC) WITH DIFF Routine 06/17/2024 8:53 AM MESS COOK Leg cramps THYROXINE (T4) FREE Routine 06/17/2024 8 :53 AM MESS COOK Acquired hypothyroidism THYROID STIMULATING HORMONE (TSH) Routine 06/17/2024 8:53 AM MESS COOK Acquired hypothyroidism XR - CHEST 06/13/2024 12:00 AM MESS COOK INFLUENZA TEST 06/13/2024 12:00 AM MESS COOK SARS-COV-2 BY MOLECULAR 06/13/2024 12:00 AM MESS COOK IN-HOME CONSULT 05/12/2024 12:00 AM MESS COOK HM DILATED EYE EXAM 05/12/2024 1 2:00 AM MESS COOK HEMOGLOBIN, A1C 05/12/2024 12:00 AM MESS COOK PAIN CONSULT 04/22/2024 12:00 AM MESS COOK BOBBY BONE DENSITOMETRY AXIAL SKELETON Routine 10/22/2022 11:08 AM CDT Asymptomatic menopausal state BOBBY SCREENING BILATERAL DIGITAL W CAD W ESME Routine 10/22/2022 10:45 AM CDT Breast cancer screening by mammogram COLOGUARD Routine 12/12/2021 5:45 AM CDT Screening for colorectal cancer from Last 3 Months or Most Recently Relevant to Health Maintenance Results * PAIN CONSULT (06/22/2024 12:00 AM MESS COOK) Only the most recent of2 resultswithin the time period is included. 06/22/2024 us Provider Scan GENERIC SCAN ORDERS CONSULT Vicky wilson Result SCAN * (ABNORMAL) CBC WITH AUTO DIFFERENTIAL (06/17/2024 8:53 AM MESS COOK) WBC 4.06 4.00 - 12.00 10(3)/mcL 06/17/2024 6:15 PM [facility] RBC 4.09 3.80 - 5.30 10(6)/mcL 06/17/2024 6:15 PM [facility] HEMOGLOBIN (HGB) 13.0 12.0 - 15.8 g/dL 06/17/2024 6:15 PM [facility] HEMATOCRIT (HCT) 40.4 36.0 - 47.0 % 06/17/2024 6:15 PM [facility] MCV 98.8(H) 82.0 - 96.0 fL 06/17/2024 6:15 PM [facility] MCH 31.8 26.0 - 34.0 pg 06/17/2024 6:15 PM [facility] MCHC 32.2 31.0 - 36.0 g/dL 06/17/2024 6:15 PM [facility] PLATELET COUNT 159 140 - 440 10(3)/mcL 06/17/2024 6:15 PM [facility] RDW 12.7 11.8 - 15.5 % 06/17/2024 6:15 PM [facility] MPV 12.3 9.7 - 12.4 fL 06/17/2024 6:15 PM [facility] NEUTROPHILS 55.9 47.0 - 73.0 % 06/17/2024 6:15 PM [facility] LYMPHOCYTES 34.2 18.0 - 42.0 % 06/17/2024 6:15 PM MESS COOK [facility] MONOCYTES 5.7 4.0 - 12.0 % 06/17/2024 6:15 PM MESS COOK [facility] EOSINOPHILS 2.7 0.0 - 5.0 % 06/17/2024 6:15 PM MESS COOK [facility] BASOPHILS 1.5(H) 0.0 - 1.0 % 06/17/2024 6:15 PM MESS COOK [facility] ABSOLUTE NEUTROPHILS 2.27 1.60 - 7.70 10(3)/[facility] 06/17/2024 6:15 PM MESS COOK [facility] ABSOLUTE LYMPHOCYTES 1.39 1.30 - 3.20 10(3)/[facility] 06/17/2024 6:15 PM [facility] ABSOLUTE MONOCYTES 0.23 0.20 - 1.00 10(3)/[facility] 06/17/2024 6:15 PM [facility] ABSOLUTE EOSINOPHIL 0.11 0.00 - 0.40 10(3)/[facility] 06/17/2024 6:15 PM [facility] ABSOLUTE BASOPHILS 0.06 0.00 - 0.10 10(3)/[facility] 06/17/2024 6:15 PM [facility] NRBC PER 100 WBC 0 06/17/19 6:15 PM [facility] Blood Venipuncture / Unknown 06/17/2024 8:53 AM MESS COOK 06/17/2024 8:53 AM MESS COOK us Suly Prabhakar SUPERVISOR TUMBLERS, CUTTER OUT HEMATOLOGY ORDERABLE S Final Result [facility] [address] [place] [address] * THYROXINE (T4) FREE (06/17/2024 8:53 AM MESS COOK) Pathologist [facility] T4 FREE 0.9 0.7 - 1.9 ng/dL 06/17/2024 6:06 PM MESS COOK [facility] Blood Venipuncture / Unknown 06/17/2024 8:53 AM MESS COOK 06/17/2024 8:53 AM MESS COOK David Han MD CHEMISTRY ORDERABLES Final Result [facility] [address] [place] [address] * (ABNORMAL) THYROID STIMULATING HORMONE (TSH) (06/17/2024 8:53 AM MESS COOK) TSH 7.825(H) 0.300 - 5.000 mIU/L 06/17/2024 6:06 PM MESS COOK [facility] Blood Venipuncture / Unknown 06/17/2024 8:53 AM MESS COOK 06/17/2024 8:53 AM MESS COOK David Han MD CHEMISTRY ORDERABLES Final Result Performing Organization Address City/[facility]/ZIP Co de Phone Number [facility] [address] [place] [address] * (ABNORMAL) BASIC METABOLIC PANEL W/ CALCIUM TOTAL (06/17/2024 8:53 AM MESS COOK) SODIUM 141 136 - 145 mmol/L 06/17/2024 5:48 PM MESS COOK [facility] POTASSIUM 5.0 3.5 - 5.1 mmol/L 06/17/2024 5:48 PM MESS COOK [facility] CHLORIDE 109(H) 98 - 107 mmol/L 06/17/2024 5:48 PM MESS COOK [facility] CO2, VENOUS 24 22 - 30 mmol/L 06/17/2024 5:48 PM MESS COOK [facility] ANION GAP 13.0 <18.0 mmol/L 06/17/2024 5:48 PM MESS COOK [facility] GLUCOSE 112(H) 70 - 99 mg/dL 06/17/2024 5:48 PM MESS COOK [facility] BUN 26(H) 10 - 20 mg/dL 06/17/2024 5:48 PM MESS COOK [facility] CREATININE, BLOOD 0.80 0.60 - 1.00 mg/dL 06/17/2024 5:48 PM MESS COOK [facility] BUN/CREATININE RATIO 33(H) 12 - 20 ratio 06/17/2024 5:48 PM MESS COOK [facility] CALCIUM 9.1 8.7 - 10.5 mg/dL 06/17/2024 5:48 PM MESS COOK [facility] IS THE PATIENT REQUIRED TO BE FASTING? No 06/17/2024 5:48 PM MESS COOK [facility] GFR, ESTIMATED >60 >=60 06/17/2024 5:48 PM MESS COOK [facility] Comment: Creatinine Clearance is the preferred criteria for selecting drug dose adjustments in renally impaired patients. The GFR is provided as additional pertinent clinical information. GFR is reported in mL/min/1.73 sq m. Calculation based on the Chronic Kidney Disease Epidemiology Collaboration (CKD- EPI) equation refit without adjustment for race. GFR, EST. >60 >=60 025 5:48 PM MESS COOK [facility] GFR, EST. NONAFRICAN >60 >=60 06/17/2024 5:48 PM MESS COOK [facility] Blood Venipuncture / Unknown 06/17/2024 8:53 AM MESS COOK 06/17/2024 8:53 AM MESS COOK us Suly Prabhakar SUPERVISOR TUMBLERS, CUTTER OUT CHEMISTRY ORDERABLES Final Result [facility] [address] [place] [address] * INFLUENZA TEST (06/13/2024 12:00 AM MESS COOK) 06/13/2024 us Provider Scan MICROBIOLOGY - GENERAL ORDERABLE S Final Result SCAN * XR - CHEST (06/13/2024 12:00 AM MESS COOK) 06/13/2024 us Provider Scan IMG DIAGNOSTIC ORDERABLES Final Result Performing Organization [facility] de Phone Number SCAN * SARS-COV-2 BY MOLECULAR (06/13/2024 12:00 AM MESS COOK) 06/13/2024 us Provider Scan MICROBIOLOGY - GENERAL ORDERABLE S Final Result Performing Organization [facility] de Phone Number SCAN * IN-HOME CONSULT (05/12/2024 12:00 AM MESS COOK) 05/12/2024 us Provider Scan GENERIC SCAN ORDERS CONSULT Vicky l Result Performing Organization [facility] de Phone Number SCAN * HEMOGLOBIN, A1C (05/12/2024 12:00 AM MESS COOK) HGB-A1C 4.2 SCAN 05/12/2024 us Provider Scan CHEMISTRY ORDERABLES Final Resul t Performing Organization [facility] de Phone Number SCAN * HM DILATED EYE EXAM (05/12/2024 12:00 AM MESS COOK) 05/12/2024 us Provider Scan PROCEDURE/MINOR SURGICAL ORDERAB LES Final Result Performing Organization [facility] de Phone Number SCAN * BOBBY BONE DENSITOMETRY AXIAL SKELETON (10/22/2022 [...] Narrative 10/23/2022 11:25 AM CDT EXAM DESCRIPTION: BOBBY BONE DENSITOMETRY AXIAL SKELETON REASON FOR STUDY: 66 y/o year old F with given history of: Asymptomatic menopausal state Python Django Developer/Model: Basisnote [employer] (S/N [id number]) CLINICAL INFORMATION: Current height: 65 inches Maximum [...] Sukhjinder Allison M.D. MF: ERIN Report ID: [id number] Reading Location: [place] [address] Procedure Note Sukhjinder Allison MD - 10/23/2022 EXAM DESCRIPTION: BOBBY BONE DENSITOMETRY AXIAL SKELETON REASON FOR STUDY: 66 y/o year old F with given history of: Asymptomatic menopausal state Python Django Developer/Model: B[employer]note AG (S/N [id number]) CLINICAL INFORMATION: Current height: 65 inches Maximum [...] Sukhjinder Allison M.D. MF: ERIN Report ID: [id number] Reading Location: [place] [address] IMPRESSION: Osteoporosis. REFERENCE: Bone mineral density: Normal [...] [facility] BREAST TISSUE:There are scattered fibroglandular densities in [...] next screening exam. Electronically signed by: Deloris peres/terence:10/22/2022 19:42:16 Quality Control Engineer(s): RT Kateryna(R)(M), [facility] letter sent: Normal Exam Reading location: [facility] BI-RADS: 2 Benign Procedure Note Deloris Killian [...] Comparison is made to exam dated: 08/03/2020 [facility]. BREAST TISSUE:There are scattered fibroglandular densities in [...] exam. Electronically signed by: Deloris Killian M.D. ll/penyovanny:10/22/2022 19:42:16 Quality Control Engineer(s): RT Kateryna(R)(M), [facility] letter sent: Normal Exam Reading location: [facility] BI-RADS: 2 Benign David Han MD [facility] MAMMO ORDERABLES Final Result * (ABNORMAL) COLOGUARD (12/12/2021 5:45 AM CDT) Cologuard Positive( A) Negative LRN Comment: POSITIVE TEST RESULT. A positive Cologuard [...] screened with both Cologuard and colonoscopy. (Hi Ibrahim al, N Engl J Med 2014;370(14):1847-1299.) Cologuard may produce a false negative or false positive result (no colorectal cancer or precancerous polyp present at colonoscopy follow up). A negative Cologuard test result does not guarantee the absence of CRC or advanced adenoma (pre-cancer). The current Cologuard screening interval is every 3 years. ([place] Cancer Society and U.S. Multi-Society Task Force). Cologuard performance data in a 10,000 patient pivotal study using colonoscopy as the reference method can be accessed at the following location: www.[employer]results. Additional description of the Cologuard test process, warnings and precautions can be found at [email or web address]. Stool 12/12/2021 5:45 AM CDT 12/13/2021 6:37 PM CDT David Han MD BODY FLUIDS & STOOLS ORDERA BLES Final Result [employer] [address] [place] [address], [place]N [address] [place] [address] from Last 3 Months or Most Recently Relevant to Health Maintenance Insurance MEDICAID [place] MEDICARE C [employer]ET[employer] Advance Directives Documents on File Type Date Recorded Patient Editor School Photograph Expl anation Living Will 10/20/2023 9:31 AM DOUGLAS PÉREZ L, 10/17/2023 Power of Dinkey Motor Operator for Health Care 10/20/2023 9:31 AM POA-, 10/17/2023 * Full Code (Latest Code Status on File) Date Activated Date Inactivated Comments 11/03/2023 6:25 AM 11/05/2023 2:16 AM CPR-Full [place] tment: FULL ARREST: Attempt Resuscitation/CPR wit intubation and mechanical ventilation. PRE-ARREST: Use entire range of life support measures to stabilize the patient. Care Teams Paper Testing Supervisor Relationship Specialty Start Date End Date David Han MD [address] [place] [address] PCP - General Internal Medicine 01/14/20 Solomon Meyers MD PhD [address] [place] [address] Wire Frame Maker Interventional Cardiology 12/02/23 Marisela Hi, SUPERVISOR TUMBLERS, CUTTER OUT #[address] [place] [address] Nurse Practitioner Advanced Practice Nurse 01/19/24 Suly Prabhakar APRN, CUTTER OUT #2 [facility], [address] [place] [address] Nurse Practitioner Cardiology 03/24/24
--- OUTSIDE RECORDS SUMMARY | 2024-07-10 08:22 | XMS_ITS | Encounter Summary ---
Author Organization [facility] Address [address] [place] [address] Phone Care Team Providers Care Stair Builder Name Role Phone David Han MD Primary Care Provider [phone] Suly Prabhakar APRN, WAREHOUSE HELPER Unavailable + [phone] Solomon Meyers MD PhD Unavailable [phone] Marisela Hi APRN, WAREHOUSE HELPER Unavailable [phone] Suly Prabhakar APRN, WAREHOUSE HELPER Unavailable + [phone] Reason for Visit * Reason Comments Medication Refill Encounter Details Date Type Department Care Team (Late st Contact Info) Description 10/12/2020 Refill [facility] - Internal Medicine - Jaret [address] [place] [address] David Han MD [address] [place] [address] Medication Refill Social History Tobacco [...] Info) Description 07/28/2024 7:15 AM CDT Appointment [facility] [address] [place] [address] David Han MD [address] [place] [address] 09/13/2024 1:00 PM CDT Office Visit [facility] Cardiology [facility] [address] [place] [address] Suly Prabhakar APRN, WAREHOUSE HELPER #2 [facility] [address] [place] [address] 09/22/2024 8:00 AM CDT Lab [facility] Internal Medicine Jaret [address] [place] [address] Jaret Lance PEGGY 09/30/2024 9:30 AM CDT Office Visit [facility] Internal Medicine [facility] [address] [place] [address] David Han MD [address] [place] [address] 10/25/2024 8:00 AM CDT Office Visit [facility] - Pulmonology & Sleep Medicine [facility] #[address] [place] [address] Marisela Hi APRN, WAREHOUSE HELPER #2 [facility] [address] [place] [address] documented as of this encounter Visit Diagnoses Not on filedocumented in this encounter Additional Health Concerns Infection Onset Date Last Indicated Resolved Time COVID - 19 11/26/2021 11/26/2021 12/06/2021 12:1 6 AM CDT COVID - 19 06/16/2023 06/16/2023 06/26/2023 12:1 6 AM CITY JAILER Respiratory Rule-Out 06/16/2023 06/16/2023 024 10:28 AM CITY JAILER Assessment Noted Time PHQ-9 Depression Total Score: 0 07/26/19 21 9:00 AM CDT documented as of this encounter Care Teams Stair Builder Relationship Specialty Start Date End Date David Han MD [address] [place] [address] PCP - General Internal Medicine 01/14/20 Suly Prabhakar APRN, WAREHOUSE HELPER #2 [facility] [address] [place] [address] Nurse Practitioner Advanced Practice Nurse 10/29/23 Solomon Meyers MD PhD #2 [place] [address] [employer] Interventional Cardiology 12/02/23 Marisela Hi APRN, WAREHOUSE HELPER #2 [facility] [address] [place] [address] Nurse Practitioner Advanced Practice Nurse 01/19/24 Suly Prabhakar ORA, WAREHOUSE HELPER #2 [facility], [address] [place] [address] Nurse Practitioner Cardiology 03/24/24 documented as of this encounter
--- OUTSIDE RECORDS SUMMARY | 2024-07-10 08:22 | XMS_ITS ---
Author Organization [facility] Care Team Providers Care Cart Driver Name Role Phone David Han MD Primary Care Provider [phone] Solomon Meyers MD PhD Unavailable [phone] Marisela Hi APRN, RAISE MINER Unavailable [phone] Suly Prabhakar APRN, RAISE MINER Unavailable + [phone] [facility] Status:Enrolled (Active) Start date:05/26/2024 Enrollment date:05/26/2024 Related social drivers of health:Financial Resource Strain, Physical Activity Continued Care and Services Coordination
[2024-07-10 08:23] VITALS: BP 121/65; PULSE 68; RESP 18; TEMP 36.9; O2SAT 98
--- OUTSIDE RECORDS SUMMARY | 2024-07-10 08:23 | XMS_ITS | Continuity of Care Document ---
Author Organization [facility] Address [address] [place] [address] Phone Care Team Providers Care Reservation Agent Name Role Phone Nolan Dye MD Unavailable [...] Encounter Office/outpat ient visit,est, mod [facility], [address] [facility] [address] [facility], [place], [place], [id number], [place] tel:[phone] [facility] COLLES FRACTURE CLOSEDFX DISTAL RADIUS NEC-CLJOINT PAIN-FOREARM 2 Hardik Francisco. [address] [facility], [address], [place], [place], [id number] , [place]. tel:[phone] Office/outpat ient visit,est, [facility], [address], [id number], [place] [phone] [address] [facility] COLLES FRACTURE CLOSEDFX DISTAL RADIUS NEC-CLJOINT PAIN-FOREARM [address]. [address] [facility], [address], [id number] , [place]. tel: [phone] Office/outpat ient visit,est, [facility], [address], [id number], [place] [phone] [facility] COLLES FRACTURE CLOSEDJOINT PAIN-FOREARM 2 Dye Nolan. [address], [id number] , [place]. tel: [phone] Office/outpat ient visit,est, [facility], [address], [id number], [place] [phone] [facility] COLLES FRACTURE CLOSEDFX DISTAL RADIUS NEC-CLJOINT PAIN-FOREARM 2 Dye Nolan. [address] [address], [place], [place], [id number] , [place]. tel: [phone] Office consultation, [facility], [address] [place] [address], [id number], [place] [phone] [facility] SPRAIN OF WRIST NOS 2 Hardik Francisco. [address], [id number] , [place]. tel: [phone] Family History Family Member Type Diagnosis Age At Onset No Information Payers Payer name Insurance type Covered republican ID Cruz bibiana(s) [employer] [id number] Social History Type Description Quantity Date Captured [...]
--- OUTSIDE RECORDS SUMMARY | 2024-07-10 08:24 | XMS_ITS | CONTINUITY OF CARE DOCUMENT ---
Author Name brenda gutierrez Address Unknown Organization [facility] Address [address] [facility] [address] [place] [address] Phone [phone] Care Team Providers Care Railway Traction Line Worker Name Role Phone Bhargav Rivera MD Unavailable ARIANA RIVERS MD Unavailable [phone] ARIANA RIVERS MD Unavailable [phone] PROBLEMS Condition Status Date Provider Notes CARDIAC MURMUR-08/09 ECHO MIKAYLA S DYS PASP 43 EF 55 active ? Bhargav Rivera MD OBESITY- 2008 GASTRIC BYPASS DONE FISHMAN active ? Bhargav Rivera MD HTN ESSENTIAL active Bhargav Rivera MD ENCOUNTERS Date Type Provider Location Encounter Diagnosis - In-person encounter Office Visit Bhargav Rviera MD [facility] - In-person encounter Office Visit Bhargav Rivera MD [facility] CARDIAC MURMUR-08/09 ECHO IRAHETA DYS PASP 43 EF 55HTN ESSENTIAL - In-person encounter Office Visit Bhargav Rivera MD [facility] OBESITY- 2008 GASTRIC BYPASS DONE FISHMAN [...] Terri Manning blood pressure, diastolic 87 mm[Hg] Oewn addison Avilez RN blood pressure, systolic 149 [...] type / Coverage type French mascorro ID [facility] Medicaid 1 [id number] [place] [employer] Medicare [id number] TREATMENT PLAN Date Name Performer test results [...] Prior BP: / () Orders: E KG (CPT-56285) C omplete Echo (CPT-05662) Bhargav Rivera MD heart murmur Bhargav Rivera MD Date Name Complete Echo BASIC METABOLIC PANE L W/EGFR Complete Echo HISTORY OF PROCEDURES Procedure Date Procedure Name Provider Procedure Notes S tatus EKG Emelina Salguero TOLL LINEMAN complet ed
--- NOTE | 2024-07-10 08:48 | ED_ITS ---
HPI - URI/Sore Throat General Chief Complaint: Upper Respiratory Infection Stated Complaint: Sore Throat/Cough/Fever Time Seen by Provider: 07/10/24 08:48 Source: patient, RN notes reviewed and old records reviewed Mode of arrival: ambulatory Limitations: no limitations History of Present Illness HPI Narrative: 68 year old female who presents to [facility] care with complaints of sore throat, cough, and fever which started on . Patient reports that she has headache and body aches also and has been taking DayQuil for her symptoms. Patient states that family members have tested positive for COVID and she was around them before they were diagnosed. Patient reports that she had COVID booster about a month ago MD elicited complaint: cough and sore throat Pertinent past history: other (CHF. atrial fibrillation, blood thinner) Onset (ago): day(s) (3 days) Consistency: constant Severity: moderate Pain scale (0-10): 6 Able to tolerate fluids by mouth: Yes Treatments prior to arrival: other (DayQuil) Related Data Home Medications ?Medication ?Instructions ?Recorded ?Confirmed ?Last Taken ?Type furosemide 40 mg tablet 40 mg PO DAILY 05/17/20 10/08/22 Unknown History ferrous sulfate 325 mg (65 mg 325 mg PO DAILY 07/05/22 10/08/22 Unknown History iron) tablet hydrocodone 7.5 mg-acetaminophen tablet 01/04/23 Unknown History 325 mg tablet omeprazole 20 mg capsule,delayed mg 01/04/23 Unknown History release pregabalin 50 mg capsule mg 01/04/23 Unknown History topiramate 100 mg tablet mg 01/04/23 Unknown History alendronate 70 mg tablet mg PO 01/03/24 Unknown History amiodarone 200 mg tablet mg 01/03/24 Unknown History apixaban 5 mg tablet (Eliquis) mg 01/03/24 Unknown History lisinopril 2.5 mg tablet mg 01/03/24 Unknown History topiramate 100 mg tablet mg 01/03/24 Unknown History Allergies Allergy/AdvReac Type Severity Reaction Status Date / Time No Known Allergies Allergy Verified 07/10/24 08:44 Review of Systems Review of Systems: CONSTITUTIONAL: Reports malaise, chills, sweats, or fever. EYES: Denies visual changes, redness, or discharge. ENT: Reports rhinorrhea, congestion, sinus pain,no otalgia and positive for sore throat. CARDIOVASCULAR: Denies chest pain, palpitations, or edema. RESPIRATORY: Reports cough.? Denies acute dyspnea. GASTROINTESTINAL: Denies abdominal pain, nausea, vomiting, diarrhea SKIN: Denies rash or itching. MUSCULOSKELETAL:Reports myalgia. NEUROLOGIC: Reports headache. All systems reviewed & are unremarkable except as noted in HPI and below PMFSH Past Medical History Medical History Chronic anticoagulation since Afib diagnosis summer 2023 Heart failure History of atrial fibrillation cardioverted @ [facility] summer 2023 Arthritis Surgical History Surgical History Hx of cholecystectomy History of knee replacement Social History Social History Smoking status: Never smoker Alcohol intake: never Living arrangements: with family Additional living arrangements comments: Comments At time of signature, agree with nursing past medical, surgical, social and family history. There is no relevant family history pertinent to the presenting complaint Exam Narrative: GENERAL: Ill-appearing, well-nourished, and in no acute distress. HEAD: Normocephalic EYES: PERRLA, conjunctivae clear ENT: Nares clear, turbinates edematous and erythematous, clear discharge. Mucous membranes moist. TM pearly russell with dull light reflex bilaterally; no tragal tenderness. Oropharynx erythematous without lesions. Tonsils not present and throat without exudate, no drooling, no hoarseness, no trismus, uvula midline, reports sore throat, post nasal drainage present NECK: Supple. No lymphadenopathy CHEST: Clear to auscultation, breath sounds equal. No wheezing, rhonchi, rales, or stridor. No respiratory distress, speaks in full sentences. cough noted SAO2 98% on room air HEART: Regular rate and rhythm. No murmur heard. SKIN: Warm, dry, no rash. NEURO: Alert and oriented x3. PSYCH: Normal mood and affect Course Course Emergency Course: Patient is aware of diagnosis, understands and agrees to treatment plan.? Anticipatory guidance given.? Patient agrees to follow-up as directed and is aware of reasons to seek care at the emergency department. Portions of this record may have been created with voice recognition software Molecular Imaging of Care: Express Care Visit Vital Signs Vital signs: Vital Signs Temperature 36.9 C 07/10/24 08:23 Pulse Rate 68 07/10/24 08:23 Respiratory Rate 18 07/10/24 08:23 Blood Pressure 121/65 07/10/24 08:23 Pulse Oximetry 98 07/10/24 08:23 Oxygen Delivery Room Air 07/10/24 08:23 Temperature 36.9 C 07/10/24 08:23 Pulse Rate 68 07/10/24 08:23 Respiratory Rate 18 07/10/24 08:23 Blood Pressure 121/65 07/10/24 08:23 Pulse Oximetry 98 07/10/24 08:23 Oxygen Delivery Room Air 07/10/24 08:23 Reviewed MDM - URI/Sore Throat MDM Narrative Medical decision making narrative: Differential diagnosis considered: Pedro virus, strep pharyngitis, allergic rhinitis, upper respiratory tract infection, sinusitis, rhinosinusitis, nasopharyngitis. viral pharyngitis, otitis media, otitis externa, pneumonia, bronchitis, viral cough syndrome, viral syndrome, and influenza.? Exam findings show no acute concerns or changes; patient is non-toxic appearing and is in no distress.? Patient is appropriate for outpatient treatment and follow-up. Differential Diagnosis Differential diagnosis: Likely upper respiratory infection, viral infection, influenza and other (COVID, cough) Medical Records Attestation: I reviewed the patient's medical records. Lab Data Attestation: I reviewed the patient's lab results. Lab results narrative: Influenza A negative, Influenza B negative, COVID antigen negative, strep screen negative, strep culture sent Labs: Lab Results 07/10/24 Range/Units 08:55 POC Influenza A Ag Negative (Negative) POC Influenza B Ag Negative (Negative) POC SARS CoV-2 Ag Positive (Negative) POC Grp A Strep Screen Negative (Negative) reviewed Critical Care Time Critical Care Time Critical Care Time: No Discharge Plan Discharge Clinical Impression: COVID-19 Patient Disposition: Home, Self-Care Condition: Stable Instructions: How to Recover from COVID-19 at Home (ED) Additional Instructions: Increase fluids especially juices and water [id number] cough and cold medicine of your choice for your symptoms Cough tablets as directed for cough--do not bite, chew or suck on--swallow whole Zyrtec Claritin or Chrissy daily Tylenol or ibuprofen for any fever pain heat to the face 20-30 minutes 4-6 times a day for pain Salt water gargles, throat lozenges or throat sprays as desired Must quarantine for 5 day from start of symptoms If your symptoms persist, change or worsen significantly before you can contact your personal physician then please, without delay, go to the emergency department for further evaluation. Follow-up with PCP in 7-10 days or sooner if needed COVID-19 DISCHARGE The following recommendations have been made by the CDC and local Health Departments, regarding COVID-19: Those individuals with mild cases of COVID-19 can generally be discontinued from isolation, 5 days AFTER the onset of symptoms AND the resolution of fever for 24hrs (without the use of fever-reducing medications) Those individuals who were asymptomatic, and tested positive, are discontinued from isolation 10 days AFTER their first positive COVID-19 test Those individuals with SEVERE to CRITICAL illness or immunocompromised diseases may require up to 20 days of home isolation or hospitalization Majority of mild to moderate cases can be treated at home, without hospitalization or prescription medications You do not need a negative test result to return to work/school, assuming the above recommendations have been met and you are not symptomatic. At this time, return to work/school notes will not be provided. Guidelines from the local Health Department, CDC, and workplace are expected to be followed. All individuals in the household need to remained quarantined for up to 14 days if asymptomatic OR 10 days after the start of symptoms. Everyone in the home DOES NOT require testing, they are presumed positive and should quarantine as directed. Treating symptoms for mild to moderate cases may include: Tylenol, Flonase/nasal spray, OTC cold/flu medications recommended from your provider or any necessary prescription medications provided at your visit or from your PCP IF YOU TESTED NEGATIVE If you are symptomatic with reason to believe you have COVID-19, there is a high possibility your rapid test may not have detected the virus. Rapid testing is dependent on timing and viral load and may have a false- negative reading You should follow appropriate guidelines regarding quarantine, hand washing, mask wearing, and social distancing You may be sent for PCR testing as an outpatient to the [facility] site Common Adult Symptoms: Fever/chills Cough Shortness of breath Fatigue, muscle aches Headache Loss of taste/smell Sore throat, congestion, runny nose GI symptoms (nausea, vomiting, diarrhea) Common Pediatric Symptoms Cough Fever GI symptoms (diarrhea, upset stomach, nausea, vomiting) Symptoms may differ in severity however, most cases do not require hospitalization. WHEN TO SEEK ER EVALUATION/TREATMENT Severe/persistent shortness of breath or difficulty breathing Elevated, persistent fevers without resolution with fever-reducing medications Chest pain Extreme fatigue/lethargy Complications of pre-existing disease Patient Language: Japanese Prescriptions: New benzonatate 200 mg capsule 200 mg PO TID PRN (Reason: cough) Qty: 20 0RF Rx Instructions: take for cough No Action ferrous sulfate 325 mg (65 mg iron) tablet 325 mg PO DAILY hydrocodone-acetaminophen 7.5-325 mg tablet omeprazole 20 mg capsule,delayed release(DR/EC) topiramate 100 mg tablet pregabalin 50 mg capsule amiodarone 200 mg tablet alendronate 70 mg tablet PO topiramate 100 mg tablet lisinopril 2.5 mg tablet Eliquis 5 mg tablet furosemide 40 mg tablet 40 mg PO DAILY Follow-up/Referrals: Guille,David Leyva MD [Primary Care Provider] - Time of Disposition: 09:12 Quality May Coma Scale Eyes: Open Verbal: Oriented and Alert Motor: Follows Commands May Coma Total Score: 15
[2024-07-10 08:58] LABS: EDCOVIDSCREEN Positive (Negative); EDINFLUASCREEN Negative (Negative); EDINFLUBSCREEN Negative (Negative); EDSTREPNEGPOS1 Negative (Negative)
== END 2024-07-10 09:20 | disposition home or self-care (01) ==
PROVIDERS: Emergency Provider Registered Nurse; PCP Internal Medicine
DX: U07.1 COVID-19 (principal); I48.91 Unspecified atrial fibrillation; I50.9 Heart failure, unspecified; M19.90 Unspecified osteoarthritis, unspecified site
CPT/HCPCS: 87081; 87426; 87804; 87880; 99213; G0463